=== PATIENT | female | born 1955 | race Caucasian/White ===

== ENCOUNTER 2016-06-01 11:03 | Emergency (ER) | payer MEDICAID | END 2016-06-01 12:38 | disposition left against medical advice (07) | LOC: UCEAST 11:03 | DX: T14.8 Other injury of unspecified body region (principal); W57.XXXA Bitten or stung by nonvenomous insect and other nonvenomous arthropods, initial encounter; Y93.9 Activity, unspecified; Y92.9 Unspecified place or not applicable; Z53.21 Procedure and treatment not carried out due to patient leaving prior to being seen by health care provider ==

== ENCOUNTER 2016-06-01 14:32 | Emergency (ER) | payer MEDICAID, OTHER ==
[2016-06-01 16:47] VITALS: BP 106/65
--- NOTE | 2016-06-01 17:07 | UC ---
Skin Complaint HPI - HPI Summary HPI Summary: PT NOTICED A TICK ATTACHED TO RIGHT LOWER ABDOMEN THIS MORNING. REMOVED IT BUT DID NOT GET THE WHOLE THING. SHE IS FAIRLY CERTAIN THE TICK ATTACHED YESTERDAY AFTERNOON WHILE SHE WAS OUT GARDENING. - History of Current Complaint Chief Complaint: UCSkin Time Seen by Provider: 06/01/16 16:51 Stated Complaint: TICK BITE Hx Obtained From: Patient Onset/Duration: Sudden Onset Skin Exposure Onset/Duration: Hours Ago Timing: Constant Onset Severity: Mild Current Severity: Mild Pain Intensity: 0 Pain Scale Used: 0-10 Numeric Location: Other - RIGHT LOWER ABDOMEN Character: Pain, Redness Aggravating: Touch Alleviating: Nothing Associated Signs & Symptoms: Positive: Tenderness. Negative: Nausea, Weakness, Fever, Chills, Throat Tightening, Rash, Abdominal Pain, Lightheadedness, Syncope , Drainage, Bruising, Red Streaks Related History: Insect Bite/Sting - Allergy/Home Medications Allergies/Adverse Reactions: Allergies Allergy/AdvReac Type Severity Reaction Status Date / Time NSAIDs Allergy Severe Swelling Verified 06/01/16 16:39 Of Face,Lips,& Throat Review of Systems Constitutional: Negative Skin: Other - TICK BITE Respiratory: Negative Cardiovascular: Negative Gastrointestinal: Negative All Other Systems Reviewed And Are Negative: Yes PMH/Surg Hx/FS Hx/Imm Hx Endocrine History Of: Reports: Thyroid Disease - hypo Respiratory History Of: Reports: Asthma - Surgical History Surgical History: Yes Surgery Procedure, Year, and Place: tonsilectomy. thyroidectomy. hysterectomy. bladder lift with mesh. nasal reconstruction. left breast mastectomy - Family History Known Family History: Positive: Hypertension, Diabetes - Social History Alcohol Use: Rare Substance Use Type: None Smoking Status (MU): Never Smoked Tobacco Have You Smoked in the Last Year: No - Immunization History Most Recent Influenza Vaccination: none Physical Exam Triage Information Reviewed: Yes Appearance: Well-Appearing, No Pain Distress, Well-Nourished Vital Signs: Initial Vital Signs Temp 97.8 F 06/01/16 16:44 Pulse 64 06/01/16 16:44 Resp 16 06/01/16 16:44 BP 106/65 06/01/16 16:44 Pulse Ox 100 06/01/16 16:44 Vital Signs Reviewed: Yes Eyes: Positive: Conjunctiva Clear ENT: Positive: Hearing grossly normal Neck: Positive: Supple Respiratory: Positive: No respiratory distress, No accessory muscle use Cardiovascular: Positive: Pulses Normal Abdomen Description: Positive: Soft Musculoskeletal: Positive: No Edema Neurological: Positive: Alert Psychological: Positive: Age Appropriate Behavior Skin: Positive: Other - TICK BITE SITE RIGHT LOWER ABDOMEN. MILDLY TENDER. <1CM AREA OF SURROUNDING ERYTHEMA. PINPOINT SIZED TICK PART RETAINED. Course/Dx - Course Course Of Treatment: RETAINED TICK PART REMOVED USING 18 GAUGE NEEDLE. COUNSELED PT ON CRITERIA FOR LYME PROPHYLAXIS. PT DOES NOT MEET CRITERIA BASED ON LENGTH OF TIME OF TICK ATTACHMENT. SHE WILL BE VIGILANT OF HER SYMPTOMS AND SEEK FOLLOW-UP IF NEEDED. - Diagnoses Provider Diagnoses: TICK BITE Discharge - Discharge Plan Condition: Stable Disposition: HOME Patient Education Materials: Tick Bite (ED) Referrals: Sobia PECK,Destin Lainez [Primary Care Provider] - If Needed Additional Instructions: The Infectious Disease Society of [place] (IDSA) does not generally recommend antimicrobial prophylaxis for prevention of Lyme disease after a recognized tick bite. However, in areas that are highly endemic for Lyme disease, a single dose of doxycycline may be offered to adult patients (200 mg) who are not and to children older than 8 years of age (4 mg/kg up to a maximum dose of 200 mg) when all of the following circumstances exist: CRITERIA FOR RECEIVING PROPHYLACTIC TREATMENT FOR LYME DISEASE 1) TICK ATTACHED FOR AT LEAST 36 HRS 2) TICK IS AN ADULT OR [place] DEER TICK 3) YOU LIVE IN AN AREA WHERE LYME DISEASE IS PREVALENT (i.e., [place], [place], [place], [place], [place] , [place], [place], [place], [place], [place], [place], [place], [place], [place]) 4) YOU HAVE NO CONTRAINDICATION TO THE MEDICATION (DOXYCYCLINE) 5) PROPHYLAXIS IS BEGUN WITHIN 72 HRS OF TICK REMOVAL SINCE YOU DO NOT MEET ALL THESE CRITERIA THERE IS NO NEED TO GIVE YOU PROPHYLACTIC ANTIBIOTICS. YOUR CHANCES OF DEVELOPING LYME DISEASE ARE EXTREMELY SMALL. BE VIGILANT OF YOUR SYMPTOMS AND DON'T HESITATE TO GET SEEN AGAIN IF YOU DEVELOP UNEXPLAINED FEVER, HEADACHE, JOINT PAIN, BODY ACHES, RASH OR ANY OTHER CONCERNING SYMPTOMS. Antibiotic treatment following a tick bite is not recommended as a means to prevent anaplasmosis, babesiosis, ehrlichiosis, or [place] spotted fever. There is no evidence this practice is effective, and it may simply delay onset of disease. Instead, persons who experience a tick bite should be alert for symptoms suggestive of tickborne illness and consult a physician if fever, rash, or other symptoms of concern develop.
== END 2016-06-01 17:25 | disposition home or self-care (01) ==
LOC: UCEAST 14:32
DX: S30.861A Insect bite (nonvenomous) of abdominal wall, initial encounter (principal); W57.XXXA Bitten or stung by nonvenomous insect and other nonvenomous arthropods, initial encounter; Y92.9 Unspecified place or not applicable; E03.9 Hypothyroidism, unspecified; J45.909 Unspecified asthma, uncomplicated
CPT/HCPCS: 99211; G0463

== ENCOUNTER 2016-06-09 09:22 | Emergency (ER) | payer MEDICAID ==
[2016-06-09 09:43] VITALS: BP 110/55
--- NOTE | 2016-06-09 10:54 | UC ---
Page Saab Auryana, scribed for Kenan Ferrer MD on 06/09/16 at 1042 . Headache HPI - HPI Summary HPI Summary: 60 year old female presents with left sided neck pain starting a few days ago becoming progressively worse. She also reports frontal headache, right knee arthralgia, and fatigue. She states that she has had increasingly worse asthma with associated productive cough but she denies fever and chills. She states the neck pain is radiating into the neck. Patient reports that she was bit by a tick 8 days ago, removed the body and but went to physician the following day to have rest removed. She reports that she a few days ago she removed the rest of the head. No medications were prescribed at time of physician visit. - History Of Current Complaint Chief Complaint: UCHeadache Stated Complaint: HEADACHES, NECK PAIN Time Seen by Provider: 06/09/16 10:20 Hx Obtained From: Patient Hx Last Menstrual Period: N/A ?: No Onset/Duration: Gradual Onset, Still Present Onset Of Symptoms: Gradual, Still Present Initially Headache Was: Moderate Currently Pain Is: Moderate Timing: Constant Location of Headache: Frontal Associated Signs And Symptoms: Positive: Neck Pain, Other (Noted In Comments) - fatigue, productive cough, right knee arthralgia Related History: Similar Episode/DX As: - see HPI - Allergies/Home Medications Allergies/Adverse Reactions: Allergies Allergy/AdvReac Type Severity Reaction Status Date / Time NSAIDs Allergy Severe Swelling Verified 06/01/16 16:39 Of Face,Lips,& Throat PMH/Surg Hx/FS Hx/Imm Hx Endocrine History Of: Reports: Thyroid Disease - hypo Respiratory History Of: Reports: Asthma - Surgical History Surgical History: Yes Surgery Procedure, Year, and Place: tonsilectomy. thyroidectomy. hysterectomy. bladder lift with mesh. nasal reconstruction. left breast mastectomy - Family History Known Family History: Positive: None, Hypertension, Diabetes - Social History Occupation: Employed Part-time Lives: Alone Alcohol Use: Rare Substance Use Type: None Smoking Status (MU): Never Smoked Tobacco Have You Smoked in the Last Year: No - Immunization History Most Recent Influenza Vaccination: none Review of Systems Constitutional: Fatigue Skin: Negative Eyes: Negative ENT: Negative Respiratory: Cough - productive Cardiovascular: Negative Gastrointestinal: Negative Genitourinary: Negative Motor: Negative Neurovascular: Negative Musculoskeletal: Arthralgia - right knee, Other: - neck pain Neurological: Headache - frontal Psychological: Negative All Other Systems Reviewed And Are Negative: Yes Physical Exam Triage Information Reviewed: Yes Appearance: Well-Nourished, Pain Distress - mild Vital Signs: Initial Vital Signs Temp 97.9 F 06/09/16 09:36 Pulse 60 06/09/16 09:36 Resp 16 06/09/16 09:36 BP 110/55 06/09/16 09:36 Pulse Ox 100 06/09/16 09:36 Vital Signs Reviewed: Yes Eyes: Positive: Conjunctiva Clear ENT: Positive: Normal ENT inspection Neck: Positive: Supple, Tenderness @ - left posterior neck - lateral muscles - down to the trapezius Respiratory: Positive: Lungs clear Cardiovascular: Positive: RRR Bowel Sounds: Positive: Present Musculoskeletal: Positive: ROM Intact Neurological: Positive: Alert Psychological: Positive: Age Appropriate Behavior Skin: Positive: Other - RLQ 1cm area of erythema s/p tickbite Headache Course/Dx - Course Course Of Treatment: DICUSSED WITH PATIENT; DDX OF MYALGIAS, ARTHRALGIA, LYME. WILL TREAT FOR LYME AND RX NORCO FOR PAIN. CLINICALLY, THIS IS NOT MENINGITIS AT THIS TIME; LEFT NECK PAIN, FRONTAL LANDA, NO FEVER. DISCUSSED PMD F/U AND TO GO TO EMERGENCY DEPARTMENT IF WORSEN. - Differential Dx/Diagnosis Provider Diagnoses: LEFT SIDED NECK PAIN, FRONTAL HEADACHE, RT KNEE PAIN IN THE CONTEXT OF A RECENT TICK BITE. Discharge - Discharge Plan Condition: Stable Disposition: HOME Patient Education Materials: Tick Bite (ED), Acute Neck Pain (ED), General Headache (ED) Referrals: Sobia PECK,Destin Lainez [Primary Care Provider] - 2 Days Additional Instructions: FOLLOW UP WITH YOUR DOCTOR FOR YOUR NECK PAIN, HEADACHE, KNEE PAIN AND TICK BITE. YOU HAVE BLOOD WORK, TO INCLUDE A LYME TITER, PENDING. GO THE EMERGENCY DEPARTMENT WITH ANY WORSENING OF YOUR CONDITION OR QUESTIONS OR CONCERNS. The documentation as recorded by the Page hennessy Auryana accurately reflects the service I personally performed and the decisions made by me, Kenan Ferrer MD.
[2016-06-09 16:16] LABS: ALT 16 U/L (7-52); AST 16 U/L (13-39); Albumin 4.4 g/dL (3.2-5.2); Alkaline Phosphatase 70 U/L (34-104); Anion Gap 5 mmol/L (2-11); BUN/Creatinine Ratio 28.9 (8-20); Blood Urea Nitrogen 26 mg/dL (6-24); C Reactive Protein < 1.00 mg/L (< 5.00); CO2 Carbon Dioxide 29 mmol/L (22-32); Calcium 9.1 mg/dL (8.6-10.3); Chloride 104 mmol/L (101-111); EGFR African American 81.6 (>60); EGFR Non-African American 63.4 (>60); Globulin 1.8 g/dL (2-4); Glucose 94 mg/dL (70-100); Potassium 4.7 mmol/L (3.5-5.0); Sodium 138 mmol/L (133-145); Total Protein 6.2 g/dL (6.4-8.9)
[2016-06-09 16:20] LABS: Hematocrit 40 % (35-47); Hemoglobin 12.8 g/dl (12.0-16.0); Mean Corpuscular HGB Conc 32 g/dl (31-36); Mean Corpuscular Hemoglobin 29 pg (27-31); Mean Corpuscular Volume 88 fL (80-97); Mean Platelet Volume 10 um3 (7.4-10.4); Red Blood Count 4.49 10^6/ul (4.0-5.4); Red Cell Distribution Width 15 % (10.5-15); White Blood Count 19.7 10^3/ul (3.5-10.8)
[2016-06-09 16:22] LABS: Add Diff/Slide Review? Slide Review Added; Comments Flag Yes
[2016-06-09 17:05] LABS: Add Path Review? YES; Neutrophil % 19 % (38-83); RBC Morphology Normal (Normal); Reactive Lymph % 33 % (0-6)
[2016-06-09 17:17] LABS: Manual Entry Verification MD; Mono Internal Control QC Line Present
== END 2016-06-09 11:07 | disposition home or self-care (01) ==
LOC: UCEAST 09:22
DX: M54.2 Cervicalgia (principal); R51 Headache; M25.561 Pain in right knee; E03.9 Hypothyroidism, unspecified; J45.909 Unspecified asthma, uncomplicated; Z90.710 Acquired absence of both cervix and uterus; Z88.6 Allergy status to analgesic agent
CPT/HCPCS: 36415; 80053; 85025; 85060; 86140; 86308; 86618; 99212; G0463

== ENCOUNTER 2016-06-10 16:10 | Emergency (ER) | payer MEDICAID ==
[2016-06-10] MEDS ORDERED: NS 0.9% 1000 ML* 1,000 ML IV ONE (17:49)
[2016-06-10 18:43] LABS: Hematocrit 35 % (35-47); Hemoglobin 11.5 g/dl (12.0-16.0); Mean Corpuscular HGB Conc 33 g/dl (31-36); Mean Corpuscular Hemoglobin 29 pg (27-31); Mean Corpuscular Volume 88 fL (80-97); Mean Platelet Volume 9 um3 (7.4-10.4); Red Blood Count 4.01 10^6/ul (4.0-5.4); Red Cell Distribution Width 15 % (10.5-15)
--- NOTE | 2016-06-10 18:43 | RAD ---
HISTORY: Headache COMPARISONS: May 05, 2004 TECHNIQUE: Multiple contiguous axial CT scans were obtained of the head without intravenous contrast. FINDINGS: HEMORRHAGE/INFARCT: There is no hemorrhage or acute infarct. MASSES/SHIFT: There is no mass or shift. EXTRA-AXIAL SPACES: There are no extra-axial fluid collections. SULCI AND VENTRICLES: The sulci and ventricles are normal in size and position for the patient's stated age. CEREBRUM: There are no focal parenchymal abnormalities. BRAINSTEM: There are no focal parenchymal abnormalities. CEREBELLUM: There are no focal parenchymal abnormalities. VESSELS: The vessels are grossly normal. PARANASAL SINUSES: The paranasal sinuses are clear. ORBITS: The orbits are unremarkable. BONES AND SOFT TISSUE: No bone or soft tissue abnormalities are noted. OTHER: None IMPRESSION: NO ACUTE INTRACRANIAL PATHOLOGY.
[2016-06-10 18:44] LABS: Add Diff/Slide Review? Slide Review Added; Comments Flag Yes
[2016-06-10 19:18] LABS: Neutrophil % 18 % (38-83); RBC Morphology Normal (Normal); Reactive Lymph % 19 % (0-6)
[2016-06-10 20:00] LABS: ALT 16 U/L (7-52); AST 19 U/L (13-39); Albumin 3.7 g/dL (3.2-5.2); Alkaline Phosphatase 63 U/L (34-104); Anion Gap 6 mmol/L (2-11); BUN/Creatinine Ratio 28.9 (8-20); Blood Urea Nitrogen 26 mg/dL (6-24); C Reactive Protein < 1.00 mg/L (< 5.00); CO2 Carbon Dioxide 28 mmol/L (22-32); Calcium 8.7 mg/dL (8.6-10.3); Chloride 105 mmol/L (101-111); EGFR African American 81.6 (>60); EGFR Non-African American 63.4 (>60); Glucose 109 mg/dL (70-100); Lipase 45 U/L (11.0-82.0); Sodium 139 mmol/L (133-145); Total Protein 5.7 g/dL (6.4-8.9)
[2016-06-10] MEDS ORDERED: NS 0.9% 1000 ML* 1,000 ML IV SCH (21:30)
[2016-06-10 22:06] LABS: Body Fluid Appearance Clear
[2016-06-10 22:16] LABS: BF RBC Count #1 0; BF RBC Count #2 0; BF WBC Count #1 0; BF WBC Count #2 0; Body Fluid WBC 0 /mcL; CSF Glucose 58 mg/dL (40-70); RBC counts within 6%? Yes; WBC counts within 15%? Yes
[2016-06-10 22:32] LABS: Body Fluid Total Cells Counted 1
--- NOTE | 2016-06-10 22:55 | ED ---
Hitesh Saab Anna, scribed for Kenan Ferrer MD on 06/10/16 at 1729 . Headache - HPI Summary HPI Summary: Patient is a 60 y/o female coming to [facility] presenting with a worsening LANDA that began five days ago. She describes the severity of the pain as 6/10. Patient was seen yesterday at [facility] [place]. She had a tick nine days ago, which was removed by her doctor, but then she later found the tick head in her skin. She then developed head and neck pain begining seven days ago. She additionally reports fatigue. She denies fever. She started taking Doxycycline was prescribed yesterday, but she has not gotten it yet. Her history is significant for CLL. She reports the WBC from yesterdays labs is lower than her most recent visit to oncology. Her lyme screen yesterday was negative. Patient medications have been reviewed this visit. - History Of Current Complaint Chief Complaint: EDNeckComplaint Stated Complaint: TICK BITE-SENT FROM [facility] Time Seen by Provider: 06/10/16 17:27 Hx Obtained From: Patient Hx Last Menstrual Period: N/A Onset/Duration: Sudden Onset, Started days ago, Still Present Currently Pain Is: Current Pain Scale(0-10)= - 6/10 Location of Headache: Frontal Associated Signs And Symptoms: Neck Pain - Allergies/Home Medications Allergies/Adverse Reactions: Allergies Allergy/AdvReac Type Severity Reaction Status Date / Time NSAIDs Allergy Severe Swelling Verified 06/01/16 16:39 Of Face,Lips,& Throat PMH/Surg Hx/FS Hx/Imm Hx Endocrine/Hematology History: Reports: Hx Thyroid Disease - hypo Respiratory History: Reports: Hx Asthma - Cancer History Cancer Type, Location and Year: clll, breast ca - Surgical History Surgery Procedure, Year, and Place: tonsilectomy. thyroidectomy. hysterectomy. bladder lift with mesh. nasal reconstruction. left breast mastectomy Infectious Disease History: Reports: Hx Shingles Denies: Hx Hepatitis, Hx of Known/Suspected MRSA, History Other Infectious Disease, Traveled Outside the [place] in Last 30 Days - Family History Known Family History: Positive: Hypertension, Diabetes - Social History Alcohol Use: Rare Substance Use Type: Reports: None Smoking Status (MU): Never Smoked Tobacco Have You Smoked in the Last Year: No Review of Systems Negative: Fever Positive: Arthralgia Positive: Headache All Other Systems Reviewed And Are Negative: Yes Physical Exam Triage Information Reviewed: Yes Vital Signs On Initial Exam: Initial Vitals Temp Pulse Resp BP Pulse Ox 98.1 F 70 18 118/53 100 06/10/16 16:12 06/10/16 16:12 06/10/16 16:12 06/10/16 16:12 06/10/16 16:12 Vital Signs Reviewed: Yes Appearance: Positive: Well-Appearing, No Pain Distress Skin: Positive: Warm, Skin Color Reflects Adequate Perfusion, Dry Head/Face: Positive: Normal Head/Face Inspection Eyes: Positive: EOMI, SHAMIKA ENT: Positive: Normal ENT inspection Neck: Positive: Supple, Other: - Full range of motion. Some pain with ROM of neck. Respiratory/Lung Sounds: Positive: Clear to Auscultation, Breath Sounds Present Cardiovascular: Positive: RRR Abdomen Description: Positive: Nontender, Soft Bowel Sounds: Positive: Present Musculoskeletal: Positive: Normal, Strength/ROM Intact Neurological: Positive: Normal, Sensory/Motor Intact, Alert, Oriented to Person Place, Time Psychiatric: Positive: Affect/Mood Appropriate Procedures - Lumbar Puncture Position: Sitting Aseptic Technique: Local Anesthesia, Lidocaine Anesthesia Used: 1.0% Lido Spinal Needle Used: 22 Gauge Lumbar Puncture Note: TOLERATED THE PROCEDURE WELL Diagnostics - Vital Signs Vital Signs Temp Pulse Resp BP Pulse Ox 06/10/16 16:59 98.1 F 70 18 118/53 100 06/10/16 16:12 98.1 F 70 18 118/53 100 - Laboratory Lab Results: Lab Results 06/10/16 06/10/16 06/10/16 Range/Units 18:20 18:20 18:20 WBC 17.0 H (3.5-10.8) 10^3/ul RBC 4.01 (4.0-5.4) 10^6/ul Hgb 11.5 L (12.0-16.0) g/dl Hct 35 (35-47) % MCV 88 (80-97) fL MCH 29 (27-31) pg MCHC 33 (31-36) g/dl RDW 15 (10.5-15) % Plt Count 132 L (150-450) 10^3/ul MPV 9 (7.4-10.4) um3 Neut % (Auto) 15.8 L (38-83) % Lymph % (Auto) 81.3 H (25-47) % [place] % (Auto) 2.5 (1-9) % Eos % (Auto) 0 (0-6) % Baso % (Auto) 0.4 (0-2) % Absolute Neuts (auto) 2.7 (1.5-7.7) 10^3/ul Absolute Lymphs (auto) 13.8 H (1.0-4.8) 10^3/ul Absolute Monos (auto) 0.4 (0-0.8) 10^3/ul Absolute Eos (auto) 0 (0-0.6) 10^3/ul Absolute Basos (auto) 0.1 (0-0.2) 10^3/ul Absolute Nucleated RBC 0.05 10^3/ul Neutrophils % 18 L (38-83) % Lymphocytes % 59 H (25-47) % Reactive Lymphs % 19 H D (0-6) % Monocytes % 4 (0-13) % Nucleated RBC % 0.3 Normal RBC Morphology Normal (Normal) INR (Anticoag Therapy) 0.90 (0.89-1.11) APTT 33.6 (26.0-36.3) seconds Sodium 139 (133-145) mmol/L Potassium 4.0 (3.5-5.0) mmol/L Chloride 105 (101-111) mmol/L Carbon Dioxide 28 (22-32) mmol/L Anion Gap 6 (2-11) mmol/L BUN 26 H (6-24) mg/dL Creatinine 0.90 (0.51-0.95) mg/dL Est GFR ( Amer) 81.6 (>60) Est GFR (Non-Af Amer) 63.4 (>60) BUN/Creatinine Ratio 28.9 H (8-20) Glucose 109 H (70-100) mg/dL Lactic Acid (0.5-2.0) mmol/L Calcium 8.7 (8.6-10.3) mg/dL Total Bilirubin 0.30 (0.2-1.0) mg/dL AST 19 (13-39) U/L ALT 16 (7-52) U/L Alkaline Phosphatase 63 (34-104) U/L C-Reactive Protein < 1.00 (< 5.00) mg/L Total Protein 5.7 L (6.4-8.9) g/dL Albumin 3.7 (3.2-5.2) g/dL Globulin 2.0 (2-4) g/dL Albumin/Globulin Ratio 1.9 (1-3) Lipase 45 (11.0-82.0) U/L CSF Glucose (40-70) mg/dL CSF Total Protein (15-45) mg/dL Monoscreen Cancelled 06/10/16 06/10/16 Range/Units 18:20 21:45 WBC (3.5-10.8) 10^3/ul RBC (4.0-5.4) 10^6/ul Hgb (12.0-16.0) g/dl Hct (35-47) % MCV (80-97) fL MCH (27-31) pg MCHC (31-36) g/dl RDW (10.5-15) % Plt Count (150-450) 10^3/ul MPV (7.4-10.4) um3 Neut % (Auto) (38-83) % Lymph % (Auto) (25-47) % [place] % (Auto) (1-9) % Eos % (Auto) (0-6) % Baso % (Auto) (0-2) % Absolute Neuts (auto) (1.5-7.7) 10^3/ul Absolute Lymphs (auto) (1.0-4.8) 10^3/ul Absolute Monos (auto) (0-0.8) 10^3/ul Absolute Eos (auto) (0-0.6) 10^3/ul Absolute Basos (auto) (0-0.2) 10^3/ul Absolute Nucleated RBC 10^3/ul Neutrophils % (38-83) % Lymphocytes % (25-47) % Reactive Lymphs % (0-6) % Monocytes % (0-13) % Nucleated RBC % Normal RBC Morphology (Normal) INR (Anticoag Therapy) (0.89-1.11) APTT (26.0-36.3) seconds Sodium (133-145) mmol/L Potassium (3.5-5.0) mmol/L Chloride (101-111) mmol/L Carbon Dioxide (22-32) mmol/L Anion Gap (2-11) mmol/L BUN (6-24) mg/dL Creatinine (0.51-0.95) mg/dL Est GFR ( Amer) (>60) Est GFR (Non-Af Amer) (>60) BUN/Creatinine Ratio (8-20) Glucose (70-100) mg/dL Lactic Acid 0.6 (0.5-2.0) mmol/L Calcium (8.6-10.3) mg/dL Total Bilirubin (0.2-1.0) mg/dL AST (13-39) U/L ALT (7-52) U/L Alkaline Phosphatase (34-104) U/L C-Reactive Protein (< 5.00) mg/L Total Protein (6.4-8.9) g/dL Albumin (3.2-5.2) g/dL Globulin (2-4) g/dL Albumin/Globulin Ratio (1-3) Lipase (11.0-82.0) U/L CSF Glucose 58 (40-70) mg/dL CSF Total Protein 38 (15-45) mg/dL Monoscreen Result Diagrams: 06/10/16 18:20 06/10/16 18:20 Lab Statement: Any lab studies that have been ordered have been reviewed, and results considered in the medical decision making process. - CT Brain CT CT Interpretation: No Acute Changes CT Interpretation Completed By: Radiologist - IMPRESSION: NO ACUTE INTRACRANIAL PATHOLOGY. - Additional Comments Diagnostic Additional Comments: LP preliminary results: No Polys Observed. No Organisms Seen. Preparation by Cytospin Smear Re-Evaluation - Re-Evaluation First Eval Re-Evaluation Time: 18:56 Comment: Discussed results and plan of care with patient. Patient is agreeable with plan. Second Eval Re-Evaluation Time: 20:57 Comment: Patient expressed that she was still in pain, of severity 7/10. Headache Course/Dx - Course Course Of Treatment: CRITICAL CARE TIME LESS THAN 30 MINUTES Assessment/Plan: DISCUSSED RESULTS WITH PATIENT. NO SIGN OF MENINGITIS ON SPINAL FLUID. DISCHARGE HOME STABLE. - Diagnoses Provider Diagnoses: Headache, Neck pain, CLL (chronic lymphocytic leukemia), Tick bite Discharge - Discharge Plan Condition: Stable Disposition: HOME Patient Education Materials: General Headache (ED), Lumbar Puncture (ED), Neck Pain (ED), Tick Bite (ED) Referrals: Sobia PECK,Destin Lainez [Primary Care Provider] - Additional Instructions: FOLLOW UP WITH YOUR DOCTOR. RETURN TO THE EMERGENCY DEPARTMENT FOR ANY WORSENING OF YOUR CONDITION; PAIN, FEVER, YOU FEEL ILL, WEAKNESS, NUMBNESS OR QUESTIONS OR CONCERNS. The documentation as recorded by the Hitesh hennessy Anna accurately reflects the service I personally performed and the decisions made by me, Kenan Ferrer MD.
[2016-06-10 23:38] VITALS: BP 130/78
== END 2016-06-10 23:36 | disposition home or self-care (01) ==
LOC: ED 16:10
DX: T14.8 Other injury of unspecified body region (principal); C91.10 Chronic lymphocytic leukemia of B-cell type not having achieved remission; R51 Headache; M54.2 Cervicalgia; W57.XXXA Bitten or stung by nonvenomous insect and other nonvenomous arthropods, initial encounter; Y93.9 Activity, unspecified; Y92.9 Unspecified place or not applicable; R53.83 Other fatigue
CPT/HCPCS: 36415; 62270; 70450; 80053; 82945; 83605; 83690; 84157; 85025; 85610; 85730; 86140; 86617; 86618; 87040; 87070; 87205; 89051; 96360; 99282; J0696

== ENCOUNTER 2016-11-10 12:30 | Emergency (ER) | payer SELFPAY ==
[2016-11-10 12:41] VITALS: BP 110/61
--- NOTE | 2016-11-10 13:22 | RAD ---
INDICATION: Left foot injury COMPARISON: None TECHNIQUE: AP, lateral, and oblique views were obtained. FINDINGS: There is no acute fracture or dislocation. There is mild soft tissue swelling about the fifth toe. IMPRESSION: NO ACUTE FRACTURE.
--- NOTE | 2016-11-10 13:45 | UC ---
Lower Extremity/Ankle HPI - HPI Summary HPI Summary: 61F presents with left foot pain today. 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 She denies any numbness or tingling. she still is able to move her toes. She denies any previous injury to the area. She is able to ambulate. - History of Current Complaint Chief Complaint: UCLowerExtremity Stated Complaint: TOE INJURY Time Seen by Provider: 11/10/16 12:56 Hx Last Menstrual Period: N/A - Allergies/Home Medications Allergies/Adverse Reactions: Allergies Allergy/AdvReac Type Severity Reaction Status Date / Time NSAIDs Allergy Severe Swelling Verified 06/01/16 16:39 Of Face,Lips,& Throat Home Medications: Home Medications EPINEPHrine AMP 1 MG/ML* 0.3 mg SUBCUT ONCE 11/10/16 [History Confirmed 11/10/16 ] Zolmitriptan [Zomig] 2.5 mg PO 11/10/16 [History] PMH/Surg Hx/FS Hx/Imm Hx Endocrine History: Hypothyroidism GI/ History: Gastroesophageal Reflux - Surgical History Surgical History: Yes Surgery Procedure, Year, and Place: tonsilectomy. thyroidectomy. hysterectomy. bladder lift with mesh. nasal reconstruction. mastectomy. left breast mastectomy - Family History Known Family History: Positive: None, Hypertension, Diabetes - Social History Alcohol Use: Rare Substance Use Type: None Smoking Status (MU): Never Smoked Tobacco Have You Smoked in the Last Year: No - Immunization History Most Recent Influenza Vaccination: none Review of Systems Constitutional: Negative Musculoskeletal: Other: - left foot pain All Other Systems Reviewed And Are Negative: Yes Physical Exam Triage Information Reviewed: Yes Appearance: Well-Appearing Vital Signs: Initial Vital Signs Temp 98.3 F 11/10/16 12:37 Pulse 82 11/10/16 12:37 Resp 16 11/10/16 12:37 BP 110/61 11/10/16 12:37 Pulse Ox 99 11/10/16 12:37 Vital Signs Reviewed: Yes Eyes: Positive: Conjunctiva Clear Respiratory: Positive: Lungs clear, Normal breath sounds Cardiovascular: Positive: RRR Musculoskeletal: Positive: Edema @ - left pinky toe phlanx, Other: - tenderness on distal phalnax 5th left toe, good pulses, has ROM, capillary refill<2 secs Neurological Exam: Normal Psychological Exam: Normal Skin Exam: Normal Diagnostics - Radiology foot Xray Interpretation: No Acute Changes Lower Extremity Course/Dx - Course Course Of Treatment: 61F presents with left foot pain today. 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 She denies any numbness or tingling. she still is able to move her toes. She denies any previous injury to the area. She is able to ambulate. on exam swelling to left big toe. neurovascular intact. xray normal. elsa taped. will treat with RICE. patient understands and agrees with plan. - Differential Dx/Diagnosis Differential Diagnosis/HQI/PQRI: Fracture (Closed), Sprain, Strain Provider Diagnoses: left foot contusion Discharge - Discharge Plan Condition: Good Disposition: HOME Patient Education Materials: Foot Contusion (ED) Referrals: Sobia PECK,Destin Lainez [Primary Care Provider] - Additional Instructions: Take Tylenol every 6 hours as needed for pain Apply ice, rest, elevate Follow up with primary care physician within 7 days Return to ED if develop any new or worsening symptoms
== END 2016-11-10 13:53 | disposition home or self-care (01) ==
LOC: UCEAST 12:30
DX: S90.32XA Contusion of left foot, initial encounter (principal); W20.8XXA Other cause of strike by thrown, projected or falling object, initial encounter; Y93.9 Activity, unspecified; Y92.9 Unspecified place or not applicable; Y99.9 Unspecified external cause status; E03.9 Hypothyroidism, unspecified; K21.9 Gastro-esophageal reflux disease without esophagitis; Z88.6 Allergy status to analgesic agent
CPT/HCPCS: 99211; G0463

== ENCOUNTER 2017-04-25 12:54 | Emergency (ER) | payer SELFPAY ==
[2017-04-25 13:55] VITALS: BP 111/46
--- NOTE | 2017-04-25 15:46 | UC ---
Respiratory Complaint HPI - HPI Summary HPI Summary: 61 yo WF p/w worsening B/L sinus pains and cough with green yellow sputum x few days but started with a URI that began about 10 days ago, now worsening. Juan f /c - History of Current Complaint Chief Complaint: UCRespiratory Stated Complaint: SINUS COMPLAINT Time Seen by Provider: 04/25/17 15:23 Hx Obtained From: Patient Hx Last Menstrual Period: N/A Onset/Duration: Lasting Days, Still Present Timing: Constant Severity Initially: Moderate Severity Currently: Moderate Pain Intensity: 5 Character: Cough: Productive - Allergies/Home Medications Allergies/Adverse Reactions: Allergies Allergy/AdvReac Type Severity Reaction Status Date / Time NSAIDS (Non-Steroidal Allergy Swelling Verified 04/25/17 13:55 Anti-Inflamma Of Face,Lips,& Throat PMH/Surg Hx/FS Hx/Imm Hx Previously Healthy: Yes GI/ History: Gastroesophageal Reflux - Surgical History Surgical History: Yes Surgery Procedure, Year, and Place: tonsilectomy. thyroidectomy. hysterectomy. bladder lift with mesh. nasal reconstruction. mastectomy. left breast mastectomy - Family History Known Family History: Positive: None, Hypertension, Diabetes - Social History Alcohol Use: Rare Substance Use Type: None Smoking Status (MU): Never Smoked Tobacco Have You Smoked in the Last Year: No - Immunization History Most Recent Influenza Vaccination: none Review of Systems Constitutional: Negative Skin: Negative Eyes: Negative ENT: Nasal Discharge, Sinus Congestion, Sinus Pain/Tenderness Respiratory: Cough Cardiovascular: Negative Gastrointestinal: Negative Genitourinary: Negative Motor: Negative Neurovascular: Negative Musculoskeletal: Negative Neurological: Negative Psychological: Negative All Other Systems Reviewed And Are Negative: Yes Physical Exam Triage Information Reviewed: Yes Appearance: Ill-Appearing Vital Signs: Initial Vital Signs Temp 36.8 C 04/25/17 13:50 Pulse 69 04/25/17 13:50 Resp 14 04/25/17 13:50 BP 111/46 04/25/17 13:50 Pulse Ox 99 04/25/17 13:50 Eye Exam: Normal ENT Exam: Normal ENT: Positive: Nasal drainage, Sinus tenderness - B/L maxillary Dental Exam: Normal Neck: Positive: Tenderness @ - B/L post.auricular tenderness Respiratory: Positive: Rhonchi Cardiovascular Exam: Normal Abdominal Exam: Normal Musculoskeletal Exam: Normal Neurological Exam: Normal Psychological Exam: Normal Skin Exam: Normal UC Diagnostic Evaluation - Laboratory O2 Sat by Pulse Oximetry: 99 Respiratory Course/Dx - Differential Dx/Diagnosis Provider Diagnoses: B/L sinusitis. Acute bronchitis. Brochopneumonia Discharge - Discharge Plan Condition: Stable Disposition: HOME Prescriptions: Guaifenesin/Dextromethorphan [Mucinex Dm ER 600-30 mg Tablet] 1 each PO BID 10 Days #20 tab.er.12h Levofloxacin TAB* [Levaquin TAB*] 500 mg PO DAILY 7 Days #7 tab Patient Education Materials: Sinusitis (ED), Acute Bronchitis (ED) Referrals: Sobia PECK,Destin Lainez [Primary Care Provider] - Additional Instructions: take medications as directed, follow up with PCP within one week
== END 2017-04-25 15:40 | disposition home or self-care (01) ==
LOC: UCEAST 12:54
DX: J32.9 Chronic sinusitis, unspecified (principal); J20.9 Acute bronchitis, unspecified; J18.0 Bronchopneumonia, unspecified organism; K21.9 Gastro-esophageal reflux disease without esophagitis; Z88.6 Allergy status to analgesic agent
CPT/HCPCS: 99212; G0463

== ENCOUNTER 2017-10-09 10:21 | Emergency (ER) | payer SELFPAY ==
[2017-10-09 10:46] VITALS: BP 120/60
--- NOTE | 2017-10-09 11:04 | UC ---
Respiratory Complaint HPI - HPI Summary HPI Summary: This patient is a 65 year old [place] [facility] [place] chief complaint of URI symptoms since 4 days ago. Patient states that she has a sore lymph node on her left neck, cough, nasal congestion, green/yellow nasal discharge, and left sided earache. Patient was seen at the ED a few weeks ago for a TIA, but she states that these new symptoms are likely due to people (grandkids) around getting sick with the same thing. The pain is rated 2/10 in severity. Symptoms aggravated by nothing. Symptoms alleviated by nothing. Patient states that her sx are not improving and may even be worsening. Patient denies chest pain, Shortness of breath , abd pain, nausea, vomiting. She does have associated headache - History of Current Complaint Chief Complaint: UCRespiratory Stated Complaint: URI Time Seen by Provider: 10/09/17 10:51 Hx Obtained From: Patient Hx Last Menstrual Period: N/A Onset/Duration: Gradual Onset, Lasting Days, Still Present Timing: Constant Severity Currently: Mild Pain Intensity: 2 Pain Scale Used: 0-10 Numeric Character: Cough: Productive, Sputum Description: - greenish yellow Aggravating Factors: Nothing Alleviating Factors: Nothing Associated Signs And Symptoms: Positive: Negative - chest pain, abd pain, nausea , vomiting, Nasal Congestion, Sinus Discomfort - Allergies/Home Medications Allergies/Adverse Reactions: Allergies Allergy/AdvReac Type Severity Reaction Status Date / Time NSAIDS (Non-Steroidal Allergy Swelling Verified 10/09/17 10:46 Anti-Inflamma Of Face,Lips,& Throat Home Medications: Home Medications Acyclovir* [Zovirax 200 MG CAP*] 200 mg PO DAILY 10/09/17 [History Confirmed 03/27] Calcium/Vitamin D TAB 250/125* [Oscal D TAB 250/125*] 500 mg PO DAILY 10/09/17 [ History Confirmed 10/09/17] FLUoxetine CAP* [PROzac CAP*] 60 mg PO DAILY 10/09/17 [History Confirmed ] Levothyroxine TAB* [Synthroid TAB*] 150 mcg PO DAILY 10/09/17 [History Confirmed 10/09/17] Levothyroxine TAB* [Synthroid TAB*] 175 mcg PO DAILY 10/09/17 [History Confirmed 10/09/17] PMH/Surg Hx/FS Hx/Imm Hx Previously Healthy: Yes Endocrine History: Hypothyroidism Other Endocrine History: negative Other Cardiovascular History: negative Respiratory History: Asthma Other Respiratory History: negative Other GI/ History: negative Other Neurological History: negative Other Psychological History: negative Other Cancer History: negative Other History Of: Negative For: Hepatitis B, Hepatitis C - Surgical History Surgical History: Yes Surgery Procedure, Year, and Place: tonsilectomy. thyroidectomy. hysterectomy. bladder lift with mesh. nasal reconstruction. mastectomy. left breast mastectomy - Family History Known Family History: Positive: Hypertension, Diabetes - Social History Alcohol Use: Rare Substance Use Type: None Smoking Status (MU): Never Smoked Tobacco Have You Smoked in the Last Year: No - Immunization History Most Recent Influenza Vaccination: none Review of Systems Constitutional: Negative - Fever Skin: Negative Eyes: Negative ENT: Sore Throat, Ear Ache, Nasal Discharge, Sinus Congestion, Sinus Pain/ Tenderness Respiratory: Cough Cardiovascular: Negative - chest pain Gastrointestinal: Negative - abd pain, vomiting, nausea Genitourinary: Negative Motor: Negative Neurovascular: Negative Musculoskeletal: Negative Neurological: Headache Psychological: Negative Is Patient Immunocompromised?: No All Other Systems Reviewed And Are Negative: Yes Physical Exam - Summary Physical Exam Summary: Appearance: Well-Appearing, No Pain Distress, Well-Nourished Eyes: conjunctiva clear, no discharge ENT: Mild pharyngeal erythema, Tenderness of the frontal and maxillary sinuses bilaterally. TM appear normal bilaterally. Neck: Tender left anterior cervical lymphadenopathy Respiratory/Lung Sounds: Lungs clear, Normal breath sounds, No respiratory distress, No accessory muscle use Cardiovascular: RRR, No murmur Abdomen: Nontender, Soft, no guarding, not distended Bowel Sounds: Present Musculoskeletal: Normal Neurological: Alert, muscle tone normal Psychiatric:Normal, age appropriate behavior Skin: Normal, Warm, Dry, Normal color Triage Information Reviewed: Yes Vital Signs: Initial Vital Signs Temp 98 F 10/09/17 10:42 Pulse 81 10/09/17 10:42 Resp 17 10/09/17 10:42 BP 120/60 10/09/17 10:42 Pulse Ox 99 10/09/17 10:42 UC Diagnostic Evaluation - Laboratory O2 Sat by Pulse Oximetry: 99 Respiratory Course/Dx - Course Course Of Treatment: Patient will be diagnosed with sinusitis. Patient will be discharged with prescription for augmentin and follow up with PCP. The patient is agreeable with this plan. - Differential Dx/Diagnosis Provider Diagnoses: Frontal and maxillary sinusitis Discharge - Sign-Out/Discharge Documenting (check all that apply): Patient Departure All imaging exams completed and their final reports reviewed: Yes - Discharge Plan Condition: Stable Disposition: HOME Prescriptions: Amoxicillin/Clavulanate TAB* [Augmentin TAB 875*] 875 mg PO BID 14 Days #28 tab Patient Education Materials: Sinusitis (ED) Referrals: Sobia PECK,Destin Lainez [Primary Care Provider] - 1 Week Additional Instructions: Please start taking the medication as prescribed to the pharmacy . Follow up with your primary care doctor in 1 week Patients blood pressure slightly high in Urgent care today , plan follow up with PCP for better control Return to Urgent care / ER if symptoms get worse. - Billing Disposition and Condition Condition: STABLE Disposition: Home - Attestation Statements Document Initiated by Fransico: Yes Documenting Scribe: Debi Albert Provider For Whom Fransico is Documenting (Include Credential): Marisa Tay MD Scribe Attestation: Debi Saab scribed for Marisa Tay MD on 10/09/17 at 1440. Scribe Documentation Reviewed: Yes Provider Attestation: The documentation as recorded by the Debi hennessy accurately reflects the service I personally performed and the decisions made by , Marisa Tay MD
== END 2017-10-09 11:20 | disposition home or self-care (01) ==
LOC: UCEAST 10:21
DX: J32.1 Chronic frontal sinusitis (principal); J32.0 Chronic maxillary sinusitis; E03.9 Hypothyroidism, unspecified; Z88.6 Allergy status to analgesic agent
CPT/HCPCS: 99212; G0463

== ENCOUNTER 2017-11-27 12:31 | Emergency (ER) | payer BC ==
[2017-11-27 12:53] VITALS: BP 113/48
--- NOTE | 2017-11-27 14:16 | UC ---
Respiratory Complaint HPI - HPI Summary HPI Summary: Started getting sick 9 or 10 days ago with stuffy nose, congestion, ST, cough. Had made appt with PCP for 4 days ago, but was feeling so well prior to this she cancelled it. Since then got much worse with facial pain, drainage from nose and eyes, harsh cough, long coughing fits. Hx of poor recovery from respiratory illness. Not currently being treated for CA or any immunosuppression. - History of Current Complaint Chief Complaint: UCRespiratory Stated Complaint: SINUS COMPLAINT Time Seen by Provider: 11/27/17 13:54 Hx Obtained From: Patient Hx Last Menstrual Period: N/A ?: No Onset/Duration: Gradual Onset, Lasting Days Timing: Constant Severity Initially: Mild Severity Currently: Severe Pain Intensity: 0 Character: Cough: Productive Aggravating Factors: Exertion, Deep Breaths, Recumbent Position Alleviating Factors: Bronchodilator Associated Signs And Symptoms: Positive: Chills, Wheezing, URI, Nasal Congestion - Allergies/Home Medications Allergies/Adverse Reactions: Allergies Allergy/AdvReac Type Severity Reaction Status Date / Time NSAIDS (Non-Steroidal Allergy Swelling Verified 11/27/17 12:53 Anti-Inflamma Of Face,Lips,& Throat PMH/Surg Hx/FS Hx/Imm Hx Endocrine History: Hypothyroidism Respiratory History: Asthma Cancer History: Breast Cancer Other Cancer History: CLL Other History Of: Negative For: Hepatitis B, Hepatitis C - Surgical History Surgical History: Yes Surgery Procedure, Year, and Place: tonsilectomy. thyroidectomy. hysterectomy. bladder lift with mesh. nasal reconstruction. mastectomy. left breast mastectomy - Family History Known Family History: Positive: Hypertension, Diabetes - Social History Alcohol Use: Rare Substance Use Type: None Smoking Status (MU): Never Smoked Tobacco Have You Smoked in the Last Year: No - Immunization History Most Recent Influenza Vaccination: none Review of Systems Constitutional: Chills, Fatigue Skin: Negative Eyes: Negative ENT: Sore Throat, Nasal Discharge, Sinus Congestion Respiratory: Shortness Of Breath, Cough Cardiovascular: Negative Gastrointestinal: Negative Genitourinary: Negative Motor: Negative Neurovascular: Negative Musculoskeletal: Negative Neurological: Negative Psychological: Negative Is Patient Immunocompromised?: No All Other Systems Reviewed And Are Negative: Yes Physical Exam Triage Information Reviewed: Yes Appearance: Well-Nourished, Ill-Appearing Vital Signs: Initial Vital Signs Temp 97.9 F 11/27/17 12:49 Pulse 72 11/27/17 12:49 Resp 18 11/27/17 12:49 BP 113/48 11/27/17 12:49 Pulse Ox 98 11/27/17 12:49 Vital Signs Reviewed: Yes Eye Exam: Normal Eyes: Positive: Conjunctiva Clear ENT: Positive: Hearing grossly normal, Pharynx normal, Nasal congestion, Nasal drainage, TMs normal Dental Exam: Normal Neck exam: Normal Neck: Positive: Supple Respiratory: Positive: Respiratory distress - frequent coughing with hard-to- control fits, Rhonchi, Wheezing Cardiovascular Exam: Normal Cardiovascular: Positive: RRR, No Murmur Musculoskeletal Exam: Normal Musculoskeletal: Positive: Strength Intact, ROM Intact, No Edema Neurological Exam: Normal Neurological: Positive: Alert Psychological Exam: Normal Skin Exam: Normal UC Diagnostic Evaluation - Laboratory O2 Sat by Pulse Oximetry: 98 Respiratory Course/Dx - Differential Dx/Diagnosis Differential Diagnosis/HQI/PQRI: Bronchitis, CHF, Exacerbation Of COPD, Lower Resp Infection, Sinusitis Provider Diagnoses: Acute bronchitis. acute bacterial rhinosinusitis Discharge - Sign-Out/Discharge Documenting (check all that apply): Patient Departure All imaging exams completed and their final reports reviewed: No Studies - Discharge Plan Condition: Stable Disposition: HOME Prescriptions: Amoxicillin/Clavulanate TAB* [Augmentin TAB 875*] 875 mg PO BID #14 tab Fluticasone-Salmeterol 250-50* [Advair Diskus 250-50*] 1 puff INH BID #1 diskus Patient Education Materials: Acute Bronchitis (ED), Sinusitis (ED) Referrals: Sobia PECK,Destin Lainez [Primary Care Provider] - 4 Days Additional Instructions: Please call or return if you develop difficulty breathing, fever over 100F, sudden worsening, or failure to improve at all for 4 or more days. - Billing Disposition and Condition Condition: STABLE Disposition: Home
== END 2017-11-27 14:15 | disposition home or self-care (01) ==
LOC: UCEAST 12:31
DX: J20.9 Acute bronchitis, unspecified (principal); J01.90 Acute sinusitis, unspecified; Z88.6 Allergy status to analgesic agent
CPT/HCPCS: 99212; G0463

== ENCOUNTER 2019-04-08 18:58 | Emergency (ER) | payer BC ==
--- OUTSIDE RECORDS SUMMARY | 2019-04-08 19:05 | XMS REPORT | Continuity of Care Document ---
:1955 Author Organization 0001 - S [facility] Address [address] [place] [address] Phone Care Team Providers Name Role Phone ROB HUFFMAN MD Unavailable Unavailable Allergies, Adverse Reactions, Alerts Substance Reaction Status chlorpheniramine Active ibuprofen Active PSEUDOEPHEDRINE HCL Active NAPROXEN SODIUM Active meloxicam Active aspirin Unknown Active WARNIN allergy(ies) could not be collected because the type is not supported. [facility] for further details. Medications Medication Instructions Dosage Effective Dates Status Comments (start - stop) Plavix 75 mg tablet take 1 tablet by 75 MG - Active ORAL route every day valacyclovir 1 gram take 1 caplet by 1000 MG - Active tablet ORAL route every 8 hours for 10 days Synthroid 150 mcg TAKE 1 TABLET BY - Active tablet MOUTH DAILY ALTERNATING WITH 2 DAYS OF 175MCG Advair Diskus 250 inhale 1 by Oral 1 - Active mcg-50 mcg/dose route 2 times powder for every day inhalation gabapentin 600 mg take 1 tablet by 600 MG - Active tablet ORAL route 3 times every day acyclovir 200 mg take 1 capsule by 200 MG - Active capsule oral route every 24 hours 5 times per day pantoprazole 40 mg take 1 tablet by 40 MG - Active tablet,delayed ORAL route every release day atorvastatin 40 mg take 1 tablet by 40 MG - Active tablet oral route every day fluoxetine 20 mg take 3 capsule by 60 MG - Active capsule ORAL route every day in the morning Flonase Allergy spray 1 - 2 spray 50-100 MCG - Active Relief 50 by intranasal mcg/actuation nasal route every day spray,suspension in each nostril as needed Ventolin HFA 90 inhale 2 puff by 2 puff - Active mcg/actuation Inhalation route aerosol inhaler every 4 - 6 hours as needed EpiPen 0.3 mg/0.3 Take as directed - Active mL injection, auto-injector Synthroid 175 mcg take 1 tablet - Active tablet (175MCG) by oral route, two days alternating with one day of 150mcg. ProAir HFA 90 inhale 2 puff by 2 puff - Active mcg/actuation Inhalation route aerosol inhaler every 4 - 6 hours as needed fluticasone 50 inhale 2 spray by 2 spray - Active mcg/actuation nasal Intranasal route spray,suspension every day in each nostril Centrum Silver Tab Take one tablet by - Active mouth daily Synthroid 175 mcg take 1 tablet - No Longer tablet (175MCG) by oral Active route, two days alternating with one day of 150mcg. Augmentin XR 1,000 take 2 tablet by 2.00 tablet - No Longer mg-62.5 mg oral route every Active tablet,extended 12 hours at the release start of a meal valacyclovir 1 gram take 1 caplet by 1000 MG - No Longer tablet ORAL route every Active 8 hours for 10 days Plavix 75 mg tablet take 1 tablet by 75 MG - No Longer ORAL route every Active day Synthroid 175 mcg take 1 tablet - No Longer tablet (175MCG) by oral Active route, two days alternating with one day of 150mcg. Tylenol 325 mg Tab prn - No Longer Active Problems Condition Effective Dates (start - stop) Clinical Status Essential (primary) hypertension Mixed hyperlipidemia TIA (transient ischemic attack) Cigarette nicotine dependence without complication History of loop recorder Type 2 diabetes mellitus without Fe-24-2020 - complications Prsnl hx of TIA (TIA), and cereb infrc - w/o resid deficits Acute non-recurrent maxillary sinusitis Elevated liver enzymes Acquired hypothyroidism Mixed dyslipidemia Screening for viral disease Acute maxillary sinusitis, recurrence not specified Abscess Elevated liver enzymes Lyme disease Dark urine Right upper quadrant pain Erythema migrans (Lyme disease) [place] infected Acute pharyngitis, unspecified Toe infection Acute conjunctivitis of both eyes, unspecified acute conjunctivitis type Sinus congestion Moderate persistent asthmatic bronchitis with acute exacerbation Cat bite of left hand, initial encounter ^ Bitten by cat, initial encounter Acute bronchitis, unspecified organism TIA (transient ischemic attack) Lymphadenitis Mixed hyperlipidemia Palpitations Prsnl hx of TIA (TIA), and cereb infrc - w/o resid deficits Lymph nodes enlarged TIA (transient ischemic attack) Palpitations Chronic lymphocytic leukemia of B-cell type in remission Encounter for screening mammogram for breast cancer Vascular bruit Mixed hyperlipidemia Postprocedural hypothyroidism Unspecified sensorineural hearing loss Chronic lymphocytic leukemia of B-cell type in remission Bruit Mixed hyperlipidemia Hypothyroidism, unspecified Tick bite, subsequent encounter Aching headache Neck pain Acute left-sided low back pain without sciatica Acute conjunctivitis of right eye, unspecified acute conjunctivitis type Encounter for screening mammogram for high-risk patient Hives Encounter for screening mammogram for high-risk patient Postprocedural hypothyroidism Chronic lymphocytic leukemia of B-cell type in remission Acute bronchitis, unspecified Sciatica associated with disorder of lumbosacral spine, left Sciatica associated with disorder of lumbar spine, left Sciatica associated with disorder of lumbar spine, left Acute maxillary sinusitis, recurrence not specified Acute maxillary sinusitis, recurrence not specified Neop, bng, large intestine - Family History, Other Digestive - Disorders Bronchitis Hypothyroidism - Mixed Hyperlipidemia Depression Hypothyroidism, postsurgical Mixed Hyperlipidemia Therapeutic Drug Monitoring Zoster ocular disease Zoster ocular disease Asthma, intrinsic w/o status asthmaticus Foot pain Acute upper respiratory infection Bronchitis Hearing loss Upper Respiratory Infection, Acute Mixed Hyperlipidemia Vitamin D deficiency Follow-up examination, after surgery NOS Sensorineural Hearing Loss, NOS Neop, bng, scalp/skin, neck Sprain/strain, hip/thigh NEC Neop, UB, skin Muscle strain of gluteal region Mixed Hyperlipidemia Hypothyroidism, postsurgical Mixed Hyperlipidemia - Hypothyroidism, postsurgical - Mixed Hyperlipidemia Hypothyroidism, postsurgical - Mixed Hyperlipidemia - Upper Respiratory Infection, Acute Mixed Hyperlipidemia Hypothyroidism, postsurgical Upper Respiratory Infection, Acute - Mixed Hyperlipidemia - Hypothyroidism, postsurgical - Therapeutic Drug Monitoring Bronchitis, Acute Sinusitis, Acute Depression Leukemia, chronic lymphoid, in remission Hypothyroidism, postsurgical - Hyperlipidemia, mixed - Asthma, intrinsic w/o status - asthmaticus Migraine, classical w/o intractable - migraine Sinusitis, acute NOS - Acute Sinusitis, acute NOS - Acute Upper Respiratory Infection, Acute Acute Conjunctivitis NOS Acute Sinusitis, Acute Acute Disturbance, visual NEC Acute Disturbance, visual NEC Acute Sinusitis, acute maxillary Acute Leukemia, chronic lymphoid, in Acute remission Reflux, esophageal Acute Panic disorder w/o agroaphobia Acute 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, 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, 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, Asymptomatic acute NOS Therapeutic Drug Monitoring Chronic Leukemia, chronic lymphoid, in Chronic remission Failure, postablative ovarian Chronic Incontinence, mixed, urge/stress Chronic Asthma, intrinsic w/o status Chronic asthmaticus Incontinence, mixed, urge/stress Chronic Bronchitis, acute Chronic Leukemia, chronic lymphoid, in Chronic remission Disorder, depressive NEC Fair control Asthma, intrinsic w/o status Good control asthmaticus Disorder, depressive NEC Good control Hypothyroidism, postsurgical Good control Bronchitis, Acute Improved Bronchitis, Acute Resolved Sinusitis, acute NOS - Subacute Sciatica Subacute Chest pain, unspecified type Symptomatic Chest pain, unspecified type Symptomatic Procedures Procedure Date Procedure Unknown Results Test Name Date and Time Measure Units Reference Range Abnormal Flag Status Comments Unknown Encounters Encounter Practice Location Reason(s) Diagnoses Date Provider Providers Description For Visit Copied on Encounter 4416 - S Primary b- [facility] [employer], [facility] [address], [place], [address], [facility], tel: [phone] tel: [phone] - [facility] WS Essential (primary) b- [employer], [facility]. [address] hyperlipidemiaTIA 0 30 Hernán (transient ischemic [address], attack)Cigarette [facility] nicotine dependence Suite [place], [place], without 250, [address], [place] complicationHistory Arthur tel: of [place], [place], [id number] recorderType 2 [address]. diabetes mellitus tel: without [phone] complicationsPrsnl hx of TIA (TIA), and cereb infrc w/o resid deficits 0001 - S Primary Feb- [facility], [facility] ROB. [address] [place] 0 [facility] Hernán [address] [place] [address], [place], [address], [place], tel: [phone] tel: [phone] 0001 - S [facility] ROB. [address] [place] 0 [facility] PC Hernán [address] [place] [address], [place], [address], [place], tel: [phone] tel: [phone] 0001 - S [facility] Feb- [facility], [facility] ROB. [address] [place] 0 [facility] PC Hernán [address] [place] [address], [place], [address], [place], tel: [phone] tel: [phone] 0001 - [facility] Primary Acute non-recurrent Jan- [facility], [facility] maxillary ROB. [address] [place] sinusitisElevated 9 [facility] PC Hernán liver [address] [place] [address], enzymesAcquired [facility] hypothyroidismMixed [place], [place], dyslipidemiaScreeni [place], [address], [place] ng for viral [place], tel: disease [phone]. [phone] tel: [phone] 0001 - S Primary Dec-0 [facility], [facility] ROB. [address] [place] 9 [facility] PC Hernán [address] [place] [address], [place], [place], [address], [place], tel: [phone] tel: [phone] 0001 - [facility] Primary Nov-2 [facility], [facility] 0 ROB. [address] [place] [address], [place], [address], [place], tel:+ [phone] tel: [phone] 0001 - [facility] Primary Nov-1 [facility], [facility] ROB. [address] [place] [address], [place], [address], [place], tel: [phone] tel: [phone] 0001 - [facility] Primary Nov-0 [facility], [facility] ROB. [address] [place] [address], [place], [address], [place], tel: [phone] tel: [phone] 0001 - [facility] Primary Acute maxillary Oct-2 [facility], [facility] sinusitis, ROB. [address] [place] recurrence not [address], [place], [address], [place], tel:+ [phone] tel: [phone] 0001 - [facility] Primary Oct-2 [facility], [facility] ROB. [address] [place] [address], [place], [address], [place], tel:+ [phone] tel: [phone] 0001 - [facility] Primary Oct-0 SKIFF [facility], [facility] ROB. [address] [place] [address], [place], [address], [place], tel:+ [phone] tel:+ [phone] 0001 - [facility] Walk-In Abscess Aug-2 CALLE [facility], Center RUPERTO. [address] [place] 9 [address] [facility], [place], [address]. [address], [place] tel: tel: [phone] 0001 - S Primary Elevated liver Sep- SK[facility], [facility] [place] enzymesLyme disease ROB. [address] [place] 9 [facility] PC [address], [place], [address], [place], tel: [phone] tel: [phone] 0001 - S Walk-In Dark urineRight CARVER [facility], Center upper quadrant 2 BEATA. 57 [place] painErythema 9 [address] [place] migrans (Lyme [facility], disease) [place], [place], [place], [address], [place], tel: [phone] tel: [phone] 0001 - S Primary [place] infected [facility], [facility] ROB. 57 [place] [address], [place], [address], [place], tel: [phone] tel: [phone] 0001 - S Walk-In Acute pharyngitis, CARVER [facility], Center unspecifiedToe [place]. [address] [place] infection 9 [address] [place], [place], [place], [address], [place], tel: [phone] tel: [phone] 0001 - S Walk-In Acute STEF HO. [facility], Center conjunctivitis of [id number] [place] both eyes, Sameer Hernán unspecified acute [facility] conjunctivitis [facility] typeSinus [place], [place], [place], [place], [address], [place] [address]. tel: tel: [phone] 0001 - S Primary Feb-1 [facility], [facility] [place] ROB. [place] 9 [facility] PC Hernán [address] [place] [address], [place], [place], [address], [place], tel: [phone] tel: [phone] 0001 - [facility] Primary Bryan-3 [facility], [facility] [place] ROB. [place] 9 [facility] PC Hernán [address] [place] [address], [place], [place], [address], [place], tel: [phone] tel: [phone] 0001 - [facility] Primary Moderate persistent Feb- [facility], [facility] [place] asthmatic ROB. [place] bronchitis with 9 [facility] PC Hernán [address], [facility] bite of left hand, [place], [place], initial encounter [place], [address], [place] ^Bitten by cat, [place], tel: initial encounter [phone]. [phone] tel: [phone] 0001 - [facility] Primary Bryan-0 SKIFF [facility], [facility] [place] ROB. [place] 9 [facility] PC Hernán [address] [place] [address], [place], [address], [place], tel: [phone] tel: [phone] 0001 - [facility] Primary Acute bronchitis, Nov- SKIFF [facility], [facility] [place] unspecified ROB. [place] organism 8 [facility] PC Hernán [address] [place] [address], [place], [place], [address], [place], tel: [phone] tel: [phone] 0001 - [facility] Neuro TIA (transient Sep- MUSTAFA [facility], Inter Surg ischemic attack) CARMEN. 30 8 [facility], [place], [address], [place] [address], [place], [place], tel: [phone] tel: [phone] 0001 - [facility] Primary Lymphadenitis Sep- [facility] Inc, [facility] ROB. [place] 8 S PC Hernán [address] [place], [place], [place], [address], [place], tel: [phone]. [phone] tel: [phone] 0001 - [facility] WS Chest pain, Sep- AHMED S Inc, Cardiology unspecified BOUCHRA. typeMixed 8 S 30 Hernán hyperlipidemiaPalpi [facility], tationsPrsnl hx of [facility] TIA (TIA), and [place], [place], cereb infrc w/o 250, [address], [place] [facility] tel: [place], [place], [phone]. tel: [phone] 0001 - [facility] Primary Lymph nodes Sep- [facility] Inc, [facility] enlargedTIA ROB. [place] (transient ischemic 8 [facility] attack)Palpitations 119 [facility], Chronic lymphocytic [facility] leukemia of B-cell [place], [place], type in [place], [address], [place] remissionEnclos [facility] [place], tel: for screening [phone]. [phone] mammogram for tel: breast cancer [phone] 0001 - S Primary Sep- [employer] Inc, [facility] CARE. . [place] 8 [place], [address], [place] tel: [phone] 0001 - [facility] Primary Chest pain, Aug- RISING S Inc, Care [place] unspecified type SYLVAIN. 8 [address] [facility], [place], [place], [address]. [address], [place] tel: tel: [phone] 0001 - S Primary Vascular bruit Dec- [facility] Inc, [facility] ROB. [place] 7 S PC Hernán [address] [place], [place], [place], [address], [place], tel: [phone] tel: [phone] 0001 - S Primary Mixed Dec-2 [facility] Inc, [facility] hyperlipidemiaPostp 1- ROB. [address] [place] rocedural 7 S PC Hernán hypothyroidismUnspe 119 [facility], cified [facility] sensorineural [place], [place], hearing lossChronic [place], [address], [place] lymphocytic [place], tel: leukemia of B-cell [phone]. [phone] type in tel: remissionBruit [phone] 0001 - S Primary Mixed June-3 [facility], [facility] hyperlipidemiaHypot 0- ROB. [address] [place] hyroidism, 7 [facility] PC Hernán unspecified 119 [facility], [place], [place], [place], [address], [place], tel: [phone]. [phone] tel: [phone] 0001 - [facility] Primary Tick bite, June- [facility], [facility] [place] subsequent ROB. 33 [place] encounterAching 7 S PC Hernán headacheNeck [address] [place] [address], painAcute [facility] left-sided low back [place], [place], pain without [place], [address], [place] sciatica [place], tel: [phone] tel: [phone] 0001 - [facility] Primary Acute Aug- [facility] conjunctivitis of [facility]. 33 [place] right eye, 6 [facility] PC Hernán unspecified acute 119 [facility], conjunctivitis type [place], [place], [place], [address], [place], tel: [phone]. [phone] tel: [phone] 0001 - Encounter for S [email or web address], screening mammogram 0 for high-risk 6 Hernán patient [place], [place], [address], [place] tel: [phone] 0001 - [facility] Primary HivesEncounter for [facility], [facility] screening mammogram ROB. 33 [place] for high-risk 6 [facility] PC Hernán patientPostprocedur 119 [facility], al [facility] hypothyroidismChron [place], [place], ic lymphocytic [place], [address], [place] leukemia of B-cell [place], tel: type in remission [phone]. [phone] tel: [phone] 0001 - S Primary Acute bronchitis, Feb-0 [facility], [facility] unspecified 4-201 ROB. [address] [place] 6 [facility] DANE Erickson [address] [place] [address], [place], [address], [place], tel: [phone]. [phone] tel: [phone] 0001 - [facility] Primary Sciatica associated Bryan-2 [facility]IFF [facility], [facility] with disorder of 2-201 ROB. [address] [place] lumbosacral spine, 6 [facility] Hernán left [address] [place] [address], [place], [address], [place], tel: [phone]. [phone] tel: [phone] 0001 - [facility] Primary Sciatica associated Bryan-0 SKIFF [facility], [facility] with disorder of 8-201 ROB. [address] [place] lumbar spine, left 6 [facility] PC Hernán [address] [place] [address], [place], [address], [place], tel: [phone]. [phone] tel: [phone] 0001 - [facility] Primary Sciatica associated Bryan-0 SKIFF [facility], [facility] with disorder of 4-201 ROB. [address] [place] lumbar spine, left 6 [facility] DANE Erickson [address] [place] [address], [place], [address], [place], tel: [phone]. [phone] tel: [phone] 0001 - [facility] Primary Acute maxillary Dec-2 [facility]IFF [facility], [facility] sinusitis, 3-201 ROB. [address] [place] recurrence not 5 [facility] Hernán specified [address] [place] [address], [place], [address], [place], tel: [phone]. [phone] tel: [phone] 0001 - [facility] Primary Acute maxillary Oct-0 EZRA [facility], [facility] [place] sinusitis, 1-201 LAURA. [address]57 recurrence not 5 [address] [place], [place], [place], [address], [place], tel: [phone] tel: [phone] 0001 - [facility] GI Neop, bng, large Sep- MOUNA S Inc, intestineFamily MEGAN. 40 [address]57 History, Other [address] [facility] [address], [place], Floor [address], [place], [place], [place], [address], [place] [address]. tel: tel: [phone] 0001 - S Primary Bronchitis Carloz-0 [facility], [facility] [place] ROB. [place] [address], [place], [address], [facility], tel: [phone]. [phone] tel: [phone] 0001 - S Primary HypothyroidismMixed [facility] Inc, [facility] [place] HyperlipidemiaDepre ROB. [place] ssion [address], [place], [address], [facility], tel: [phone]. [phone] tel: [phone] 0001 - S Primary Hypothyroidism, Feb- [facility], [facility] [place] postsurgicalMixed ROB. [address] HyperlipidemiaThera 5 [facility] peutic Drug [address] [place] [address], [place], [address], [place], tel: [phone]. [phone] tel: [phone] 0001 - S Primary Zoster ocular Sep-1 [facility], [facility] [place] disease 2- ROB. [address] [place] [address], [place], [address], [facility], tel: [phone] tel: [phone] 0001 - S Primary Zoster ocular Sep-0 [facility], [facility] [place] disease 3- ROB. [place] [address] [place] [address], [address], [place], [place], [place], [address], [place], tel: [phone]. [phone] tel: [phone] 0001 - [facility] Primary Aug-2 SKIFF S Inc, [place] 5 ROB. [place] 4 S PC Hernán [address] [place], [place], [place], [address], [place], tel: [phone]. [phone] tel: [phone] 0001 - [facility] Primary Asthma, intrinsic Carloz-0 SKIFF S Inc, [facility] [place] w/o status 2- ROB. [place] asthmaticusFoot 4 [facility] Hernán pain [address] [place] [address], [place], [place], [place], [address], [facility], tel: [phone]. [phone] tel: [phone] 0001 - [facility] Primary Acute upper Mar-2 SKIFF Referring S [facility], [facility] respiratory ROB. Provider: [place] infectionBronchitis 4 [facility] ROB Erickson Hearing loss [address] [place] [address], [address] [place], [place], [facility] [address], [facility], [place], tel: [phone]. [place], [phone]. [phone] tel: tel: [phone] 0001 - [facility] Primary Upper Respiratory Nov-2 SCHECTER Referring S [facility], [facility] [place] Infection, Acute ISAAK. Provider: 3 4417 ISAAKMELISSA Erickson [facility], [place] , [address] [place], [place], [facility], [address], [facility], tel: [address]. [place], [phone]. [phone] tel: tel: [phone] 0001 - [facility] Primary Mixed Sep-0 SKIFF S Inc, [facility] HyperlipidemiaThera 3- ROB. [place] peutic Drug 3 [facility] Hernán MonitoringVitamin D [address] [place] [address], [place], [address], [place], tel: [phone]. [phone] tel: [phone] 0001 - S Follow-up LYNN [facility], ENT/Facial examination, after 0 RANDALL. 30 Plastic surgery 3 [facility], [address], Hearing Loss, NOS 355, [place], [place], [place], [address], [place] [address]. tel: tel: [phone] 0001 - S Neop, bng, LYNN Referring S Inc, ENT/Facial scalp/skin, neck RANDALL. 30 Provider: -[address] [place] [address], [facility], [address], [address], [place], [place], [place], [place], [facility], [address], [place] [address]. [place] tel: tel: [place], [place], [phone] [address]. tel:[phone] 0001 - S Primary Sprain/strain, SKIFF S Inc, [facility] hip/thigh NECNeop, ROB. [place] UB, skin 3 [address], [place], [address], [place], tel: [phone]. [phone] tel: [phone] 0001 - S Primary Muscle strain of [facility] Referring S Inc, [facility] gluteal region ROB. Provider: [place] 3 S PC ROB [address], [facility], [address], [place], [place], [facility] [address], [place], [place], tel: [phone]. [place], [phone]. [phone] tel: tel: [phone] 0001 - S Primary Mixed Sep- SKIFF S Inc, [facility] HyperlipidemiaHypot ROB. 33[address]57 [place] hyroidism, 2 [facility] PC Hernán postsurgicalMixed [address] [place] [address], HyperlipidemiaHypot [facility] [place], postsurgical [place], [address], [place], tel: [phone]. [phone] tel: [phone] 0001 - [facility] Primary Mixed Apr-2 SKIFF [facility], [facility] HyperlipidemiaHypot 5- ROB. 33[address]57 [place] hyroidism, 2 [facility] PC Hernán postsurgicalMixed [address] [place] [address], Hyperlipidemia [place], [place], [address], [place], tel: [phone] tel: [phone] 0001 - [facility] Primary Upper Respiratory Feb-2 [facility], [facility] Infection, ROB. [address] [place] AcuteMixed 2 [facility] PC Hernán HyperlipidemiaHypot [address] [place] [address], hyroidsharp [facility], [facility] postsurgicalUpper [place], [place], [place], [address], [place], [place], tel: AcuteMixed [phone] HyperlipidemiaHypot tel: hyroidism, [phone] postsurgical 0001 - S Primary Therapeutic Drug Mar-3 [facility], [facility] MonitoringBronchiti ROB. 33-57 [place] s, Acute 1 [facility] Hernán [address] [place] [address], [place], [place], [address], [place], tel: [phone] tel: [phone] 0001 - S Primary Bronchitis, Acute Mar-1 [facility], [facility] ROB. 33-57 [place] 1 [facility] Hernán [address] [place] [address], [place], [place], [address], [place], tel: [phone] tel: [phone] 0001 - [facility] Primary Bronchitis, Acute Oct-2 [facility], [facility] ROB. 33-57 [place] 0 [facility] Hernán [address] [place] [address], , [place], [place], [address], [place], tel:[phone] tel: [phone] 0001 - [facility] Primary Upper Respiratory Oct- [facility], [facility] [place] Infection, Acute ROB. Provider: 33-57 [place] 0 [facility] ROB Erickson [address] [place] [address], [facility], [address], [place], [place], [facility] [address], [facility], [place], tel: [phone]. [place], [phone]. [id number] tel: tel: [phone] 0001 - [facility] Primary Conjunctivitis Apr- [facility]I Referring S Inc, [facility] [place] NOSSinusitis, Acute ROB. Provider: 33-57 [place] 0 [facility] ROB Erickson [address] [place] [address], [facility], , [address], [place], [place] [address], [facility], [place], tel: [phone]. [place], [phone]. [id number] tel: tel: [phone] 0001 - [facility] Primary Sinusitis, Feb- [facility] Inc, [facility] [place] AcuteDepression ROB. 3357 [place] 0 [facility] Hernán [address] [place] [address], [place], [facility], [facility], tel: [phone] tel: [phone] 0001 - [facility] Primary Disturbance, visual Bryan-0 [facility] Inc, [facility] NECDisturbance, ROB. 3357 [place] visual NECDisorder, 0 S Hernán [address], NECLeukemia, [facility] chronic lymphoid, [place], in [place], [address], [place], tel: postablative [phone]. [phone] ovarian tel: [phone] 0001 - [facility] Primary Incontinence, Nov- [facility] Inc, [facility] [place] mixed, ROB. 3357 urge/stressAsthma, 8 [facility] Hernán intrinsic w/o [address] [place] [address], [facility] asthmaticusAsthma, [place], intrinsic w/o [place], [address], [place] status [place], tel: asthmaticusDisorder [phone]. [phone] , depressive tel: NECHypothyroidism, [phone] postsurgical 0001 - S Primary Incontinence, Nov-0 SKIFF S Inc, [facility] [place] mixed, urge/stress 4-200 ROB. [address], [facility] [address], [facility], tel: [phone] tel: [phone] 0001 - S Primary Sinusitis, acute Nov- TERESA Referring S Inc, [facility] [place] maxillary 4-200 ELIZABET. Provider: 8 54 [facility], [facility], [place], [address] [place] [address], [address]. [facility] [address], tel: [place], [address]. tel: [phone] tel: [phone] 0001 - [facility] Primary Sinusitis, acute June-3 SKIFF Referring S Inc, [facility] [place] NOS 0-200 ROB. Provider: 57 [place] 8 [facility] ROB Erickson [address] [place] [address], [address], [facility] [address], [facility], tel: [phone]. [place], [phone]. 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 Provider: 57 sites, acute NOS 8 [facility] ROB [place], [address], [facility] [address], [facility], [employer], tel: [phone]. [place], [phone]. [phone] tel: tel: [phone] 0001 - [facility] Primary Sciatica Bryan-2 SK[facility] S Inc, [facility] [place] 2-200 ROB. 3357 8 [facility] Hernán [address] [place] [address], [place], [place], [address], [place], tel: [phone] tel: [phone] 0001 - [facility] Primary Sinusitis, acute Apr-2 SKIFF Referring S Inc, [facility] [place] NOS 3-200 ROB. Provider: 3357 7 [facility] ROB Erickson [address] [place] [address], [address], [place], [place], [place] [address], [place], [place], tel: [phone]. [place], [phone]. [phone] tel: tel: [phone] 0001 - [facility] Primary Bronchitis, Mar-0 SK[facility] S Inc, [facility] [place] acuteLeukemia, 6-200 ROB. 3357 chronic lymphoid, 7 [facility] Hernán in [address] [place] [address], remissionLeukemia, [facility] chronic lymphoid, [place], [place], in remission [place], [address], [place], tel: [phone] tel: [phone] 0001 - [facility] Primary Dec-2 TERESA Referring S Inc, [facility] [place] 6-200 ELIZABET. Provider: 3357 6 54 [facility], [facility], [place], [address] [place], [address]. [place], [address], [place], [address]. tel: [phone] tel: [phone] 0001 - S Primary Nov-0 SKIFF Referring S Inc, [facility] [place] 9-200 ROB. Provider: 3357 6 [facility] ROB Erickson [address] [place] [address], [facility], , [address], [place], [place], [facility] [address], [place], [place], tel: [phone]. [place], [phone]. [phone] tel: tel: [phone] 0001 - [facility] Primary Reflux, esophageal Oct-2 [facility], [facility] [place] 4-200 ROB. 33-57 6 [facility] Hernán [address] [place] [address], [place], [address], [facility], tel: [phone] tel: [phone] - [facility] Primary Leukemia, chronic Nov- [facility] Inc, [facility] [place] lymphoid, in 0-200 ROB. 57 remissionSinusitis, 6 [facility] Hernán acute NOS [address] [place] [address], [place], [address], [facility], tel: [phone] tel: [phone] - [facility] Primary Hypothyroidism, Apr-0 [facility] Inc, [facility] [place] postsurgicalHyperli 3-200 ROB. pidemia, 6 [facility] Hernán mixedAsthma, [address] [place] [address], intrinsic w/o [place], asthmaticusMigraine [place], [facility], , classical w/o [place], tel: intractable [phone]. [phone] migraine tel: [phone] 0001 - [facility] Primary Panic disorder w/o b- [facility], [facility] [place] agroaphobia 6-200 ROB. 57 6 [facility] Hernán [address] [place] [address], [place], [address], [facility], tel: [phone] tel: [phone] - [facility] Primary Apr-0 [facility], [facility] [place] 7-200 LASHONDA. 57 5 54 [facility], [place], [place], [facility] [place] [address]. tel: tel: [phone] Family History Family Member Diagnosis Age At Onset Family history of Depression Father Cancer, pancreatic (Cause Of ) Sister Hypertension Father Sister Hyperlipidemia Family history of Diabetes mellitus Brother Cancer, prostate Mother Sister GERD Sister Migraines Mother heart attack (Cause Of ) Immunizations Vaccine Date Status Comments flu (split) (3 yrs or older) administered Source: New Immunization 0.5 mL IM with preservatives Record Tdap administered Source: New Immunization Record flu (split) (3 yrs or older) administered Source: New Immunization 0.5 mL IM with preservatives Record Influenza virus vaccine administered Note: Abstracted -2004 ; Source: New Immunization Record pneumo (3 yrs or older) (PPV) administered Note: Abstracted -08/2004 ; Source: New Immunization Record Payers Payer name Insurance type Covered democrat ID Authorization(s) Sonal Ramos [id number] Medicare Mc [id number] Social History Type Description Quantity Date Captured Comments Alcohol Use Details Unknown Caffeine Use Details Unknown Tobacco Use Status Unknown Smoking Status Unknown Vital Signs Date / Height Weight BMI Pulse Blood Temperature Respiratory Body Head BMI Time: Rate Pressure Rate Surface Circumference percentile Area Unknown Chief Complaint And Reason For Visit No information Reason For Referral Reason For Referral Unknown Plan Of Care Date Type Action Status Referral Ordered: ordered Pathology (tissue specimen) Referral Ordered: ordered Nuclear Scan Myocardial Perfusion Rest and Stress (must specify Treadmilll /nelson treadmill Appointment date/timeframe: 09/28/2017 Referral Ordered: ordered Referrals: Cardiology. Location: [facility] Cardiology Appointment date/timeframe: 1 Week Referral Referred To: ordered DENIS MAYFIELD MD [address] [facility] [address] [place], [address] [phone] Ordered: Referrals: Hematology/Oncology. DENIS MAYFIELD MD. Follow-up and treat Appointment date/timeframe: 09/15/2017 Referral Ordered: ordered Mammogram, Screening, Unilateral, 2 Views Referral Ordered: ordered MRA, head, w/o contrast Appointment date/timeframe: 01/11/2017 Referral Ordered: ordered U/S Vascular Carotid Artery Duplex bilateral Appointment date/timeframe: 12/31/2016 Referral Ordered: ordered Mammogram, Screening, Unilateral, 2 Views Right breast Referral Ordered: ordered Mammogram, Screening, Bilateral, 2 Views Each Appointment date/timeframe: 06/27/2015 Referral Referred To: ordered [address], [place], [address] [phone] Ordered: VAZQUEZ RANDOLPH. Ophthalmology. Appointment date/timeframe: 10/10/2013 Referral Ordered: ordered Xray Foot complete (Must choose side) Bilateral fore foot Referral Ordered: ordered Hearing Test Complete Appointment date/timeframe: 05/14/2013 Referral Referred To: ordered RANDALL BAILEY S [address] [place], [address] [phone] Ordered: RANDALL BAILEY. Plastic Surgery - Facial. Consult and treat. Appointment date/timeframe: 08/29/2012 Referral Ordered: ordered Screening Mammogram, Bilateral, 2 Views Each Referral Referred To: ordered ADOLFO WINKLER [address] [place], [address] [phone] Ordered: ADOLFO WINKLER. Ophthalmology. Consult and treat. Appointment date/timeframe: 02/13/2009 Appointment ACE SALMON Type Problem Goal Intervention Status Start Date Unknown History Of Present Illness Encounter Date Complaint History Of Present Illness No information Functional Status Encounter Date Functional Assessment Cognitive Assessment Unknown Medications Administered Medication Instructions Dosage Effective Dates (start - stop) Status Comments Drug Treatment Unknown Instructions Date Instruction Additional Information Blood pressure well controlled. Related to Essential (primary) Maintain low sodium diet including hypertension minimizing canned or prepared meals, adding salt to food, and eating at restaurants, especially fast food restaurants. Please remain abstinent from tobacco. Related to Cigarette nicotine dependence without complication Continue statin. Related to Mixed hyperlipidemia Wll recheck liver enzymes Related to Elevated liver enzymes Will recheck thyroid funcrtion Related to Acquired hypothyroidism Drink plenty of fluids and start the Related to Acute non- recurrent augmentin maxillary sinusitis Risks and benefits of new medication Related to Acute maxillary discussed. Start the augmentin. sinusitis, recurrence not specified continue the advair and vetolin. take antibiotic as indicated with food Related to Abscess to prevent upset stomachsupplement diet with yogurt or acidophilus warm moist compress 10-15 minutes 3 times per day for the next week. keep area clean and generally dry. Wash with plain soap and water. If worsening swelling, discharge from wound, or a red streak extending up, then return for recheck.Followup with your primary doctor within 5 days for recheck. Thank you for choosing the [facility] Walk In. We hope that you will be feeling better soon.Any condition can change and some diseases may worsen despite proper treatment. Other problems may begin with vague or unusual symptoms and only over time will the problem become more clear, making it possible to arrive at the correct diagnosis. Your visit today is not a substitute for, or an effort to provide complete medical care. In most cases, you should let your primary care doctor check you again. Tell your doctor about any new or lasting problems. If you do not have a primary care provider, you have been given a list today of local providers who are accepting new patients. All x-rays are interpreted by a radiologist, usually within 48 hours. If there is any important difference between the radiologist's interpretation and what you were told today by the provider, you will be notified. If you had cultures done today, results will be available in 72 hours, depending on specimen. Appropriately treated with Related to Lyme disease doxycycline,. Arrangements were made for her to go Related to Elevated liver enzymes to [facility] for testing a=nd possibole treatment. Doxycycline 2x/day x 21 daysTake Related to Erythema migrans ( Lyme Centrum Silver and calcium 2 hours disease) before or 4 hours after taking the doxycycline (Take doxy around lunch time and before bed*)Start antibiotic as belowtake otc probiotics. be sure to over up and use sunscreen when outdoors due to potential sun sensitivity from doxycycline. In the future please wear long sleeves and pants and use repellant containing DEET. Check for ticks after being outdoors.Get lots of rest. Maintain good clear fluid intake to stay well hydrated. Please follow-up with your primary care provider within 2 weeks for recheck. Risks and benefits of new medication discussed. Start cephalexin, on three times Related to [place] infected daily. use a donut cusion around the corn Rapid strep negativeHot tea with Related to Acute pharyngitis, honeyGargle with warm salt unspecified waterChloraseptic sprayTry using Mucinex to clear some of the mucus out as well. Keflex 3x/day x7 daysWarm soaks daily. Related to Toe infection Wash with plain soap and water. If worsening swelling, discharge from wound, or a fever, then return for further evaluationKeep area covered with dressing, change dressing daily. Followup with your primary doctor within 7 days for recheck. Maintain adequate restKeep area clean Related to Acute conjunctivitis of Do not rub, itch or irritate areawash both eyes, unspecified acute hands frequentlyFollow up if symptoms conjunctivitis type worsen/persistIf changes in vision noted, please see eye doctor immediately Maintain adequate restDrink plenty of Related to Sinus congestion fluids May use Tylenol/Motrin for body aches, fever or pain/discomfortSalt water gurgles and lozenges may reduce throat irritation/drynessWarm moist air from steam in the shower or a vaporizer can help soothe oral and nasal passagesTake medication as prescribedFollow up if symptoms persist or worsenIf severe shortness of breath or trouble breathing arise, please go to the ER Risks and benefits of new medication discussed. Patient verbalized understanding Use the ventolin inhlaler four times Related to Moderate persistent each day. Drink plenty if fluids . asthmatic bronchitis with acute Stay warm./ exacerbation Start augmentin. Related to Bitten by cat, initial encounter Start the azithromycin , use an Related to Acute bronchitis, expectorant, use the ventolin every unspecified organism four hours as needed. Avoid rubbing the bump. Call if it Related to Lymphadenitis grows in size, becomes more painful, or you develope other symptoms Like fever or chills. Complaining of palpitations with near Related to Palpitations syncopal episode. She was diagnosed with TIA. Echo and Holter unremarkable. I will schedule her for implantable loop recorder 62-year-old complaining of chest pain Related to Chest pain, unspecified in the left upper side and left type shoulder with tingling and numbness. A mild to moderate intensity sometimes pressure heavy sensation like quality without radiation nonpleuritic nonreproducible associated with palpitations. She had an echocardiogram done which was normal. She was diagnosed with TIA and was started on atorvastatin and Plavix she comes in today occasionally she gets palpitations lightheadedness fatigue weakness low energy and left shoulder pain sometimes at rest sometimes with activity sharp sometimes pressure heavy sensation in the epigastric area no relationship with activity. I will schedule her for exercise Cardiolite stress test History of hyperlipidemia on Related to Mixed hyperlipidemia atorvastatin. Continue same Oscar ask Ddr. Mayfield to see her Related to Chronic lymphocytic within the next week. leukemia of B-cell type in remission I seth first like to have Dr. Mayfield Related to Lymph nodes enlarged follow up with her efore we do further evaluation Will refer to cardiology . Related to Palpitations Will continue derrick plavix. Will follow Related to TIA (transient ischemic up with Dr. Mustafa. will follow up attack) with [facility] issues below. EKG with NSR, confirmed by Dr. Stewart, Related to Chest pain, unspecified Due to patients symptoms, gender, i type feel that patient needs to have further evaluation done in the ER. Patient is agreeable to this and will go by Ambulance. COBRA paperwork is completed. Patient with allergy to Aspirin causes hives and swollen tongue so unable to give this for prophalysis Continues to follow with Dr. Mayfield. Related to Chronic lymphocytic leukemia of B-cell type in remission Continue derrick levothyroxine. Will have Related to Postprocedural labs chexked today hypothyroidism Continue the atorvastatin Related to Mixed hyperlipidemia Continue the doxycycline. Call if new Related to Acute left- sided low symptoms develope back pain without sciatica Will retest for Lyme and also for Related to Tick bite, subsequent babesiosis. encounter Stopr the current eyedrop Related to Acute conjunctivitis of (trimethoprim ) and start the right eye, unspecified acute ciprofloxacin eye drop. conjunctivitis type May use hydroxyzine but be careful Related to Hives about possible sedation. Try to increase exercise. May use noxema on the areas that itch.. Have the blood tests done. Take three more days of dexamethasone, Related to Acute bronchitis, five more days of amoxicillin unspecified clavulanate. Call if it continues to worsen. Continue with the extension exercises. Related to Sciatica associated with Start doing more core strengthening disorder of lumbosacral spine, left exercises, to strengthen the abdomen and suppor the back. Use the cyclobenzaprine and oxycodone Related to Sciatica associated with as needed only. Continue with the disorder of lumbar spine, left Dalia exercises. avoid heavy lifting. follow upin two weeks. Call if symptoms worsen. Start the dexamethasone, and use the Related to Sciatica associated with percocet and cyclcobenzaprine as disorder of lumbar spine, left needed. Look up Dalia exercises on line for us to discuss later. Start the azithromycin.Drink plenty of Related to Acute maxillary fluids .use an expectorant. sinusitis, recurrence not specified Augmentin 875/125 mg 1 tablet twice Related to Acute maxillary daily for 10 days, take with food. sinusitis, recurrence not specified Eat 1 cup of yogurt daily. Mucinex 600 mg 1 tablet twice daily. Flonase 50 mcg 2 sprays in each nostril once daily, instructed on proper technique. Increase rest and fluids. May use Tylenol or Ibuprofen as needed for discomfort or fever. Follow up in 2 weeks if not improved or sooner if needed. Start azithromycin. Drink plenty of Related to Bronchitis fluids, rest. Will recheck lipid profile today. Related to Mixed Hyperlipidemia Continue atorvastatin. Continue current dose of thyroid and Related to Hypothyroidism follow up on labs. Continue fluoxetine. Related to Depression Complete valtrex. 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 Report on effectiveness by phone. Start valacyclovir. 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 Use the Qvar twice a day untill there Related to Asthma, intrinsic w/o is no cough or wheeze. Continue to use status asthmaticus the albuterol (proventil nor proair) as needed up to every four hours. Call if the sputum becomes colored. Rember to rinse out the mouth after using Qvar. Also, take the prednisone over the next two days to speed the improvement.
--- OUTSIDE RECORDS SUMMARY | 2019-04-08 19:06 | XMS REPORT | Continuity of Care Document ---
:1955 Author Organization 0001 - S [facility] Address [address] [place] [address] Phone Care Team Providers Name Role Phone ROB HUFFMAN MD Unavailable Unavailable Allergies, Adverse Reactions, Alerts Substance Reaction Status chlorpheniramine Active ibuprofen Active PSEUDOEPHEDRINE HCL Active NAPROXEN SODIUM Active meloxicam Active aspirin Unknown Active WARNIN allergy(ies) could not be collected because the type is not supported. Please contact [facility] for further details. Medications Medication Instructions [...] upper quadrant pain Erythema migrans (Lyme disease) Rowena infected Acute pharyngitis, unspecified Toe infection Acute [...] disorder w/o agroaphobia Acute Infection, up respirat, clay thrower sites, Asymptomatic acute NOS Therapeutic Drug Monitoring [...] Providers Description For Visit Copied on Encounter 2019 - S Primary b- [facility] [employer], [facility] [place] [address], [place], [address], [facility], tel: [phone] tel: [phone] 2019 - [facility] Essential (primary) b- Proactive Comfort, [facility]. 33-57 hyperlipidemiaTIA 0 30 Hernán (transient ischemic [address], attack)Cigarette [facility] nicotine dependence [place], [place], without 250, [address], [place] complicationHistory [place] tel: of [place], [place], [id number] recorderType 2 [address]. diabetes mellitus tel: without [phone] complicationsPrsnl hx of TIA (TIA), and cereb infrc w/o resid deficits 0001 - [facility] Primary SKIFF S Inc, [facility] ROB. 33-57 [place] 0 [facility] PC Hernán [address] [place] [address], [place], [place], [address], [place], tel: [phone]. [phone] tel: [phone] 0001 - [facility] Primary [facility], [facility] ROB. 33-[address] [place] [address], [place], [address], [place], tel: [phone] tel: [phone] 2019 - [facility] Medical READLING S Inc, Oncology DENIS. 33[address], [place], [place], [place], 100, [address], [place] tel: [place], [place], [phone]. tel: [phone] 0001 - [facility] Primary [facility] ROB. 33-57 [place] 0 [facility] PC Hernán [address] [place] [address], [place], [place], [place], [address], [place], tel: [phone]. [phone] tel: [phone] 0001 - [facility] Primary Acute non-recurrent [facility] Inc, [facility] maxillary ROB. 33-57 Jameson sinusitisElevated 9 [facility] PC Hernán liver 119 [facility], enzymesAcquired [facility] hypothyroidismMixed [place], dyslipidemiaScreeni [place], [address], [place] ng for viral [place], tel: disease [phone]. [phone] tel: [phone] 0001 - [facility] Primary Dec-0 SKIFF [facility] Inc, [facility] 6 ROB. 33-[address] [place] [address], [place], [address], [place], tel: [phone]. [phone] tel: [phone] 0001 - [facility] Primary Nov-2 SKIFF [facility] Inc, [facility] 0 ROB. 33-57 [place] [address], [place], [address], [place], tel: [phone]. [phone] tel: [phone] 0001 - [facility] Primary Nov-1 SKIFF [facility] Inc, [facility] ROB. 33-57 [place] [address], [place], [address], [place], tel: [phone]. [phone] tel: [phone] 0001 - [facility] Primary Nov-0 SKIFF [facility] Inc, [facility] ROB. 33-[address] [place] [address], [place], [address], [place], tel: [phone]. [phone] tel: [phone] 0001 - [facility] Primary Acute maxillary Oct-2 SKIFF [facility] Inc, [facility] sinusitis, ROB. 33-57 [place] recurrence not [address], [place], [address], [place], tel: [phone]. [phone] tel: [phone] 0001 - [facility] Primary Oct-2 SKIFF [facility] Inc, [facility] ROB. 33-57 [place] [address], [place], [address], [place], tel: [phone]. [phone] tel: [phone] 0001 - [facility] Primary Oct-0 SKIFF [facility] Inc, [facility] ROB. 33-[address] [place] [address], [place], [address], [place], tel:+ [phone]. [phone] tel: [phone] 0001 - S Walk-In Abscess Sep-2 ACLLE S Inc, Center 6 RUPERTO. 57 Sameer 9 [address] [facility], [place], [address]. [address], [place] tel:+ tel: [phone] 0001 - S Primary Elevated liver Sep-0 SKIGetaround S [facility], [facility] enzymesLyme disease ROB. 33 [place] [address], [place], [address], [place], tel: [phone]. [phone] tel: [phone] 0001 - S Walk-In Dark urineRight Sep- CARSofGenie S [facility], Center upper quadrant BEATA. Sameer painErythema 9 [address] migrans (Lyme [address], disease) [place], [place], [place], [address], [place], tel:+ [phone]. [phone] tel: [phone] 0001 - S Primary Rowena infected Jul- Evolva S [facility], [facility] ROB. [address], [place], [address], [place], tel:+ [phone]. [phone] tel: [phone] 0001 - S Walk-In Acute pharyngitis, CARVER [employer] Inc, Center unspecifiedToe BEATA. 3357 [place] infection 9 4417 [facility], [place], [place], [place], [address], [place], tel:+ [phone]. [phone] tel:[phone] 0001 - S Walk-In Acute STEF HO. S Inc, Center conjunctivitis of [facility] 33-57 Sameer both eyes, 9 Sameer Hernán unspecified acute [facility], conjunctivitis [facility] typeSinus [place], [place], [place], [place], [address], [place] [address]. tel: tel: [phone] 0001 - [facility] Primary Mar- SKIFF [facility] Inc, [facility] ROB. [place] 9 [facility] PC Hernán [address] [place] [address], [place], [address], [place], tel: [phone]. [phone] tel: [phone] 0001 - [facility] Primary Feb-3 SKIFF [facility] Inc, [facility] ROB. 3357 [place] 9 [facility] PC Hernán [address] [place] [address], [place], [place], [place], [address], [place], tel: [phone]. [phone] tel: [phone] 0001 - [facility] Primary Moderate persistent Feb- SKIFF [facility] Inc, [facility] asthmatic ROB. [place] bronchitis with 9 [facility] PC Hernán acute [address] [place] [address] bite of left hand, [place], [place], initial encounter [place], [address], [place] ^Bitten by cat, [place], tel: initial encounter [phone]. [phone] tel: [phone] 0001 - [facility] Primary Bryan-0 SKIFF [facility] Inc, [facility] ROB. [place] 9 [facility] PC Hernán [address] [place] [address], [place], [address], [place], tel: [phone]. [phone] tel: [phone] 0001 - [facility] Primary Acute bronchitis, SKIFF [facility] Inc, [facility] unspecified ROB. 3357 [place] organism 8 [facility] PC Hernán [address] [place] [address], [place], [place], [address], [place], tel: [phone]. [phone] tel: [phone] 0001 - [facility] Neuro TIA (transient MUSTAFA [facility] Inc, Inter Surg ischemic attack) CARMEN. 30 [address] [facility], Street, [facility] 400, [place], [place] [address], [place], [place], tel: [phone]. [phone] tel: [phone] 0001 - S Primary Lymphadenitis Sep- SKIFF S Inc, [facility] ROB. [place] 8 S PC Hernán [address] [facility] [address], [place], [place], [address], [facility], tel: [phone]. [phone] tel: [phone] 0001 - [facility] WS Chest pain, Sep-0 AHMED S Inc, Cardiology unspecified BOUCHRA. typeMixed 8 S [address] hyperlipidemiaPalpi [facility], tationsPrsnl hx of [facility] TIA (TIA), and [place], [place], cereb infrc w/o 250, [address], [place] [facility] tel: [place], [place], [phone]. tel: [phone] 0001 - S Primary Lymph nodes Sep-0 [facility] [employer] Inc, [facility] enlargedTIA ROB. 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 . [place] 8 [facility], [place], [address], [place] tel: [phone] 0001 - S Primary Chest pain, Aug- RISING [facility] Inc, Care [place] unspecified type SYLVAIN. 8 [address] [facility], Street, [place], [address]. [address], [place] tel: tel: [phone] 0001 - S Primary Vascular bruit Dec- SKIFF S Inc, [facility] ROB. 33 [place] 7 [facility] PC Hernán [address] [place] [address], [place], [place], [address], [place], tel: [phone]. [phone] tel: [phone] 0001 - S Primary Mixed [facility] Inc, [facility] hyperlipidemiaPostp ROB. 33 [place] rocedural 7 [facility] PC Hernán hypothyroidismUnspe 119 [facility], cified [facility] sensorineural [place], [place], hearing lossChronic [place], [address], [place] lymphocytic [place], tel: leukemia of B-cell [phone]. [phone] type in tel: remissionBruit [phone] 0001 - S Primary Mixed SKIFF [facility] Inc, [facility] hyperlipidemiaHypot ROB. 33 [place] hyroidism, 7 [facility] PC Hernán unspecified [address] [place] [address], [place], [place], [place], [address], [place], tel: [phone]. [phone] tel: [phone] 0001 - S Primary Tick bite, [facility] Inc, [facility] subsequent ROB. 33 [place] encounterAching 7 [facility] PC Hernán headacheNeck [address] [place] [address], painAcute [facility] left-sided low back [place], [place], pain without [place], [address], [place] sciatica [place], tel: [phone]. [phone] tel: [phone] 0001 - S Primary Acute [facility] Inc, [facility] conjunctivitis of ROB. [place] right eye, 6 [facility] PC Hernán unspecified acute [address] [place] [address], conjunctivitis type [place], [place], [place], [address], [place], tel: [phone]. [phone] tel: [phone] 0001 - Encounter for [facility] Inc, screening mammogram for high-risk 6 Hernán [place], [address], [place] tel: [phone] 0001 - [facility] Primary HivesEncounter for [facility] Inc, [facility] screening mammogram 8-201 ROB. 33-57 [place] for high-risk 6 [facility] DANE Erickson patientPostprocedur 119 [facility], [facility] hypothyroidismChron [place], [place], ic lymphocytic [place], [address], [place] leukemia of B-cell [place], tel: type in remission [phone]. [phone] tel: [phone] 0001 - S Primary Acute bronchitis, Feb- [facility] Inc, [facility] unspecified 4-201 ROB. 33-57 [place] 6 [facility] DANE Erickson [address] [place] [address], [place], [address], [place], tel: [phone]. [phone] tel: [phone] 0001 - S Primary Sciatica associated [facility] Inc, [facility] with disorder of 2-201 ROB. 33-57 [place] lumbosacral spine, 6 [facility] DANE Erickson left [address] [place] [address], [place], [address], [place], tel: [phone]. [phone] tel: [phone] 0001 - S Primary Sciatica associated [facility] Inc, [facility] with disorder of 8-201 ROB. 33-57 [place] lumbar spine, left 6 [facility] DANE Erickson [address] [place] [address], [place], [address], [place], tel: [phone]. [phone] tel: [phone] 0001 - S Primary Sciatica associated Feb- [facility] Inc, [facility] with disorder of 4-201 ROB. 33-57 [place] lumbar spine, left 6 [facility] DANE Erickson [address] [place] [address], [place], [place], [place], [address], [place], tel: [phone]. [phone] tel: [phone] 0001 - S Primary Acute maxillary Dec- [facility] Inc, [facility] sinusitis, 3-201 ROB. 33-57 [place] recurrence not 5 [facility] PC Hernán specified [address] [place] [address], [place], [place], [address], [place], tel: [phone]. [phone] tel: [phone] 0001 - S Primary Acute maxillary Nov- EZRA S Inc, [facility] [place] sinusitis, LAURA. recurrence not 5 [address] [facility] [place], [place] [address], [place], [place], [place], [address], [place], tel: [phone]. [phone] tel: [phone] 0001 - [facility] GI Neop, bng, large MOUNA S Inc, intestineFamily MEGAN. 40 History, Other [address] [facility] [address], Street, Floor [address], [place], [place], [place], [address], [place] [address]. tel: tel: [phone] 0001 - S Primary Bronchitis Carloz- [facility] Inc, [facility] ROB. [place] [address], [place], [address], [place], tel: [phone]. [phone] tel: [phone] 0001 - [facility] Primary HypothyroidismMixed [facility] Inc, [facility] HyperlipidemiaDepre ROB. [place] ssion [address], [place], [address], [facility], tel: [phone]. [phone] tel: [phone] 0001 - S Primary Hypothyroidism, [facility] Inc, [facility] postsurgicalMixed ROB. [place] HyperlipidemiaThera [address] [facility] peutic Drug [address] [place] [address], [place], [address], [place], tel: [phone]. [phone] tel: [phone] 0001 - S Primary Zoster ocular Sep- [facility] Inc, [facility] disease 2 ROB. [place] [address] [place], [place], [address], [place], tel: [phone]. [phone] tel: [phone] 0001 - [facility] Primary Zoster ocular Sep-[address] [facility] [facility] Inc, [facility] disease 3- ROB. [place] [address], [place], [address], [place], tel: [phone]. [phone] tel: [phone] 0001 - [facility] Primary Aug-[address] [place] Inc, [facility] 5 ROB. [place] [address], [place], [place], [place], [address], [place], tel: [phone]. [phone] tel: [phone] 0001 - [facility] Primary Asthma, intrinsic Carloz-0 [facility] Inc, [facility] w/o status 2- ROB. [place] asthmaticusFoot [address] [facility] pain [address] [place] [address], [place], [place], [place], [address], [place], tel: [phone]. [phone] tel: [phone] 0001 - [facility] Primary Acute upper Mar-2 SKIFF Referring S [facility], [facility] respiratory ROB. Provider: 33-57 Jameson infectionBronchitis 4 [facility] ROB Erickson Hearing loss [address] [place] [address], PC 119 [facility], [place], [place], [place], [place] [address], [place], [place], tel: [address]. [place], [phone]. [phone] tel: tel:[phone] 0001 - [facility] Primary Upper Respiratory Nov-2 SCHECTER Referring S [facility], Care [place] Infection, Acute ISAAK. Provider: 33-57 3 4417 ISAAK Erickson [facility], Pkw[address] , [address] [place], [place], [place], [facility], [address], [place], [place], tel: [address]. [place], [phone]. [phone] tel: tel: [phone] 0001 - S Primary Mixed Sep-0 SKIFF S Inc, [facility] HyperlipidemiaThera ROB. [place] peutic Drug 3 S PC Hernán MonitoringVitamin D 119 [place], [place], [place], [address], [place], tel: [phone]. [phone] tel: [phone] 0001 - S Follow-up LYNN S Inc, ENT/Facial examination, after RANDALL. 30 Plastic surgery 3 [facility], [facility] NOSSensorineRUST, [facility] Street, Hearing Loss, NOS 355, [place], [place], [place], [address], [place] [address]. tel: tel: [phone] 0001 - S Neop, bng, LYNN Referring S Inc, ENT/Facial scalp/skin, neck RANDALL. 30 Provider: - Plastic 3 [facility], [facility], [address], 355, [place], [place], [place], [place], [facility], [address], [place] [address]. [place] tel: tel: [place], [place], [phone] [address]. tel:[phone] 0001 - [facility] Primary Sprain/strain, [facility] Inc, [facility] hip/thigh NECNeop, ROB. [place] UB, skin 3 [facility] PC Hernán [address] [place] [address], [place], [address], [place], tel: [phone]. [phone] tel: [phone] 0001 - [facility] Primary Muscle strain of SKIFF Referring S Inc, [facility] gluteal region ROB. Provider: -57 [place] 3 S ROB Hernán [address] [place] [address], [facility], , [address], [place], [place], [facility] [address], [place], [place], tel: [address]. [place], [phone]. [phone] tel: tel:[phone] 0001 - S Primary Mixed Aug-1 SKIFF S Inc, [facility] HyperlipidemiaHypot 3- ROB. 33-57 [place] hyroidism, 2 [facility] PC Hernán postsurgicalMixed [address] [place] [address], HyperlipidemiaHypot [facility], [place], postsurgical [place], [address], [place], tel: [phone]. [phone] tel: [phone] 0001 - [facility] Primary Mixed Apr-2 [facility] Inc, [facility] HyperlipidemiaHypot 5 ROB. 3357 [place] hyroidism, 2 [facility] PC Hernán postsurgicalMixed [address] [place] [address], Hyperlipidemia [place], [place], [place], [address], [place], tel: [phone]. [phone] tel: [phone] 0001 - [facility] Primary Upper Respiratory Feb-2 [facility] Inc, [facility] Infection, ROB. 57 [place] AcuteMixed 2 [facility] PC Hernán HyperlipidemiaHypot [address] [place] [address], [facility], [facility] postsurgicalUpper [place], [place], Respiratory [place], [address], [place] Infection, [place], tel: AcuteMixed [phone]. [phone] HyperlipidemiaHypot tel: hyroidism, [phone] postsurgical 0001 - S Primary Therapeutic Drug Mar-3 [facility] [employer] Inc, [facility] MonitoringBronchiti ROB. 3357 [place] s, Acute 1 [facility] PC Hernán [address] [place] [address], [place], [place], [place], [address], [place], tel: [phone]. [phone] tel: [phone] 0001 - [facility] Primary Bronchitis, Acute Mar- [facility] [employer] Inc, [facility] ROB. 33-57 [place] 1 [facility] PC Hernán [address] [place] [address], [place], [place], [place], [address], [place], tel: [phone]. [phone] tel: [phone] 0001 - [facility] Primary Bronchitis, Acute Nov-2 [facility] Inc, [facility] ROB. [place] 0 [facility] Hernán [address] [place] [address], [place] [address], [facility], tel: [phone]. [phone] tel: [phone] 0001 - [facility] Primary Upper Respiratory Nov- [facility] Referring [facility] [address], [facility] Infection, Acute ROB. Provider: [place] 0 [facility] ROB Erickson [address] [place] [address], [address], [place], [place], [place] [address], [facility], [place], tel: [address]. [place], [phone]. [phone] tel: tel: [phone] 0001 - [facility] Primary Conjunctivitis May- [facility] Referring [facility] [address], [facility] NOSSinusitis, Acute ROB. Provider: [place] 0 [facility] ROB Erickson [address] [place] [address], [address], [place] [address], [facility], [place], tel: [address]. [place], [phone]. [phone] tel: tel: [phone] 0001 - [facility] Primary Sinusitis, Feb- [facility], [facility] AcuteDepression ROB. [place] 0 [facility] Hern[address], [place], [place], [place] [address], [facility], tel: [phone]. [phone] tel: [phone] 0001 - [facility] Primary Disturbance, visual Bryan-0 [facility] Inc, [facility] NECDisturbance, ROB. 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 urge/stressAsthma, [address] [facility] intrinsic w/o [address] [place] [address], [facility] asthmaticusAsthma, [place], [place], intrinsic w/o [place], [address], [place] status [place], tel: asthmaticusDisorder [phone]. [phone] , depressive tel: NECHypothyroidism, [phone] postsurgical 0001 - S Primary Incontinence, Nov-0 SKIFF S Inc, [facility] [place] mixed, urge/stress 4-200 ROB. [address], [place], [place], [place], [address], [facility], tel: [phone]. [phone] tel: [phone] 0001 - S Primary Sinusitis, acute Nov-2 TERESA Referring S Inc, Care [place] maxillary 4-200 ELIZABET. Provider: 54 [facility], [facility], [place], [address] [place] [address], [address]. [facility] [address], tel: [place], [address]. tel: [phone] tel: [phone] 0001 - S Primary Sinusitis, acute June-3 SKIFF Referring S Inc, [facility] NOS 0-200 ROB. Provider: 33 [place] 8 [facility] ROB [address], [address], [place], [place], [facility] [address], [facility], [place], tel: [address]. [place], [phone]. [phone] tel: tel: [phone] 0001 - S Primary Infection, up June-2 SKIFF Referring S Inc, Care [place] respirat, clay thrower 7-200 ROB. Provider: 3357 sites, acute NOS 8 [facility] ROB [address], [facility], [address], [place], [facility] [address], [facility], tel: [address]. [place], [phone]. [phone] tel: tel: [phone] 0001 - [facility] Primary Sciatica Bryan-2 SKIFF S Inc, Care [place] 2-200 ROB. 33 8 [facility] Hernán [address] [place] [address], [place], [address], [facility], tel: [phone]. [phone] tel: [phone] 0001 - [facility] Primary Sinusitis, acute Apr-2 [facility] Referring S Inc, Care [place] NOS 3-200 ROB. Provider: 33 7 [facility] ROB Erickson [address] [place] [address], [address], [facility] [address], [facility], tel: [address]. [place], [phone]. [phone] tel: tel: [phone] 0001 - [facility] Primary Bronchitis, Mar-0 [facility] Inc, [facility] [place] acuteLeukemia, 6-200 ROB. chronic lymphoid, 7 [facility] Hernán in [address] [place] [address], remissionLeukemiaE[facility] chronic lymphoid, [place], [place], in remission [place], [address], [facility], tel: [phone]. [phone] tel: [phone] 0001 - [facility] Primary Dec-2 TERESA Referring S Inc, Care [place] 6-200 ELIZABET. Provider: 6 54 [facility], [facility], [place], [address] [place], [address]. [place], [address], [place]: [place], [address]. tel: [phone] tel: [phone] 0001 - [facility] Primary Nov-0 SKIFF Referring S Inc, Care [place] 9-200 ROB. Provider: 33 6 [facility] ROB [address], [facility], [address], [place], [place], [facility] [address], [place], [place], tel: [address]. [place], [phone]. [phone] tel: tel:[phone] 0001 - [facility] Primary Reflux, esophageal Oct-2 [facility] Inc, Care [place] 4-200 ROB. 33-57 6 S Hernán [address] [place] [address], [place], [place], [place], [address], [place], tel: [phone]. [phone] tel: [phone] 0001 - [facility] Primary Leukemia, chronic Oct-1 [facility] Inc, [facility] [place] lymphoid, in 0-200 ROB. 33-57 remissionSinusitis, 6 [facility] Hernán acute NOS [address] [place] [address], [place], [address], [place], tel: [phone] tel: [phone] 0001 - [facility] Primary Hypothyroidism, Apr-0 [facility], [facility] [place] postsurgicalHyperli 3-200 ROB. 3357 pidemia, 6 [facility] Hernán mixedAsthma, [address] [place] [address], [facility] w/o [place], [place], asthmaticusMigraine [place], [address], [place] , classical w/o [place], tel: intractable [phone] migraine tel: [phone] 0001 - [facility] Primary Panic disorder w/o b- [facility], [facility] [place] agroaphobia 6-200 ROB. 33-57 6 [facility] [address] [place] [address], [place], [address], [place], tel: [phone] tel: [phone] 0001 - [facility] Primary Apr-0 [facility], [facility] [place] 7-200 LASHONDA. 33-57 5 54 [facility], [place], [facility], [place], [place], [address], [place] [address]. tel: tel:[phone] Family History Family Member Diagnosis Age At [...] Record Payers Payer name Insurance type Covered constitution party ID Authorization(s) Sonal Ramos [id number] Medicare Mc [id number] Social History Type Description Quantity Date Captured Comments Unknown Vital Signs Date / Height Weight [...] 09/28/2017 Referral Ordered: ordered Referrals: Cardiology. Location: [facility] Cardiology Appointment date/timeframe: 1 Week Referral Referred To: ordered DENIS MYAFIELD MD [address] [facility] [address] [place], [address] [phone] Ordered: Referrals: Hematology/Oncology. DENIS MAYFIELD MD. Follow-up [...] Referred To: ordered [address], [place], [address] [phone] Ordered: VAZQUEZ RANDOLPH. Ophthalmology. Appointment date/timeframe: 10/10/2013 Referral Ordered: ordered Xray Foot complete (Must choose side) Bilateral fore foot Referral Ordered: ordered Hearing Test Complete Appointment date/timeframe: 05/14/2013 Referral Referred To: ordered RANDALL BAILEY [facility] [address] [place], [address] [phone] Ordered: RANDALL BAILEY. Plastic Surgery - Facial. Consult and treat. Appointment date/timeframe: 08/29/2012 Referral Ordered: ordered Screening Mammogram, Bilateral, 2 Views Each Referral Referred To: ordered ADOLFO WINKLER [address] [place], [address] [phone] Ordered: ADOLFO WINKLER. Ophthalmology. Consult and treat. [...] complication Continue statin. Related to Mixed hyperlipidemia Will recheck thyroid funcrtion Related to Acquired hypothyroidism Wll recheck liver enzymes Related to Elevated liver enzymes Drink plenty of fluids and start the [...] for recheck. Thank you for choosing the [facility] Walk In. We hope that you [...] go Related to Elevated liver enzymes to [facility] for testing a=nd possibole treatment. Doxycycline 2x/day [...] Start cephalexin, on three times Related to Rowena infected daily. use a donut cusion around [...] will schedule her for implantable loop recorder History of hyperlipidemia on Related to Mixed hyperlipidemia atorvastatin. Continue same 62-year-old complaining of chest pain Related to [...] schedule her for exercise Cardiolite stress test Oscar ask Ddr. Mayfield to see her [...] Dr. Mustafa. will follow up attack) with [facility] issues below. EKG with NSR, confirmed [...]
--- OUTSIDE RECORDS SUMMARY | 2019-04-08 19:06 | XMS REPORT | Continuity of Care Document ---
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 [phone] Problems Active Problems Provider Date Chronic lymphoid leukemia, disease Ludin Moncada MD Onset: 12/15/2009 Social History Type Date Description Comments Sex Unknown Tobacco Use Start: Unknown Patient has never smoked Allergies, Adverse Reactions, Alerts Active Allergies Reaction Severity Comments Date NSAIDs Hives Swollen Tongue 05/12/2010 Medications Active Medications SIG Qnty Indications Ordering Provider Date Synthroid 1 po every 3 days 30tabs Unknown 150mcg Tablets Fluoxetine HCL 3 PO Daily Unknown 20mg Capsules Lipitor 1 PO Daily Unknown 10mg Tablets Pantoprazole Sodium 1 po qd 90tabs Unknown 40mg Tablets DR Neurontin 1 PO Daily Unknown 300mg Capsules Zomig 1 PO Daily prn Unknown 2.5mg Tablets Centrum Silver Ultra 1 PO Daily Unknown Womens Tablets Acyclovir 1 by mouth twice Unknown 200mg a day Capsules Qvar as directed Unknown 80mcg/Act Aerosol Calcium 600+D 1 by mouth once a Unknown day [id number] Tablets Synthroid 1 po 2 days on, 1 Unknown 175mcg day off Tablets Plavix 1 by mouth every Unknown 75mg Tablets day Immunizations CPT Code Status Date Vaccine Lot # [id number] Given 12/28/2016 Influenza (Fluzone) 3 years of age and older [id number] Given 11/17/2010 Flu Vaccine [id number] 18785 Given 11/22/2006 Flu Vaccine [id number] 66228 Given 12/01/2004 Flu Vaccine [id number] Vital Signs Date Vital Result Comment 02/20/2019 8:39am Height 65 inches 5'5" Weight 151.00 lb 68.5 BSA (Body Surface Area) 1.76 m2 kgs BP Systolic 119 mmHg BP Diastolic 56 mmHg Body Temperature 97.6 F Heart Rate 67 /min Respiratory Rate 14 /min O2 % BldC Oximetry 98 % BMI (Body Mass Index) 25.1 kg/m2 08/25/2018 8:56am Height 65 inches 5'5" Weight 149.25 lb 67.9 kgs BSA (Body Surface Area) 1.75 m2 BP Systolic 109 mmHg BP Diastolic 65 mmHg Body Temperature 98.3 F oral Heart Rate 75 /min Respiratory Rate 14 /min O2 % BldC Oximetry 98 % BMI (Body Mass Index) 24.8 kg/m2 Results Test Acquired Date Facility Test Result H/L Range Note CBC + Auto Diff 02/20/[address] [facility] WBC 22.1 K/uL High 4- 10.[address] [place] [address] [phone] RBC 4.26 M/uL 4.00-6.30 HGB 12.6 g/dL 12.0-17.0 HCT 39.7 % 37.0-51.0 MCV 93.2 fL 80.0-97.0 MCH 29.6 pg 26.0-32.0 MCHC 31.7 g/dL 31.0-36.0 Platelets 138 K/uL Low 150-400 MPV 10.7 fL High 6.0-10.0 RDW 15.5 % 13.0-16.5 Comp. Metabolic 02/20/[address] [facility] BUN 27 mg/dL High 7- [address] [place] [address] [phone] Creatinine 0.9 mg/dL 0.5-1.5 Calcium 9.5 mg/dL 8.6-10.3 Sodium 138 mmol/L 135-145 Potassium 4.3 mmol/L 3.5-5.0 Chloride 106 mmol/L 98-107 Carbon Dioxide 28 mmol/L 21-30 Glucose (Random) 91 mg/dL 70-105 Total Protein 6.4 g/dL 6.0-8.3 Albumin 4.7 g/dL 3.5-5.0 Ast (Sgot) 18 U/L 10-35 Alk Phosphatase 74 U/L 34-104 Total Bilirubin 0.5 mg/dL 0.3-1.0 Alt (SGPT) 18 U/L 7-52 BUN Crea Ratio 30.0 Ratio High 9-28 eGFR 63 High >60 1 CBC + Auto Diff 08/25/2018 Inhouse [facility] WBC 22.3 K/uL High 4- 10.[address] [place] [address] [phone] RBC 4.51 M/uL 4.00-6.30 HGB 13.1 g/dL 12.0-17.0 HCT 40.1 % 37.0-51.0 MCV 88.9 fL 80.0-97.0 MCH 29.0 pg 26.0-32.0 MCHC 32.7 g/dL 31.0-36.0 Platelets 158 K/uL 150-400 MPV 10.2 fL High 6.0-10.0 RDW 14.4 % 13.0-16.5 Comp. Metabolic 08/25/2018 [facility]house [facility] BUN 32 mg/dL High 7- [address] [place] [address] [phone] Creatinine 1.0 mg/dL 0.5-1.5 Calcium 9.4 mg/dL 8.6-10.3 Sodium 138 mmol/L 135-145 Potassium 4.1 mmol/L 3.5-5.0 Chloride 108 mmol/L High 98-107 Carbon Dioxide 28 mmol/L 21-30 Glucose (Random) 110 mg/dL High 70-105 Total Protein 6.3 g/dL 6.0-8.3 Albumin 4.4 g/dL 3.5-5.0 Ast (Sgot) 17 U/L 10-35 Alk Phosphatase 76 U/L 34-104 Total Bilirubin 0.7 mg/dL 0.3-1.0 Alt (SGPT) 15 U/L 7-52 BUN Crea Ratio 32.0 Ratio High 9-28 eGFR 56 >60 2 1 The units for GFR are mL per minute per 1.73m^2. If the patient is multiply the result by 1.212. 2 The units for GFR are mL per minute per 1.73m^2. If the patient is multiply the result by 1.212. Procedures Description No Information Available Medical Devices Description No Information Available Encounters Description No Information Available Assessments Date Code Description Provider 02/20/2019 C91.10 Chronic lymphocytic leukemia of B-cell type not Ludin Moncada MD having achie 02/20/2019 Z08 Encounter for follow-up examination after Ludin Moncada MD completed treatmen 08/25/2018 C91.10 Chronic lymphocytic leukemia of B-cell type not Ludin Moncada MD having achie 08/25/2018 Z08 Encounter for follow-up examination after Ludin Moncada MD completed treatmen Plan of Treatment Future Appointment(s):08/28/2019 8:00 am - Ludin Moncada MD at [facility] Functional Status Description No Information Available Mental Status Description No Information Available Referrals Description No Information Available
--- OUTSIDE RECORDS SUMMARY | 2019-04-08 19:06 | XMS REPORT | Continuity of Care Document ---
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 [phone] Problems Active Problems Provider Date Chronic lymphoid [...] 1 by mouth once a Unknown day [id number] Tablets Synthroid 1 po 2 days on, 1 Unknown 175mcg day off Tablets Plavix 1 by mouth every Unknown 75mg Tablets day Immunizations CPT Code Status Date Vaccine Lot # [id number] Given 12/28/2016 Influenza (Fluzone) 3 years of age and older [id number] 72466 Given 11/17/2010 Flu Vaccine [id number] 26376 Given 11/22/2006 Flu Vaccine [id number] 05227 Given 12/01/2004 Flu Vaccine [id number] Vital Signs Date Vital Result Comment 02/20/2019 [...] Note CBC + Auto Diff 02/20/[address] [facility] WBC 22.1 K/uL High 4- 10.[address] [place] [address] [phone] RBC 4.26 M/uL 4.00-6.30 HGB 12.6 g/dL 12.0-17.0 HCT 39.7 % 37.0-51.0 MCV 93.2 fL 80.0-97.0 MCH 29.6 pg 26.0-32.0 MCHC 31.7 g/dL 31.0-36.0 Platelets 138 K/uL Low 150-400 MPV 10.7 fL High 6.0-10.0 RDW 15.5 % 13.0-16.5 Comp. Metabolic 02/20/[address] [facility] Sodium 138 mmol/L 135 -[address] [place] [address] [phone] Potassium 4.3 mmol/L 3.5-5.0 Chloride 106 mmol/L 98-107 CBC + Auto Diff 08/25/[address] [facility] WBC 22.3 K/uL High 4- 10.[address] [place] [address] 398[address] [phone] RBC 4.51 M/uL 4.00-6.30 HGB 13.1 g/dL 12.0-17.0 HCT 40.1 % 37.0-51.0 MCV 88.9 fL 80.0-97.0 MCH 29.0 pg 26.0-32.0 MCHC 32.7 g/dL 31.0-36.0 Platelets 158 K/uL 150-400 MPV 10.2 fL High 6.0-10.0 RDW 14.4 % 13.0-16.5 Comp. Metabolic 08/25/2018 Inhouse [facility] BUN 32 mg/dL High 7- 25 [address] [facility], [address] [place] [address] [phone] Creatinine 1.0 mg/dL 0.5-1.5 Calcium 9.4 mg/dL [...] 32.0 Ratio High 9-28 eGFR 56 >60 1 1 The units for GFR are mL [...] 8:00 am - Ludin Moncada MD at [facility] Functional Status Description No Information Available Mental Status Description No Information Available Referrals Description No Information Available
--- OUTSIDE RECORDS SUMMARY | 2019-04-08 19:06 | XMS REPORT | Continuity of Care Document ---
:1955 Author Organization 0001 - [facility] Address [address] [place] [address] Phone Care Team Providers Name Role Phone ROB HUFFMAN MD Unavailable Unavailable Allergies, Adverse Reactions, Alerts Substance Reaction Status chlorpheniramine Active ibuprofen Active PSEUDOEPHEDRINE HCL Active NAPROXEN SODIUM Active meloxicam Active aspirin Unknown Active WARNIN allergy(ies) could not be collected because the type is not supported. [facility] details. Medications Medication [...] days alternating with one day of 150mcg. Synthroid 150 mcg TAKE 1 TABLET BY - No Longer tablet MOUTH DAILY Active ALTERNATING WITH 2 DAYS OF 175MCG Tylenol 325 mg Tab prn - No Longer Active Problems Condition Effective Dates (start - stop) Clinical Status Essential (primary) hypertension Mixed hyperlipidemia TIA (transient ischemic attack) Cigarette nicotine dependence without complication History of loop recorder Type 2 diabetes mellitus without - complications Prsnl hx of TIA (TIA), and cereb infrc - w/o resid deficits Acute non-recurrent maxillary sinusitis Elevated liver enzymes Acquired hypothyroidism Mixed dyslipidemia Screening for viral disease Acute maxillary sinusitis, recurrence not specified Abscess Elevated liver enzymes Lyme disease Dark urine Right upper quadrant pain Erythema migrans (Lyme disease) [place] infected Acute pharyngitis, unspecified Toe infection Acute [...] disorder w/o agroaphobia Acute 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 [address], [place], [address], [facility], tel:[phone] tel: [phone] 0001 - [facility] WS Essential (primary) Mar- ROSEVEAR S Inc, Cardiology hypertensionMixed SRIDEVI. 33[address]57 hyperlipidemiaTIA 0 30 Hernán (transient ischemic Hern[address] Street, attack)Cigarette [facility] nicotine dependence [address] [place], [place], without 250, [address], [place] complicationHistory Arthur tel: of [place], [place], [id number] recorderType 2 91106. diabetes mellitus tel: without [phone] complicationsPrsnl hx of TIA (TIA), and cereb infrc w/o resid deficits 0001 - [facility] Primary [facility] [employer], [facility] ROB. 33-57 [place] 0 S PC Hernán [address] [place] [address], [place], [address], [place], tel: [phone] tel: [phone] 0001 - [facility] Primary [facility], [facility] ROB. 33-57 [place] 0 [facility] PC Hernán [address] [place] [address], [place], [address], [place], tel: [phone]. [phone] tel: [phone] 0001 - [facility] Primary [facility], [facility] ROB. 33-57 [place] [address], [place], [address], [place], tel: [phone] tel: [phone] 0001 - [facility] Primary Acute non-recurrent Jan- [facility], [facility] ROB. 33-57 [place] sinusitisElevated 9 S [facility] liver [address] [place] [address], enzymesAcquired [facility] hypothyroidismMixAustin, [place], dyslipidemiaScreeni [place], [address], [place] ng for viral [place], tel: disease [phone]. [phone] tel: [phone] 2019 - S Primary Dec-0 [facility] [employer], [facility] ROB. 33-57 [place] 9 [facility] PC [address], [place], [address], [place], tel: [phone]. [phone] tel: [phone] 0001 - [facility] Primary Nov-2 SKIFF [facility] Inc, [facility] 0 ROB. [address] [place] [address], [place], [address], [place], tel: [phone]. [phone] tel: [phone] 0001 - [facility] Primary Nov-1 SKIFF [facility] Inc, [facility] ROB. 33[address] [place] [address], [place], [address], [place], tel: [phone]. [phone] tel: [phone] 0001 - [facility] Primary Nov-0 SKIFF [facility] Inc, [facility] ROB. [address] [place] [address], [place], [address], [place], tel: [phone]. [phone] tel: [phone] 0001 - [facility] Primary Acute maxillary Oct-2 SKIFF [facility] Inc, [facility] sinusitis, ROB. [address]357 [place] recurrence not [address], [place], [address], [place], tel: [phone]. [phone] tel: [phone] 0001 - [facility] Primary Oct-2 SKIFF [facility] Inc, [facility] ROB. [address] [place] [address], [place], [address], [place], tel: [phone]. [phone] tel: [phone] 0001 - [facility] Primary Oct-0 SKIFF [facility] Inc, [facility] ROB. [address] [place] [address], [place], [address], [place], tel: [phone]. [phone] tel:+ [phone] 0001 - S Walk-In Abscess Sep-2 CALLE S Inc, Center 6 RUPERTO. 33-57 Sameer [address] [place], [address]. [address], [place] tel:+ tel:+ [phone] 0001 - S Primary Elevated liver Sep-0 SKIFF [facility], [facility] enzymesLyme disease ROB. 33-[address] [place] [address], [place], [address], [place], tel:+ [phone]. [phone] tel: [phone] 0001 - [facility] Walk-In Dark urineRight Sep-0 [employer] S Inc, Center upper quadrant 2 BEATA. 33-57 [place] painErythema 9 [address] [place] migrans (Lyme [facility], disease) [place], [place], [place], [address], [place], tel:+ [phone]. [phone] tel: [phone] 0001 - [facility] Primary [place] infected Carloz- [facility], [facility] ROB. [address], [place], [address], [place], tel:+ [phone]. [phone] tel: [phone] 0001 - [facility] Walk-In Acute pharyngitis, CARVER S Inc, Center unspecifiedToe DUARTE. 3357 [place] infection 9 [address] [place] [facility], [place], [place], [place], [address], [place], tel:+ [phone]. [phone] tel:+ [phone] 0001 - [facility] Walk-In Acute Apr- STEF HO. S Inc, Center conjunctivitis of 4417 33[address]57 [place] both eyes, 9 Sameer Hernán unspecified acute [facility] conjunctivitis [facility] typeSinus [place], [place], [place], [address], [place] [address]. tel: tel: [phone] 0001 - [facility] Primary Feb- SKIFF [facility] Inc, [facility] [place] ROB. [place] 9 [facility] PC Hernán [address] [place] [address], [place], [place], [address], [place], tel: [phone]. [phone] tel: [phone] 0001 - [facility] Primary Feb-3 SKIFF [facility], [facility] [place] ROB. 33 [place] 9 [facility] PC Hernán [address] [place] [address], [place], [place], [address], [place], tel: [phone]. [phone] tel: [phone] 0001 - [facility] Primary Moderate persistent Feb- SKIFF [facility] Inc, [facility] [place] asthmatic ROB. [place] bronchitis with 9 [facility] PC Hernán [address], [facility] bite of left hand, [place], [place], initial encounter [place], [address], [place] ^Bitten by cat, [place], tel: initial encounter [phone]. [phone] tel: [phone] 0001 - [facility] Primary Bryan-0 SKIFF [facility] Inc, [facility] [place] ROB. [place] 9 [facility] PC Hernán [address] [place] [address], [place], [address], [facility], tel: [phone] tel: [phone] 0001 - [facility] Primary Acute bronchitis, SKIFF [facility] Inc, [facility] [place] unspecified ROB. [place] organism 8 [facility] PC Hernán [address] [place] [address], [place], [place], [address], [place], tel: [phone]. [phone] tel: [phone] 0001 - [facility] Neuro TIA (transient Sep- MUSTAFA [facility] Inc, Inter Surg ischemic attack) CARMEN. 30 8 [facility], [place], [address], [place] [address], [place], [place], tel: [phone]. [phone] tel: [phone] 0001 - [facility] Primary Lymphadenitis Sep- [facility] S Inc, [facility] [place] ROB. [place] 8 S PC Hernán [address] [facility], [place], [place], [place], [address], [place], tel: [phone]. [phone] tel: [phone] 2019 - [facility] WS Chest pain, Sep-0 AHMED S Inc, Cardiology unspecified BOUCHRA. typeMixed 8 [facility] [address] [place] hyperlipidemiaPalpi [facility], tationsPrsnl hx of [facility] (TIA), and [place], [place], cereb infrc w/o 250, [address], [place] [facility] tel: [place], [place], [phone]. tel: [phone] 0001 - [facility] Primary Lymph nodes Sep-0 [facility] Inc, [facility] [place] enlargedTIA ROB. 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 [phone] mammogram for tel: breast cancer [phone] 0001 - S Primary Sep-0 [employer] S Inc, [facility] [place] CARE. . [place] 8 [facility], [place], [address], [place] tel: [phone] 0001 - [facility] Primary Chest pain, Aug- RISING S Inc, Care [place] unspecified type SYLVAIN. 8 [address] [facility], [place], [place], [address]. [address], [place] tel: tel: [phone] 0001 - S Primary Vascular bruit Dec- SKIFF S Inc, [facility] [place] ROB. [place] 7 S PC Hernán [address] [facility], [place], [place], [place], [address], [place], tel: [phone]. [phone] tel: [phone] 0001 - S Primary Mixed [facility] [employer], [facility] hyperlipidemiaPostp 1 ROB. 3357 [place] rocedural 7 [facility] PC Hernán hypothyroidismUnspe [address] [place] [address], cified [facility] sensorineural [place], [place], hearing lossChronic [place], [address], [place] lymphocytic [place], tel: leukemia of B-cell [phone]. [phone] type in tel: remissionBruit [phone] 0001 - S Primary Mixed June-3 SKIFF [facility], [facility] hyperlipidemiaHypot 0- ROB. 33-57 [place] hyroidism, 7 [facility] PC Hernán unspecified [address] [place] [address], [place], [place], [address], [place], tel: [phone]. [phone] tel: [phone] 2019 - S Primary Tick bite, [facility] S Inc, [facility] subsequent ROB. 33-57 [place] encounterAching 7 [facility] PC Hernán headacheNeck [address] [place] [address], painAcute [facility] left-sided low back [place], [place], pain without [place], [address], [place] sciatica [place], tel: [phone]. [phone] tel: [phone] 0001 - S Primary Acute [facility]TY CENTERCloverhill EnterprisesS Inc, [facility] conjunctivitis of ROB. 3357 [place] right eye, 6 [facility] PC Hernán unspecified acute [address] [place] [address], conjunctivitis type [place], [place], [place], [address], [place], tel: [phone]. [phone] tel: [phone] 0001 - Encounter for [employer], screening mammogram 0 for high-risk 6 Hernán [place], [address], [place] tel: [phone] 2019 - S Primary HivesEncounter for [facility]TY CENTERCloverhill EnterprisesS Inc, [facility] screening mammogram 8 ROB. 3357 [place] for high-risk 6 [facility] PC Hernán patientPostprocedur 119 [facility], [facility] hypothyroidismChron [place], [place], ic lymphocytic [place], [address], [place] leukemia of B-cell [place], tel: type in remission [phone]. [phone] tel: [phone] 0001 - [facility] Primary Acute bronchitis, Feb-0 SKIFF [facility], [facility] unspecified 4-201 ROB. 33-57 [place] 6 [facility] PC Hernán [address] [place] [address], [place], [address], [place], tel: [phone]. [phone] tel: [phone] 0001 - [facility] Primary Sciatica associated Bryan-2 SKIFF [facility], [facility] with disorder of 2-201 ROB. 33-57 [place] lumbosacral spine, 6 [facility] PC Hernán left [address] [place] [address], [place], [address], [place], tel: [phone]. [phone] tel: [phone] 0001 - [facility] Primary Sciatica associated Bryan-0 SKIFF [facility], [facility] with disorder of 8-201 ROB. 33-57 [place] lumbar spine, left 6 [facility] PC Hernán [address] [place] [address], [place], [address], [place], tel: [phone]. [phone] tel: [phone] 0001 - [facility] Primary Sciatica associated Bryan-0 SKIFF [facility], [facility] with disorder of 4-201 ROB. 33-57 [place] lumbar spine, left 6 [facility] PC Hernán [address] [place] [address], [place], [place], [address], [place], tel: [phone]. [phone] tel: [phone] 0001 - [facility] Primary Acute maxillary Dec-2 SKIFF [facility] Inc, [facility] sinusitis, 3-201 ROB. 33-57 [place] recurrence not 5 [facility] PC Hernán specified [address] [place] [address], [place], [address], [place], tel: [phone]. [phone] tel: [phone] 0001 - [facility] Primary Acute maxillary Oct-0 EZRA [facility] Inc, [facility] [place] sinusitis, LAURA. recurrence not 5 [address] [facility], [place], [place], [place], [place], [address], [place], tel: [phone]. [phone] tel: [phone] 0001 - [facility] GI Neop, bng, large Sep- MOUNA [employer] Inc, intestineFamily MEGAN. 40 History, Other [address] [facility] [address], Street, Floor [address], [place], [place], [place], [address], [place] [address]. tel: tel: [phone] 0001 - [facility] Primary Bronchitis Carloz- [employer], [facility] ROB. [place] [address], [place], [address], [place], tel: [phone]. [phone] tel: [phone] 0001 - [facility] Primary HypothyroidismMixed [employer], [facility] HyperlipidemiaDepre ROB. [place] ssion [address], [place], [address], [place], tel: [phone]. [phone] tel: [phone] 0001 - [facility] Primary Hypothyroidism, [facility] CENTERIncomparable Things, [facility] postsurgicalMixed ROB. [place] HyperlipidemiaThera 5 [facility] peutic Drug [address] [place] [address], [place], [place], [place], [address], [place], tel: [phone]. [phone] tel: [phone] 0001 - [facility] Primary Zoster ocular Sep- [employer], [facility] disease ROB. [place] [address], [place], [address], [place], tel: [phone]. [phone] tel: [phone] 0001 - [facility] Primary Zoster ocular Sep-0 SKIFF S Inc, [facility] [place] disease 3- ROB. 33-57 [place] 4 [facility] Hern[address], [place], [address], [place], tel: [phone]. [phone] tel: [phone] 0001 - [facility] Primary Aug-2 SKIFF S Inc, [facility] 5- ROB. 33-57 [place] 4 S PC Hern[address], [place], [address], [place], tel: [phone]. [phone] tel: [phone] 0001 - [facility] Primary Asthma, intrinsic Carloz-0 [facility] S Inc, [facility] w/o status 2- ROB. 33 [place] asthmaticusFoot 4 [facility] Hernán pain [address] [place] [address], [place], [address], [facility], tel: [phone]. [phone] tel: [phone] 0001 - [facility] Primary Acute upper Mar-2 SKIFF Referring S Inc, [facility] respiratory ROB. Provider: 33 [place] infectionBronchitis 4 [facility] ROB Erickson Hearing loss [address] [place] [address], PC 119 [place], [place], [facility] [address], [facility], [place], tel: [address]. [place], [phone]. [phone] tel: tel: [phone] 0001 - [facility] Primary Upper Respiratory Nov-2 SCHECTER Referring S Inc, [facility] [place] Infection, Acute ISAAK. Provider: 3 4417 ISAAK Erickson [facility], [address], [place], [facility], [address], [facility], [place], tel: [phone]. [place], [address]. [phone] tel: tel: [phone] 0001 - [facility] Primary Mixed Sep-0 SKIFF S Inc, [facility] [place] HyperlipidemiaThera ROB. [place] peutic Drug 3 [facility] Hernán MonitoringVitamin D [address] [place] [address], [place], [address], [place], tel: [phone]. [phone] tel: [phone] 0001 - [facility] Follow-up [facility] Inc, ENT/Facial examination, after RANDALL. [address] [facility] NOSSensorineural , [facility] Street, Hearing Loss, NOS 355, [place], [place], [place], [address], [place] [address]. tel: tel: [phone] 0001 - [facility] Neop, bng, [facility] Referring S Inc, ENT/Facial scalp/skin, neck RANDALL. 30 Provider: -[address] [place] [address], [facility], [address], [facility], [place], [place], [place], [facility], [address], [place] [address]. [place] tel: tel: [place], [place], [phone] [id number]. tel:[phone] 0001 - [facility] Primary Sprain/strain, [facility] Inc, [facility] hip/thigh NECNeop, ROB. [place] UB, skin 3 [facility] Hernán [address] [place] [address], [place], [address], [place], tel: [phone]. [phone] tel: [phone] 0001 - [facility] Primary Muscle strain of [facility] Referring S Inc, [facility] gluteal region ROB. Provider: 33-57 [place] 3 [facility] ROB Hernán [address] [place] [address], [address], [place], [facility] [address], [place], [place], tel: [address]. [place], [address]. [id number] tel: tel: [phone] 0001 - S Primary Mixed Aug- SKIFF [facility] Inc, [facility] HyperlipidemiaHypot 3- ROB. 33-57 [place] hyroidism, 2 [facility] PC Hernán postsurgicalMixed [address] [place] [address], HyperlipidemiaHypot [facility], [place], postsurgical [place], [address], [place], tel: [phone]. [phone] tel: [phone] 0001 - [facility] Primary Mixed Apr-2 SKIFF [facility] Inc, [facility] HyperlipidemiaHypot 5- ROB. 33-57 [place] hyroidism, 2 [facility] PC Hernán postsurgicalMixed [address] [place] [address], Hyperlipidemia [place], [place], [place], [address], [place], tel: [phone]. [phone] tel: [phone] 0001 - S Primary Upper Respiratory Feb- SKIFF [facility] Inc, [facility] Infection, ROB. 33-57 [place] AcuteMixed 2 [facility] Hernán HyperlipidemiaHypot [address] [place] [address], [facility], [facility] postsurgicalUpper [place], [place], Respiratory [place], [address], [place] Infection, [place], tel: AcuteMixed [phone]. [phone] HyperlipidemiaHypot tel: hyroidism, [phone] postsurgical 0001 - S Primary Therapeutic Drug Mar-3 SKIFF [facility] Inc, [facility] MonitoringBronchiti ROB. 33-57 [place] s, Acute [address], [place], [place], [address], [place], tel: [phone]. [phone] tel: [phone] 0001 - [facility] Primary Bronchitis, Acute Apr- SKIFF [facility] Inc, [facility] ROB. 33-57 [place] [address], [place], [place], [place], [address], [place], tel: [phone]. [phone] tel: [phone] 0001 - [facility] Primary Bronchitis, Acute Oct- SKIFF [facility] Inc, [facility] ROB. 33-57 [place] 0 [facility] PC Hernán [address] [place] [address], [place], [address], [facility], tel: [phone]. [phone] tel: [phone] 0001 - [facility] Primary Upper Respiratory Nov- [facility] Referring S Inc, [facility] [place] Infection, Acute ROB. Provider: 3357 [place] 0 S ROB Erickson [address] [place] [address], [address], [place], [place] [address], [facility], [place], tel: [address]. [place], [address]. [id number] tel: tel: [phone] 0001 - [facility] Primary Conjunctivitis May- [facility] Referring [facility], [facility] NOSSinusitis, Acute ROB. Provider: 3357 [place] 0 S ROB Erickson [address] [place] [address], [address], [place] [address], [facility], [place], tel: [address]. [place], [phone]. [id number] tel: tel: [phone] 0001 - [facility] Primary Sinusitis, Fe [facility] Inc, [facility] AcuteDepression ROB. [place] 0 S Hernán [address] [place] [address], [place], [facility], [facility], tel: [phone]. [phone] tel: [phone] 0001 - [facility] Primary Disturbance, visual Rbyan- [facility] Inc, [facility] [place] NECDisturbance, ROB. [place] visual NECDisorder, 0 S Hernán [address], NECLeukemia, [facility] chronic lymphoidPal[place], [place], in [place] [address], remissionFailWaynesburg, [place], tel: postablative [phone]. [phone] ovarian tel: [phone] 0001 - [facility] Primary Incontinence, [facility], [facility] [place] mixed, ROB. urge/stressAsthma, 8 [facility] Hernán intrinsic w/o [address] [place] [address] asthmaticusAsthma, [place], [place], intrinsic w/o [place], [address], [place] status [place], tel: asthmaticusDisorder [phone]. [phone] , depressive tel: NECHypothyroidism, [phone] postsurgical 0001 - [facility] Primary Incontinence, Nov-0 SKIFF S Inc, [facility] [place] mixed, urge/stress 4-200 ROB. 8 S Hernán [address] [place] [address], [place], [place], [place], [address], [place], tel: [phone]. [phone] tel: [phone] 0001 - S Primary Sinusitis, acute Nov-2 TERESA Referring S Inc, [facility] [place] maxillary 4-200 ELIZABET. Provider: 54 [facility], [facility], [place], [address] [place] [address], [address]. [place], [address], [place]: [place], [address]. tel: [phone] tel: [phone] 0001 - S Primary Sinusitis, acute June-3 SKIFF Referring S Inc, [facility] [place] NOS 0-200 ROB. Provider: [place] 8 [facility] ROB Erickson [address] [place] [address], [address], [facility] [address], [facility], tel: [address]. [place], [address]. 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 Provider: sites, acute NOS 8 [facility] ROB Erickson [address] [place] [address], [address], [facility] [address], [facility], tel: [address]. [place], [address]. [phone] tel: tel: [phone] 0001 - [facility] Primary Sciatica Bryan-2 SKIFF S Inc, [facility] [place] 2-200 ROB. 33 8 S PC Hernán [address] [place] [address], , [place], [place], [place], [address], [facility], tel: [phone]. [phone] tel: [phone] 0001 - S Primary Sinusitis, acute Apr-2 SKIFF Referring S Inc, [facility] [place] NOS 3-200 ROB. Provider: 33 7 S ROB Erickson [address] [place] [address], [facility], [address], [place], [facility] [address], [facility], tel: [address]. [place], [address]. [id number] tel: tel: [phone] 0001 - [facility] Primary Bronchitis, Mar-0 SKIFF S Inc, [facility] [place] acuteLeukemia, 6-200 ROB. 33 chronic lymphoid, 7 [facility] Hernán in [address] [place] [address], remissionLeukemia, [facility] chronic lymphoid, [place], [place], in remission [place], [address], [facility], tel: [phone]. [phone] tel: [phone] 0001 - S Primary Dec-2 TERESA Referring S Inc, Care [place] 6-200 ELIZABET. Provider: 33 [phone] [facility], [facility], [place], [address] [place] [address], [address]. [place], [address], tel: [place], [address]. tel: [phone] tel: [phone] 0001 - S Primary Nov-0 [facility], [facility] [place] 9-200 ROB. Provider: 3357 6 S ROB Erickson [address] [place] [address], [facility], , [address], [place], [place], [facility] [address], [facility], tel: [phone]. [place], [phone]. [id number] tel: tel:[phone] 0001 - [facility] Primary Reflux, esophageal Oct-2 [facility], [facility] [place] 4-200 ROB. 33-57 6 S Hernán [address] [place] [address], [place], [address], [facility], tel: [phone] tel: [phone] 0001 - [facility] Primary Leukemia, chronic Oct-1 [facility] Inc, [facility] [place] lymphoid, in 0-200 ROB. 33-57 remissionSinusitis, 6 [facility] Hernán acute NOS [address] [place] [address], [place], [address], [facility], tel: [phone] tel: [phone] 0001 - [facility] Primary Hypothyroidism, Apr-0 [facility], [facility] [place] postsurgicalHyperli 3-200 ROB. 3357 pidemia, 6 [facility] Hernán mixedAsthma, [address] [place] [address], intrinsic w/o [place], [place], asthmaticusMigraine [place], [facility], [place] , classical w/o [place], tel: [facility] [phone]. [phone] migraine tel: [phone] 0001 - [facility] Primary Panic disorder w/o Feb-1 [facility], [facility] [place] agroaphobia 6-200 ROB. 3357 6 S DANE Erickson [address] [place] [address], [place], [address], [facility], tel: [phone] tel: [phone] 0001 - [facility] Primary Apr-0 [facility], [facility] [place] 7-[address] [facility], [place], [place], [place], [place] [place] [address]. tel: tel: [phone] Family History Family Member Diagnosis Age At Onset Family history of Depression Sister Hypertension Father Sister Hyperlipidemia Family history of Diabetes mellitus Brother Cancer, prostate Mother Sister GERD Sister Migraines Mother heart attack (Cause Of ) Father Cancer, pancreatic (Cause Of ) Immunizations Vaccine Date Status [...] Record Payers Payer name Insurance type Covered alliance party ID Authorization(s) Sonal Ramos [id number] Medicare Mc [id number] Social History Type Description Quantity Date Captured [...] 09/28/2017 Referral Ordered: ordered Referrals: Cardiology. Location: [facility] Cardiology Appointment date/timeframe: 1 Week Referral Referred To: ordered DENIS MAYFIELD MD [address] [facility] [address] [place] [address], [phone] Ordered: Referrals: Hematology/Oncology. DENIS MAYFIELD MD. Follow-up [...] Referred To: ordered [address], [place], [address] [phone] Ordered: VAZQUEZ RANDOLPH. Ophthalmology. Appointment date/timeframe: 10/10/2013 Referral Ordered: ordered Xray Foot complete (Must choose side) Bilateral fore foot Referral Ordered: ordered Hearing Test Complete Appointment date/timeframe: 05/14/2013 Referral Referred To: ordered RANDALL BAILEY [facility] [address] [place], [address] [phone] Ordered: RANDALL BAILEY. Plastic Surgery - Facial. Consult and treat. Appointment date/timeframe: 08/29/2012 Referral Ordered: ordered Screening Mammogram, Bilateral, 2 Views Each Referral Referred To: ordered ADOLFO WINKLER [address] [place], [address] [phone] Ordered: ADOLFO WINKLER. Ophthalmology. Consult and treat. [...] for recheck. Thank you for choosing the [facility] Walk In. We hope that [...] go Related to Elevated liver enzymes to [facility] for testing a=nd possibole treatment. [...] Start cephalexin, on three times Related to [place] infected daily. use a donut cusion around [...] Dr. Mustafa. will follow up attack) with the [facility] issues below. EKG with NSR, confirmed by [...] plenty of Related to Bronchitis fluids, rest. Continue fluoxetine. Related to Depression Continue current dose of thyroid and Related to Hypothyroidism follow up on labs. Will recheck lipid profile today. Related to Mixed Hyperlipidemia Continue atorvastatin. Complete valtrex. we will titrate the Related [...]
--- OUTSIDE RECORDS SUMMARY | 2019-04-08 19:06 | XMS REPORT | Continuity of Care Document ---
:1955 Author Organization 0001 - [facility] Address [address] [place] [id number] Phone Care Team Providers Name Role Phone ROB HUFFMAN MD Unavailable Unavailable Allergies, Adverse Reactions, Alerts Substance Reaction Status chlorpheniramine Active ibuprofen Active PSEUDOEPHEDRINE HCL Active NAPROXEN SODIUM Active meloxicam Active aspirin Unknown Active WARNIN allergy(ies) could not be collected because the type is not supported. [facility] for further details. Medications Medication Instructions Dosage Effective Dates Status Comments (start - stop) Synthroid 175 mcg take 1 tablet - Active tablet (175MCG) by oral route, two days alternating with one day of 150mcg. Synthroid 150 mcg TAKE 1 TABLET BY - Active tablet MOUTH DAILY ALTERNATING WITH 2 DAYS OF 175MCG Augmentin XR 1,000 take 2 tablet by 2.00 tablet - Active mg-62.5 mg oral route every tablet,extended 12 hours at the release start of a meal valacyclovir 1 gram take 1 caplet by 1000 MG - Active tablet ORAL route every 8 hours for 10 days Advair Diskus 250 inhale 1 by Oral [...] day spray,suspension in each nostril as needed Plavix 75 mg tablet take 1 tablet by 75 MG - Active ORAL route every day Ventolin HFA 90 inhale 2 puff by [...] route spray,suspension every day in each nostril Tylenol 325 mg Tab prn - Active Centrum Silver Tab Take one tablet by - Active mouth daily Synthroid 175 mcg take 1 tablet - No Longer tablet (175MCG) by oral Active route, two days alternating with one day of 150mcg. Synthroid 150 mcg TAKE 1 TABLET BY - No Longer tablet MOUTH DAILY Active ALTERNATING WITH 2 DAYS OF 175MCG Problems Condition Effective Dates (start - stop) Clinical Status Acute non-recurrent maxillary sinusitis Elevated liver enzymes Acquired hypothyroidism Mixed dyslipidemia Screening for viral disease Acute maxillary sinusitis, recurrence not specified Abscess Elevated liver enzymes Lyme disease Dark urine Right upper quadrant pain Erythema migrans (Lyme disease) [place] infected Acute pharyngitis, unspecified Toe infection Acute [...] disorder w/o agroaphobia Acute Infection, up respirat, 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 [phone] tel: [phone] 2019 - [facility] Primary [facility] ROB. [address] [place] [address], [facility], [facility], tel: [phone]. [phone] tel: [phone] 2019 - [facility] Primary Good [facility] ROB. [address] [place] [address], [place], [address], [facility], tel: [phone]. [phone] tel: [phone] 0001 - S Primary Acute non-recurrent Dec-1 SKIFF [facility], [facility] [place] maxillary 7 ROB. 33-57 [place] sinusitisElevated 9 S PC Dre [address], enzymesAcquired [facility] hypothyroidismMixed [place], [place], dyslipidemiaScreeni [place], [address], [place] ng for viral [place], tel: disease [phone]. [phone] tel: [phone] 0001 - S Primary Dec-0 [facility]IFF [facility], [facility] 6 ROB. 33-57 [place] 9 S PC Dre [address] [place] [address], [place], [address], [place], tel: [phone]. [phone] tel: [phone] 0001 - S Primary Nov-2 [facility], [facility] 0 ROB. 33-57 [place] 9 S PC Dre [address] [place] [address], [place], [address], [place], tel: [phone]. [phone] tel: [phone] 0001 - S Primary Nov-1 [facility], [facility] ROB. 33-57 [place] 9 S PC Dre [address] [place] [address], [place], [address], [place], tel: [phone]. [phone] tel: [phone] 0001 - S Primary Nov-0 SKIFF S Inc, [facility] ROB. 33-57 [place] 9 S PC Dre [address] [place] [address], [place], [address], [place], tel: [phone]. [phone] tel: [phone] 0001 - S Primary Acute maxillary Oct-2 [facility], [facility] sinusitis, ROB. 33-57 [place] recurrence not [address], [place], [place], [address], [place], tel: [phone]. [phone] tel: [phone] 0001 - S Primary Nov-2 SKIShopping MailS Inc, [facility] ROB. [address], [place], [address], [place], tel: [phone]. [phone] tel: [phone] 0001 - S Primary Nov- SKIisango! S Inc, [facility] ROB. [place] [address], [place], [address], [place], tel: [phone]. [phone] tel: [phone] 0001 - S Walk-In Abscess Sep- CALLE S Inc, [place] 6 [facility]. [place] 9 [address] [place], [address]. [address], [place] tel: tel: [phone] 0001 - S Primary Elevated liver Sep-0 SKIShopping Mail[employer] Inc, [facility] enzymesLyme disease ROB. [address], [place], [address], [facility], tel: [phone]. [phone] tel: [phone] 0001 - S Walk-In Dark urineRight Sep- CARVER S Inc, [place] upper quadrant 2- BEATA. Sameer painErythema 9 44[address] [place] migrans (Lyme [address], disease) [place], [place], [place], [address], [place], tel: [phone]. [phone] tel: [phone] 0001 - S Primary [place] infected [facility], [facility] ROB. [place] [address], [place], [address], [place], tel: [phone]. [phone] tel: [phone] 0001 - S Walk-In Acute pharyngitis, [facility]VER [facility], Center unspecifiedToe BEATA. 3357 [place] infection 9 [address] Dre [place], [place], [place], [address], [place], tel:+ [phone]. [phone] tel: [phone] 0001 - [facility] Walk-In Acute Apr- STEF HO. S Inc, Center conjunctivitis of 4417 33-57 [place] both eyes, 9 Sameer Dre unspecified acute [facility] conjunctivitis [facility] typeSinus [place], [place], [place], [place], [address], [place] [address]. tel:+ tel: [phone] 0001 - [facility] Primary Mar- SKIFF [facility], [facility] ROB. 3[address] [place] 9 S PC Dre [address] [place] [address], [place], [address], [place], tel: [phone]. [phone] tel: [phone] 0001 - [facility] Primary Feb-3 [facility], [facility] ROB. 3357 [place] 9 [facility] PC [address], [place], [address], [place], tel: [phone]. [phone] tel: [phone] 0001 - [facility] Primary Moderate persistent Feb-2 [facility], [facility] asthmatic ROB. 33 [place] bronchitis with 9 [facility] PC Dre [address], [facility] bite of left hand, [place], [place], initial encounter [place], [address], [place] ^Bitten by cat, [place], tel: initial encounter [phone]. [phone] tel: [phone] 0001 - [facility] Primary Bryan-0 [facility], [facility] [place] ROB. 3357 [place] 9 [facility] PC Dre [address] [place] [address], [place], [address], [place], tel: [phone]. [phone] tel: [phone] 0001 - [facility] Primary Acute bronchitis, [facility] Inc, [facility] [place] unspecified ROB. [place] organism 8 S [facility] [address] [place], [place], [place], [address], [facility], tel: [phone]. [phone] tel: [phone] 0001 - [facility] Neuro TIA (transient Sep- MUSTAFA S Inc, Inter Surg ischemic attack) CARMEN. 30 8 [facility], [place], [facility], [place], [place], [place] [address], [place], [place], tel: [phone]. [phone] tel: [phone] 0001 - [facility] Primary Lymphadenitis [facility] Inc, [facility] ROB. [place] 8 S PC Dre [address] [place], [place], [place], [address], [facility], tel: [phone]. [phone] tel: [phone] 2019 - [facility] WS Chest pain, Sep- AHMED S Inc, Cardiology unspecified BOUCHRA. typeMixed 8 [facility] 30 Mckenzie hyperlipidemiaPalpi [facility], tationsPrsnl hx of [facility] TIA (TIA), and [place], [place], cereb infrc w/o 250, [address], [place] [facility] tel: [place], [place], [phone]. tel: [phone] 0001 - [facility] Primary Lymph nodes Sep-0 [facility] Inc, [facility] enlargedTIA ROB. 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 . [place] 8 [facility], [place], [address], [place] tel: [phone] 0001 - [facility] Primary Chest pain, Aug- RISING [facility] Inc, Care [place] unspecified type SYLVAIN. 8 [address] [facility], [place], [place], [address]. [address], [place] tel: tel: [phone] 0001 - [facility] Primary Vascular bruit Dec- SKIFF [facility], [facility] ROB. 33 [place] 7 [facility] PC Dre [address] [place] [address], [place], [place], [place], [address], [place], tel: [phone]. [phone] tel: [phone] 0001 - [facility] Primary Mixed Dec- [facility]IFF [facility], [facility] hyperlipidemiaPostp ROB. 33 [place] rocedural 7 [facility] PC Dre hypothyroidismUnspe [address] [place] [address], cified [facility] sensorineural [place], [place], hearing lossChronic [place], [address], [place] lymphocytic [place], tel: leukemia of B-cell [phone]. [phone] type in tel: remissionBruit [phone] 0001 - [facility] Primary Mixed June-3 [facility]IFF [facility], [facility] hyperlipidemiaHypot 0- ROB. 33 [place] hyroidism, 7 [facility] DANE Erickson unspecified [address] [place] [address], [place], [place], [place], [address], [place], tel: [phone]. [phone] tel: [phone] 0001 - [facility] Primary Tick bite, June-0 [facility], [facility] [place] subsequent ROB. 3357 [place] encounterAching 7 [facility] PC Dre headacheNeck [address] [place] [address], painAcute [facility] left-sided low back [place], [place], pain without [place], [address], [place] sciatica [place], tel: [phone]. [phone] tel: [phone] 0001 - [facility] Primary Acute Aug- SKIFF [facility], [facility] conjunctivitis of ROB. 33 [place] right eye, 6 [facility] PC Dre unspecified acute 119 [facility], conjunctivitis type [place], [place], [address], [place], tel: [phone]. [phone] tel: [phone] 0001 - Encounter for [facility], screening mammogram 0-201 33-57 for high-risk 6 [place], [address], [place] tel: [phone] 0001 - [facility] Primary HivesEncounter for [facility] Inc, [facility] screening mammogram 8-201 ROB. 33-57 [place] for high-risk 6 [facility] PC Dre patientPostprocedur 119 [facility], al [facility] hypothyroidismChron [place], [place], ic lymphocytic [place], [address], [place] leukemia of B-cell [place], tel: type in remission [phone]. [phone] tel: [phone] 0001 - [facility] Primary Acute bronchitis, Feb [facility] Inc, [facility] unspecified 4-201 ROB. 33-57 [place] 6 [facility] PC Dre [address] [place] [address], [place], [place], [place], [address], [place], tel: [phone]. [phone] tel: [phone] 0001 - S Primary Sciatica associated [facility] Inc, [facility] with disorder of 2-201 ROB. 33-57 [place] lumbosacral spine, 6 [facility] PC Dre left [address] [place] [address], [place], [address], [place], tel: [phone]. [phone] tel: [phone] 0001 - [facility] Primary Sciatica associated Feb- [facility] Inc, [facility] with disorder of 8-201 ROB. 33-57 [place] lumbar spine, left 6 [facility] PC Dre [address] [place] [address], [place], [place], [address], [place], tel: [phone]. [phone] tel: [phone] 0001 - [facility] Primary Sciatica associated Feb- [facility], [facility] with disorder of 4-201 ROB. 33-57 [place] lumbar spine, left 6 [facility] PC Dre [address] [place] [address], [place], [address], [place], tel: [phone]. [phone] tel: [phone] 0001 - [facility] Primary Acute maxillary Dec-2 SKIFF S Inc, [facility] [place] sinusitis, 3 ROB. 3357 [place] recurrence not 5 [facility] Dre [address], [place], [address], [place], tel: [phone]. [phone] tel: [phone] 0001 - S Primary Acute maxillary Oct-0 EZRA S Inc, [facility] [place] sinusitis, LAURA. recurrence not 5 [address] [facility] Dre [place], [place], [place], [address], [place], tel: [phone]. [phone] tel: [phone] 0001 - [facility] GI Neop, bng, large Sep- MOUNA S Inc, intestineFamily MEGAN. 40 3357 History, Other [address], [place], Floor 3, [place], [place], [place], [address], [place] [address]. tel: tel: [phone] 0001 - S Primary Bronchitis Carloz-0 [facility] Inc, [facility] [place] ROB. 33 [place] [address], [place], [address], [place], tel: [phone]. [phone] tel: [phone] 0001 - S Primary HypothyroidismMixed [facility] Inc, [facility] [place] HyperlipidemiaDepre ROB. 3357 [place] ssion [address], [place], [address], [place], tel: [phone]. [phone] tel: [phone] 0001 - S Primary Hypothyroidism, [facility] Inc, [facility] [place] postsurgicalMixed 9 ORB. 33 [place] HyperlipidemiaThera 5 [facility] Dre peutic Drug [address] [place] [address], [place], [place], [place], [address], [place], tel: [phone]. [phone] tel: [phone] 0001 - [facility] Primary Zoster ocular Sep-1 SKIFF S Inc, [facility] [place] disease 2- ROB. [place] 4 [facility] [address], [place], [address], [place], tel: [phone]. [phone] tel: [phone] 0001 - [facility] Primary Zoster ocular Sep-0 SKIFF S Inc, [facility] disease 3- ROB. 57 [place] [address], [place], [address], [place], tel: [phone]. [phone] tel: [phone] 0001 - [facility] Primary Aug-2 [facility] Inc, [facility] ROB. [place] 4 [facility] [address], [place], [address], [place], tel: [phone]. [phone] tel: [phone] 0001 - [facility] Primary Asthma, intrinsic Carloz-0 SKIFF S Inc, [facility] w/o status 2- ROB. [place] asthmaticusFoot 4 [facility] Dre pain [address] [place] [address], [place], [address], [place], tel: [phone]. [phone] tel: [phone] 0001 - [facility] Primary Acute upper Mar-2 SKIFF Referring [facility] Inc, [facility] respiratory ROB. Provider: 33 [place] infectionBronchitis 4 [facility] ROB Erickson Hearing loss 119 [facility], [facility], , 119 [facility], [place], [place], [place], [place] [address], [place], [place], tel: [address]. [place], [phone]. [phone] tel: tel: [phone] 0001 - S Primary Upper Respiratory SCHECTER Referring S Inc, [facility] [place] Infection, Acute ISAAK. Provider: 3 4417 ISAAK Erickson [facility], [address]kw[address], [address] [place], [place], [place], [facility], [address], [place], [place], tel: [address]. [place], [address]. [id number] tel: tel: [phone] 0001 - S Primary Mixed Sep-0 SKIFF S Inc, [facility] [place] HyperlipidemiaThera ROB. [place] peutic Drug 3 S PC Mckenzie MonitoringVitamin D [address] [place] [address], [place], [address], [place], tel: [phone]. [phone] tel: [phone] 0001 - [facility] Follow-up [facility] Inc, ENT/Facial examination, after RANDALL. 30 Plastic surgery 3 [facility] NOSSensorineMountain [facility] Regional [facility], [facility], Hearing Loss, NOS [facility], [place], [place], [place], [address], [place] [address]. tel: tel: [phone] 0001 - [facility] Neop, bng, [facility] Referring S Inc, ENT/Facial scalp/skin, neck RANDALL. 30 Provider: Plastic 3 [facility], [facility], [address], [place], [place], [place], [place], [facility], [address], [place] [address]. [place] tel: tel: [place], [place], [phone] [address]. tel:[phone] 0001 - S Primary Sprain/strain, SKIFF S Inc, [facility] [place] hip/thigh NECNeop, ROB. [place] UB, skin 3 S PC Dre [address] [place] [address], [place], [address], [place], tel: [phone]. [phone] tel: [phone] 0001 - S Primary Muscle strain of Aug- SKI Referring S Inc, [facility] gluteal region ROB. Provider: [place] 3 S PC ROB Erickson [address] [place] [address] Street, , [address], [place], [place], [place], [place] [address], [place], [place], tel: [phone]. [place], [phone]. [id number] tel: tel:[phone] 0001 - S Primary Mixed Sep- [facility] Inc, [facility] HyperlipidemiaHypot ROB. [place] hyroidism, 2 [facility] DANE Erickson postsurgicalMixed [address] [place] [address], [facility], [place], [place], postsurgical [place], [address], [place], tel: [phone]. [phone] tel: [phone] 0001 - S Primary Mixed May- [facility] Inc, [facility] HyperlipidemiaHypot ROB. [place] hyroidism, 2 [facility] DANE Erickson postsurgicalMixed [address] [place] [address], Hyperlipidemia [place], [place], [place], [address], [place], tel: [phone]. [phone] tel: [phone] 0001 - [facility] Primary Upper Respiratory Feb- [facility] Inc, [facility] Infection, ROB. [place] AcuteMixed 2 S Dre HyperlipidemiaHypot [address] [place] [address], [facility], [facility] postsurgicalUpper [place], [place], Respiratory [place], [address], [place] Infection, [place], tel: AcuteMixed [phone]. [phone] HyperlipidemiaHypot tel: hyroidism, [phone] postsurgical 0001 - [facility] Primary Therapeutic Drug Mar-3 [facility] Inc, [facility] MonitoringBronchiti ROB. [place] s, Acute 1 [facility] DANE Erickson [address] [place] [address], St, [place], [place], [place], [address], [facility], tel: [phone]. [phone] tel: [phone] 0001 - [facility] Primary Bronchitis, Acute Apr- SKIFF S Inc, [facility] [place] ROB. [address] [place] [address], [place], [address], [facility], tel: [phone]. [phone] tel: [phone] 0001 - S Primary Bronchitis, Acute Nov- SKIFF S Inc, [facility] ROB. 33-57 [place] [address], [place], [address], [facility], tel: [phone]. [phone] tel: [phone] 0001 - [facility] Primary Upper Respiratory Nov- [facility] Referring S Inc, [facility] Infection, Acute ROB. Provider: [place] 0 [facility] ROB [address], [address], [facility] [address], [facility], [place], tel: [address]. [place], [address]. [phone] tel: tel: [phone] 0001 - [facility] Primary Conjunctivitis May- [facility] Referring S Inc, [facility] NOSSinusitis, Acute ROB. Provider: [place] 0 [facility] ROB Erickson [address] [place] [address], [address], [facility] [address], [facility], [place], tel: [address]. [place], [phone]. [id number] tel: tel: [phone] 0001 - [facility] Primary Sinusitis, Feb-2 SKIFF S Inc, [facility] AcuteDepression ROB. 33-57 [place] [address], [place], [place], [facility] [address], [facility], tel:[phone]. [phone] tel: [phone] 0001 - S Primary Disturbance, visual Bryan-0 SKIFF S Inc, [facility] [place] NECDisturbance, 6-201 ROB. [place] visual NECDisorder, 0 S PC Dre depressive [address] [place] [address], NECLeukemia, [facility] chronic lymphoid, [place], [place], in [place], [address], [place] remissionFailure, [place], tel: postablative [phone]. [phone] ovarian tel: [phone] 0001 - S Primary Incontinence, Nov-1 SKIFF S Inc, [facility] [place] mixed, 1-200 ROB. urge/stressAsthma, 8 S PC Dre intrinsic w/o [address] [place] [address], status [facility] asthmaticusAsthma, [place], [place], intrinsic w/o [place], [address], [place] status [place], tel: asthmaticusDisorder [phone]. [phone] , depressive tel: NECHypothyroidism, [phone] postsurgical 0001 - S Primary Incontinence, Nov-0 SKIFF S Inc, [facility] [place] mixed, urge/stress 4-200 ROB. [facility] PC Dre [address] [place] [address], [place], [place], [place], [facility], [place], tel: [phone]. [phone] tel: [phone] 0001 - S Primary Sinusitis, acute Nov-2 TERESA Referring S Inc, [facility] [place] maxillary 4-200 ELIZABET. Provider: 54 [facility], [facility], [place], [place], [address] [place], [address]. [place], [address], [place]: [place], [address]. tel: [phone] tel:[phone] 0001 - S Primary Sinusitis, acute June-3 [facility] Referring S Inc, Care [place] NOS 0-200 ROB. Provider: [place] 8 S ROB Erickson [address] [place] [address], [facility], PC [address] [place], [place] [address], [place], [place] [address], [facility], tel: [address]. [place], [address]. 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 Provider: 33 sites, acute NOS 8 [facility] ROB Erickson [address] [place] [address], [address], [place], [place], [place] [address], [facility], tel: [address]. [place], [phone]. [phone] tel: tel: [phone] 0001 - [facility] Primary Sciatica Bryan-2 [facility] Inc, [facility] [place] 2-200 ROB. 33 8 [facility] Dre [address] [place] [address], [place] [address], [facility], tel: [phone]. [phone] tel: [phone] 0001 - [facility] Primary Sinusitis, acute Apr-2 SKIFF Referring S Inc, [facility] [place] NOS 3-200 ROB. Provider: 33 7 [facility] ROB Erickson [address] [place] [address], [address], [place] [address], [facility], tel: [address]. [place], [address]. [id number] tel: tel: [phone] 0001 - [facility] Primary Bronchitis, Mar-0 SKIFF S Inc, [facility] [place] acuteLeukemia, 6-200 ROB. 33 chronic lymphoid, 7 [facility] Dre in [address] [place] [address], remissionLeukemia, [facility] chronic lymphoid, [place], [place], in remission [place] [address], [facility], tel: [phone]. [phone] tel: [phone] 0001 - [facility] Primary Dec-2 TERESA Referring S Inc, [facility] [place] 6-200 ELIZABET. Provider: 33 6 [address] [facility], TERESA, Street, [place], [address] [place], [address]. [place], [address], [place] tel:+ [place], [address]. tel: [phone] tel: [phone] 0001 - [facility] Primary Nov-0 [facility] [place] 9-200 ROB. Provider: 6 [facility] ROB Erickson [address] [place] [address], , [address], [place], [place], [place] [address], [facility], [place], tel: [address]. [place], [address]. [id number] tel: tel: [phone] 0001 - [facility] Primary Reflux, esophageal Nov-2 [facility] [facility], [facility] [place] 4-200 ROB. 6 [facility] Dre [address] [place] [address], [place], [address], [facility], tel: [phone] tel: [phone] - [facility] Primary Leukemia, chronic Nov- [facility], [facility] [place] lymphoid, in 0-200 ROB. remissionSinusitis, 6 [facility] Dre acute NOS [address] [place] [address], [place], [address], [place], tel: [phone] tel: [phone] - [facility] Primary Hypothyroidism, Apr-0 [facility], [facility] [place] postsurgicalHyperli 3-200 ROB. pidemia, 6 [facility] Dre mixedAsthma, [address] [place] [address], intrinsic w/o [place], [place], asthmaticusMigraine [place], [facility], , classical w/o [place], tel: intractable [phone] migraine tel: [phone] - [facility] Primary Panic disorder w/o Mar- [facility], [facility] [place] agroaphobia 6-200 ROB. 6 [facility] Dre [address] [place] [address], [place], [place], [address], [facility], tel: [phone] tel: [phone] [facility] - [facility] Primary Apr-0 [facility]200 LASHONDA. [phone] [facility] [place], [address], [address]. tel: tel: [phone] Family History Family Member Diagnosis Age At [...] Covered alliance party ID Authorization(s) Sonal Ramos [id number] Medicare Mc [id number] Social History Type Description Quantity Date Captured [...] 09/28/2017 Referral Ordered: ordered Referrals: Cardiology. Location: [facility] Cardiology Appointment date/timeframe: 1 Week Referral Referred To: ordered DENIS MAYFIELD MD [address] [facility] [address] [place], [address] [phone] Ordered: Referrals: Hematology/Oncology. DENIS MAYFIELD MD. Follow-up [...] 06/27/2015 Referral Referred To: ordered [address] [place], [address] [phone] Ordered: VAZQUEZ RANDOLPH. Ophthalmology. Appointment date/timeframe: 10/10/2013 Referral Ordered: ordered Xray Foot complete (Must choose side) Bilateral fore foot Referral Ordered: ordered Hearing Test Complete Appointment date/timeframe: 05/14/2013 Referral Referred To: ordered RANDALL BAILEY [facility] [address], [address] [phone] Ordered: RANDALL BAILEY. Plastic Surgery - Facial. Consult and treat. Appointment date/timeframe: 08/29/2012 Referral Ordered: ordered Screening Mammogram, Bilateral, 2 Views Each Referral Referred To: ordered ADOLFO WINKLER [address] [place], [address] [phone] Ordered: ADOLFO WINKLER. Ophthalmology. Consult and treat. Appointment date/timeframe: 02/13/2009 Appointment EDANNA SALMON Type Problem Goal Intervention Status Start Date Unknown History Of Present Illness Encounter Date Complaint History Of Present Illness No information Functional Status Encounter Date Functional Assessment Cognitive Assessment Unknown Medications Administered Medication Instructions Dosage Effective Dates (start - stop) Status Comments Drug Treatment Unknown Instructions Date Instruction Additional Information Wll recheck liver enzymes Related to Elevated [...] for recheck. Thank you for choosing the [facility] Walk In. We hope that you will [...] go Related to Elevated liver enzymes to [facility] for testing a=nd possibole treatment. [...] Start cephalexin, on three times Related to [place] infected daily. use a donut cusion around [...] Dr. Mustafa. will follow up attack) with [facility] issues below. EKG with NSR, confirmed by Dr. Mcfadden, Related to Chest pain, unspecified Due to [...]
--- OUTSIDE RECORDS SUMMARY | 2019-04-08 19:06 | XMS REPORT | Continuity of Care Document ---
:1955 Author Organization 0001 - S [facility] Address [address] [place] [address] Phone Care Team Providers Name Role Phone ROB HUFFMAN MD Unavailable Unavailable Allergies, Adverse Reactions, Alerts Substance Reaction Status chlorpheniramine Active ibuprofen Active PSEUDOEPHEDRINE HCL Active NAPROXEN SODIUM Active meloxicam Active aspirin Unknown Active WARNIN allergy(ies) could not be collected because the type is not supported. [facility] further details. Medications Medication Instructions Dosage Effective Dates Status Comments (start - stop) valacyclovir 1 gram take 1 caplet by 1000 MG - Active tablet ORAL route every 8 hours for 10 days Synthroid 175 mcg take 1 tablet - [...] at the release start of a meal Advair Diskus 250 inhale 1 by Oral [...] one tablet by - Active mouth daily valacyclovir 1 gram take 1 caplet by 1000 MG - No Longer tablet ORAL route every Active 8 hours for 10 days Synthroid 175 mcg take 1 tablet - [...] upper quadrant pain Erythema migrans (Lyme disease) [place] infected Acute pharyngitis, unspecified Toe infection Acute [...] disorder w/o agroaphobia Acute Infection, up respirat, management aide sites, Asymptomatic acute NOS Therapeutic Drug Monitoring [...] Description For Visit Copied on Encounter 2019 [facility] [address] [place] [address], [facility], tel: [phone] tel: [phone] 2019 [facility] Primary [facility] [address] [place] [address] [place] [address], [facility], tel: [phone]. [phone] tel: [phone] 2019 [facility] Primary [facility] [address] [place] [address] [place], [place], [address], [place], tel: [phone]. [phone] tel: [phone] 0001 - [facility] WS Dec-2 AHMED S Inc, Cardiology 3 BOUCHRA. -57 9 S 30 [facility], [place], [place], 250, [address], [facility] tel: [place], [place], [phone]. tel: [phone] 0001 - [facility] Primary Acute non-recurrent Dec- SKIFF S Inc, Care [place] maxillary 7 ROB. [address] [place] sinusitisElevated [address], enzymesAcquired [facility] hypothyroidismMixed [place], [place], dyslipidemiaScreeni [place], [address], [place] ng for viral [place], tel: disease [phone]. [phone] tel: [phone] 0001 - [facility] Primary Dec-0 SKIFF S Inc, [facility] 6 ROB. [place] [address], [place], [place], [address], [place], tel: [phone]. [phone] tel: [phone] 0001 - [facility] Primary Nov-2 [facility], [facility] 0 ROB. [address] [place] [address], [place], [address], [place], tel: [phone]. [phone] tel: [phone] 0001 - [facility] Primary Nov-1 [facility], [facility] ROB. [address] [place] [address], [place], [address], [place], tel: [phone]. [phone] tel: [phone] 2019 - [facility] Primary Nov-0 [facility] Inc, [facility] ROB. [address] [place] [address], [place], [place], [address], [place], tel: [phone]. [phone] tel: [phone] 0001 - S Primary Acute maxillary Oct-2 SKIFF S Inc, [facility] sinusitis, ROB. [place] recurrence not [address], [place], [address], [place], tel: [phone]. [phone] tel: [phone] 0001 - S Primary Oct-2 SKIFF S Inc, [facility] ROB. [place] [address], [place], [address], [facility], tel: [phone]. [phone] tel: [phone] 0001 - S Primary Oct-0 [facility], [facility] ROB. [place] [address], [place], [address], [place], tel: [phone]. [phone] tel: [phone] 0001 - S Walk-In Abscess Aug-2 CALLE S Inc, Center 6 [facility]. Sameer [address] [place], [address]. [address], [place] tel: tel: [phone] 0001 - S Primary Elevated liver Sep-0 SKIFF S Inc, [facility] enzymesLyme disease ROB. [place] [address], [place], [address], [place], tel: [phone]. [phone] tel: [phone] 0001 - S Walk-In Dark urineRight Sep-0 CARVER S Inc, Center upper quadrant 2-201 BEATA. Sameer painErythema 9 4417 Dre migrans (Lyme [address], disease) [place], [place], [place], [address], [place], tel:+ [phone]. [phone] tel: [phone] 0001 - S Primary [place] infected Carloz- SKIFF S Inc, Care [place] ROB. [address] [place] 9 [facility] PC Dre [address] [place] [address], [place], [place], [address], [place], tel: [phone]. [phone] tel: [phone] 0001 - S Walk-In Acute pharyngitis, CARVER S Inc, Center unspecifiedToe BEATA. 3357 [place] infection 9 [address] [place], [place], [place], [address], [place], tel: [phone]. [phone] tel: [phone] 0001 - [facility] Walk-In Acute Apr- STEF HO. S Inc, Center conjunctivitis of [facility] -57 Sameer both eyes, 9 Sameer [place] unspecified acute [facility] conjunctivitis [facility] typeSinus Sameer, [place], [place], [address], [place] [address]. tel: tel: [phone] 0001 - S Primary Mar- SKIFF S Inc, [facility] ROB. [address] [place] 9 [facility] PC Dre [address] [place] [address], [place], [address], [place], tel: [phone]. [phone] tel: [phone] 0001 - S Primary Feb- SKIFF S Inc, [facility] ROB. [address] [place] 9 [facility] PC Dre [address] [place] [address], [place], [place], [address], [place], tel: [phone]. [phone] tel: [phone] 0001 - S Primary Moderate persistent Feb- SKIFF S Inc, [facility] asthmatic ROB. [address] [place] bronchitis with 9 [facility] PC Dre acute [address] [place] [address], [facility] bite of left hand, [place], [place], initial encounter [place], [address], [place] ^Bitten by cat, [place], tel: initial encounter [phone]. [phone] tel: [phone] 0001 - [facility] Primary Bryan- SKIFF S Inc, [facility] [place] . [place] 9 [facility] PC [address], [place], [address], [facility], tel: [phone]. [phone] tel: [phone] 0001 - S Primary Acute bronchitis, SKIFF S Inc, [facility] [place] unspecified ROB. [place] organism [address], [place], [address], [facility], tel: [phone]. [phone] tel: [phone] 0001 - [facility] Neuro TIA (transient MUSTAFA S Inc, Inter Surg ischemic attack) CARMEN. 8 [facility], [address], [place] [address], [place], [place], tel: [phone]. [phone] tel: [phone] 0001 - S Primary Lymphadenitis [facility] Inc, [facility] ROB. [place] 8 [facility] PC [address], [place], [address], [facility], tel: [phone]. [phone] tel: [phone] 0001 - [facility] WS Chest pain, AHMED S Inc, Cardiology unspecified BOUCHRA. typeMixed 8 S 30 [place] hyperlipidemiaPalpi [facility], tationsPrsnl hx of [facility] TIA (TIA), and [place], [place], cereb infrc w/o 250, [address], [facility] tel: [place], [place], [phone]. tel: [phone] 0001 - S Primary Lymph nodes Sep- SKIFF S Inc, [facility] enlargedTIA ROB. 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 [phone] mammogram for tel: breast cancer [phone] 0001 - S Primary Aug-0 SUGAR COATING HAND [facility] Inc, Care [place] CARE. . [place] 8 [place], [address], [place] tel: [phone] 0001 - S Primary Chest pain, Aug- RISING S Inc, Care [place] unspecified type SYLVAIN. 8 [address] [facility], [place], [address]. [address], [place] tel: tel: [phone] 0001 - S Primary Vascular bruit Dec- SKIFF S Inc, [facility] ROB. [place] 7 S PC Dre [address] [place], [place], [place], [address], [facility], tel: [phone]. [phone] tel: [phone] 0001 - S Primary Mixed Dec- SKIFF S Inc, [facility] hyperlipidemiaPostp ROB. [place] rocedural 7 [facility] PC Dre hypothyroidismUnspe 119 [facility], cified [facility] sensorineural [place], [place], hearing lossChronic [place], [address], [place] lymphocytic [place], tel: leukemia of B-cell [phone]. [phone] type in tel: remissionBruit [phone] 0001 - S Primary Mixed June-3 SKIFF S Inc, [facility] hyperlipidemiaHypot ROB. [place] hyroidism, 7 S PC Dre unspecified [address] [place], [place], [place], [address], [place], tel: [phone]. [phone] tel: [phone] 0001 - S Primary Tick bite, June-0 SKIFF S Inc, [facility] [place] subsequent ROB. [place] encounterAching 7 S PC Dre headacheNeck 119 [facility], painAcute [facility] left-sided low back [place], [place], pain without [place], [address], [place] sciatica [place], tel: [phone]. [phone] tel: [phone] 0001 - S Primary Acute Aug- [facility], [facility] conjunctivitis of ROB. [place] right eye, 6 S PC Dre unspecified acute 119 [facility], conjunctivitis type [place], [place], [address], [place], tel: [phone]. [phone] tel: [phone] 0001 - Encounter for S Inc, screening mammogram 0 for high-risk 6 [place], [address], [place] tel: [phone] 0001 - [facility] Primary HivesEncounter for [facility] Inc, [facility] screening mammogram ROB. [place] for high-risk 6 [facility] DANE Erickson patientPostprocedur 119 [facility], al [facility] hypothyroidismChron [place], [place], ic lymphocytic [place], [address], [place] leukemia of B-cell [place], tel: type in remission [phone]. [phone] tel: [phone] 0001 - [facility] Primary Acute bronchitis, Feb- [facility] Inc, [facility] unspecified ROB. [place] 6 [facility] PC Dre [address] [place] [address], [place], [place], [address], [place], tel: [phone]. [phone] tel: [phone] 0001 - S Primary Sciatica associated SKIFF S Inc, [facility] with disorder of ROB. [place] lumbosacral spine, 6 [facility] PC Dre left [address] [place] [address], [place], [place], [address], [place], tel: [phone]. [phone] tel: [phone] 0001 - S Primary Sciatica associated Bryan-0 SKIFF S Inc, [facility] with disorder of 8-201 ROB. [address] [place] lumbar spine, left 6 [address] [place] [address], [place], [place], [place], [address], [place], tel: [phone]. [phone] tel: [phone] 0001 - S Primary Sciatica associated Bryan-0 [facility], [facility] with disorder of 4-201 ROB. 33[address]57 [place] lumbar spine, left 6 [facility] [address] [place] [address], , [place], [place], [place], [address], [place], tel: [phone]. [phone] tel: [phone] 0001 - S Primary Acute maxillary Dec-2 SKIFF [facility] Inc, [facility] sinusitis, 3-201 ROB. 33[address]57 [place] recurrence not [address], [place], [address], [place], tel: [phone]. [phone] tel: [phone] 0001 - S Primary Acute maxillary Oct-0 EZRA S Inc, [facility] sinusitis, 1 LAURA. 3357 recurrence not 5 498 [facility], [place], [place], [place], [address], [place], tel: [phone]. [phone] tel: [phone] 0001 - [facility] Neop, bng, large Aug-3 MOUNA S Inc, intestineFamily 1 MEGAN. 40 33-57 History, Other 5 [facility] [address], Street, Floor 3, [place], [place], [place], [address], [place] [address]. tel: tel: [phone] 0001 - [facility] Primary Bronchitis Carloz-0 SKIFF [facility] Inc, [facility] 9-201 ROB. 33-57 [place] 5 [facility] [address] [place] [address], , [place], [place], [place], [address], [place], tel: [phone]. [phone] tel: [phone] 0001 - S Primary HypothyroidismMixed Bryan-2 [facility], [facility] [place] HyperlipidemiaDepre 8- ROB. [address]57 [place] ssion 5 S [facility] [address] [place] [address], [place], [address], [place], tel:+ [phone]. [phone] tel: [phone] 0001 - S Primary Hypothyroidism, Bryan- [facility] Inc, [facility] postsurgicalMixed 9- ROB. 33[address]57 [place] HyperlipidemiaThera 5 S [facility] peutic Drug [address] [place] [address], [place], [place], [address], [place], tel:[phone]. [phone] tel: [phone] 0001 - S Primary Zoster ocular Sep-1 [facility], [facility] disease 2- ROB. [address] [place] [address], [place], [address], [place], tel:[phone]. [phone] tel: [phone] 0001 - S Primary Zoster ocular Sep-0 [facility] Inc, [facility] disease 3- ROB. 33[address]57 [place] [address], [place], [address], [place], tel: [phone]. [phone] tel: [phone] 0001 - S Primary Aug-2 [facility] [employer]S Inc, [facility] 5- ROB. 33[address]57 [place] [address], [place], [address], [place], tel:[phone]. [phone] tel: [phone] 0001 - S Primary Asthma, intrinsic Carloz-0 [facility] [employer] Inc, [facility] w/o status 2-201 ROB. 33[address]57 [place] asthmaticusFoot [address], [place], [address], [place], tel:[phone]. [phone] tel:[phone] 0001 - [facility] Primary Acute upper Mar-2 SKIFF Referring [facility] Inc, Care [place] respiratory ROB. Provider: 33-57 [place] infectionBronchitis 4 [facility] DANE RIVAS Dre Hearing loss 119 [facility], [facility], St, PC 119 [facility], [place], [place], [facility] [address], [place], [place], tel: [address]. [place], [phone]. [id number] tel: tel: [phone] 0001 - [facility] Primary Upper Respiratory Nov- SCHECTER Referring [facility], Care [place] Infection, Acute ISAAK. Provider: 57 3 4417 ISAAK Erickson [facility], [facility], [address] [place] [address], [place], [facility], [address], [place], [place], tel: [address]. [place], [phone]. [phone] tel: tel: [phone] [address] [place] [address] Primary Mixed Sep-0 SKIFF S Inc, Care [place] HyperlipidemiaThera 3 ROB. - James[place] peutic Drug 3 [facility] DANE [place]lejoon MonitoringVitamin D 119 [place], [place], [place], [address], [place], tel: [phone]. [phone] tel: [phone] [address] [place] [address] Follow-up Aug- [facility] Inc, ENT/Facial examination, after RANDALL. 30 Plastic surgery 3 [facility] Surgery NOSSensorineural [facility], Hearing Loss, NOS 355, [place], [place], [place], [address], [place] [address]. tel: tel: [phone] [address] [place] [address] Neop, bng, Aug- LYNN Referring S Inc, ENT/Facial scalp/skin, neck - RANDALL. 30 Provider: 33-57 Plastic 3 Dre [facility], [facility], [address], 355, [place], [place], [place], [place], [facility], [address], [place] [address] tel: tel: [place], [place], [phone] [address]. tel:[phone] 0001 - S Primary Sprain/strain, SKIFF S Inc, [facility] hip/thigh NECNeop, ROB. [place] UB, skin 3 S PC Dre [address] [place] [address], [place], [address], [place], tel: [phone]. [phone] tel: [phone] 0001 - S Primary Muscle strain of [facility] Referring [facility] Inc, [facility] gluteal region ROB. Provider: [place] 3 S PC ROB Erickson [address] [place] [address], [address], [place], [place], [facility] [address], [facility], [place], tel: [phone]. [place], [phone]. [phone] tel: tel: [phone] 0001 - S Primary Mixed Aug- SKIFF [facility] Inc, [facility] HyperlipidemiaHypot ROB. [place] hyroidism, 2 [facility] PC Dre postsurgicalMixed [address] [place] [address], HyperlipidemiaHyCarteret Health Care [facility], [place], [place], postsurgical [place], [address], [place], tel: [phone]. [phone] tel: [phone] 0001 - S Primary Mixed Apr- [facility] Inc, [facility] HyperlipidemiaHypot ROB. [place] hyroidism, 2 [facility] PC Dre postsurgicalMixed [address] [place] [address], Hyperlipidemia [place], [place], [address], [place], tel: [phone]. [phone] tel: [phone] 0001 - S Primary Upper Respiratory Feb- SKIFF S Inc, [facility] [place] Infection, ROB. [place] AcuteMixed 2 S PC Dre HyperlipidemiaHypot [address] [place] [address] hyroidformerly [facility] postsurgicalUpper [place], [place], Respiratory [place], [address], [place] Infection, [place], tel: AcuteMixed [phone]. [phone] HyperlipidemiaHypot tel: hyroidism, [phone] postsurgical 0001 - [facility] Primary Therapeutic Drug Mar-3 SKIFF S Inc, Care [place] MonitoringBronchiti - ROB. 33-57 [place] s, Acute 1 S PC [address], [place], [address], [place], tel: [phone]. [phone] tel: [phone] 0001 - S Primary Bronchitis, Acute Apr-1 SKIFF S Inc, [facility] ROB. 33-57 [place] [address], [place], [address], [place], tel: [phone]. [phone] tel: [phone] 0001 - S Primary Bronchitis, Acute Nov-2 [facility] Inc, [facility] ROB. 33-[address] [place] [address], [place], [address], [place], tel: [phone]. [phone] tel: [phone] 0001 - S Primary Upper Respiratory Nov- SKIFF Referring S Inc, [facility] Infection, Acute ROB. Provider: 33-57 [place] 0 [facility] ROB [place], [address], [facility] [address], [place], [place], tel: [address]. [place], [phone]. [phone] tel: tel:[phone] 0001 - S Primary Conjunctivitis Apr-2 SKIFF Referring S Inc, [facility] NOSSinusitis, Acute ROB. Provider: 33-57 [place] 0 S ROB [address], [address], [place], [place] [address], [place], [place], tel:[phone] [address]. [place], [phone]. [id number] tel: tel:[phone] 0001 - [facility] Primary Sinusitis, Fe- [facility] Inc, Care [place] AcuteDepression - ROB. 33 [place] 0 [facility] PC Dre [address] [place] [address], [place], [place], [place], [address], [facility], tel: [phone]. [phone] tel: [phone] 0001 - [facility] Primary Disturbance, visual Bryan-0 [facility] Inc, [facility] [place] NECDisturbance, ROB. 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 [phone] ovarian tel: [phone] 0001 - [facility] Primary Incontinence, [facility] Inc, [place] mixed, 1- ROB. urge/stressAsthma, 8 [facility] PC Dre intrinsic w/o [address] [place] [address], status [facility] asthmaticusAsthma, [place], [place], intrinsic w/o [place], [address], [place] status [place], tel: asthmaticusDisorder [phone]. [phone] , depressive tel: NECHypothyroidism, [phone] postsurgical 0001 - S Primary Incontinence, Nov- [facility] Inc, Care [place] mixed, urge/stress 4-200 ROB. 8 [facility] PC Dre [address] [place] [address], [place], [place], [address], [place], tel: [phone]. [phone] tel: [phone] 0001 - S Primary Sinusitis, acute [facility] Inc, [facility] [place] maxillary 4-200 ELIZABET. Provider: 8 54 [facility], [facility], Jesse, [address] [place] [address], [address]. [place], [address], tel:+ [place], [address]. tel: [phone] tel: [phone] 0001 - [facility] Primary Sinusitis, acute May-3 SKIFF Referring S [facility], Care [place] NOS 0-200 ROB. Provider: [address] 8 [facility] ROB Erickson [address] [place] [address], [address], [place], [place], [place] [address], [facility], tel: [address]. [place], [address]. [id number] tel: tel: [phone] 0001 - [facility] Primary Infection, up May-2 SKIFF Referring S Inc, [facility] [place] respirat, management aide 7-200 ROB. Provider: 3357 sites, acute NOS 8 [facility] ROB Erickson [address] [place] [address], [address], [place] [address], [facility], tel: [address]. [place], [address]. [id number] tel: tel: [phone] 0001 - [facility] Primary Sciatica Bryan-2 SKIFF S Inc, Care [place] 2-200 ROB. 8 [facility] Dre [address] [place] [address], [place], [place], [place] [address], [facility], tel: [phone]. [phone] tel: [phone] 0001 - [facility] Primary Sinusitis, acute Apr-2 SKIFF Referring S Inc, Care [place] NOS 3-200 ROB. Provider: 33 7 [facility] ROB Erickson [address] [place] [address], [address], [facility] [address], [facility], tel: [address]. [place], [address]. [id number] tel: tel: [phone] 0001 - [facility] Primary Bronchitis, Mar-0 SKIFF S Inc, Care [place] acuteLeukemia, 6-200 ROB. 33-57 chronic lymphoid, 7 S Dre in [address] [place] [address], remissionLeukemia, [facility] chronic lymphoid, [place], [place], in remission [place] [address], [facility], tel: [phone]. [phone] tel: [phone] 0001 - S Primary Dec-2 TERESA Referring S Inc, Care [place] 6-200 ELIZABET. Provider: 33-57 6 54 [facility] , [facility], Street, [place], [address] [place], [address]. [place], [address], [place] tel:+ [place], [address]. tel: [phone] tel: [phone] 0001 - S Primary Nov-0 SKIFF Referring S Inc, Care [place] 9-200 ROB. Provider: 33-57 6 [facility] ROB Erickson [address] [place] [address], [address], [place] [address], [facility], [place], tel: [address]. [place], [address]. [phone] tel: tel: [phone] 0001 - [facility] Primary Reflux, esophageal Oct-2 [facility] Inc, Care [place] 4-200 ROB. 33-57 6 S DANE Erickson [address] [place] [address], [place], [address], [facility], tel: [phone]. [phone] tel: [phone] 0001 - S Primary Leukemia, chronic Oct-1 [facility] Inc, Care [place] lymphoid, in 0-200 ROB. 33-57 remissionSinusitis, 6 [facility] Dre acute NOS [address] [place] [address], [place], [address], [facility], tel: [phone]. [phone] tel: [phone] 0001 - [facility] Primary Hypothyroidism, Apr-0 [facility] Inc, Care [place] postsurgicalHyperli 3-200 ROB. 33-57 pidemia, 6 [facility] Dre mixedAsthma, 119 [facility], intrinsic w/o , [place] status [place], [place], asthmaticusMigraine [place], [address], [place] , classical w/o [place], tel: intractable [phone]. [phone] migraine tel: [phone] 0001 - [facility] Primary Panic disorder w/o Mar- SKIFF S Inc, Care [place] agroaphobia 6-200 ROB. 3357 6 [facility] PC Dre 119 [facility], , [place], [place], [place], [address], [place], tel: [phone]. [phone] tel: [phone] 2019 - [facility] Primary Apr-0 MCFADDEN S Inc, Care [place] 7-200 LASHONDA. 3357 5 54 [facility], [place], [place], [address], [place] [address]. tel: tel: [phone] Family History Family Member Diagnosis Age At [...] Record Payers Payer name Insurance type Covered libertarian ID Authorization(s) Sonal Ramos [id number] Social History Type Description Quantity Date Captured [...] 09/28/2017 Referral Ordered: ordered Referrals: Cardiology. Location: [facility] Cardiology Appointment date/timeframe: 1 Week Referral Referred To: ordered DENIS MAYFIELD MD [address] [facility] [address] [place], [address] [phone] Ordered: Referrals: Hematology/Oncology. DENIS MAYFIELD MD. Follow-up [...] 06/27/2015 Referral Referred To: ordered VAZQUEZ RANDOLPH [address] [place] [address], [id number] [phone] Ordered: VAZQUEZ RANDOLPH. Ophthalmology. Appointment date/timeframe: 10/10/2013 Referral Ordered: ordered Xray Foot complete (Must choose side) Bilateral fore foot Referral Ordered: ordered Hearing Test Complete Appointment date/timeframe: 05/14/2013 Referral Referred To: ordered RANDALL BAILEY [facility] [address] [place] [address], [address] [phone] Ordered: RANDALL BAILEY. Plastic Surgery - Facial. Consult and treat. Appointment date/timeframe: 08/29/2012 Referral Ordered: ordered Screening Mammogram, Bilateral, 2 Views Each Referral Referred To: ordered ADOLFO WINKLER [address] [place], [address] [phone] Ordered: ADOLFO WINKLER. Ophthalmology. Consult and treat. Appointment date/timeframe: 02/13/2009 Appointment DEANNA SALMON Type Problem Goal Intervention Status Start [...] for recheck. Thank you for choosing the [facility] Walk In. We hope that you [...] go Related to Elevated liver enzymes to [facility] for testing a=nd possibole treatment. [...] Start cephalexin, on three times Related to [place] infected daily. use a donut cusion around [...] cardiology . Related to Palpitations Will continue [facility] plavix. Will follow Related to TIA (transient ischemic up with Dr. Mustafa. will follow up attack) with [facility] issues below. EKG with NSR, [...] for prophalysis Continues to follow with Dr. Readling. Related to Chronic lymphocytic leukemia of B-cell [...] of Related to Bronchitis fluids, rest. Continue current dose of thyroid and Related to Hypothyroidism follow up on labs. Continue fluoxetine. Related to Depression Will recheck lipid profile today. Related to [...]
--- OUTSIDE RECORDS SUMMARY | 2019-04-08 19:06 | XMS REPORT | Continuity of Care Document ---
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 [phone] Problems Active Problems Provider Date Chronic lymphoid [...] 1 by mouth once a Unknown day [id number] Tablets Synthroid 1 po 2 days on, 1 Unknown 175mcg day off Tablets Plavix 1 by mouth every Unknown 75mg Tablets day Immunizations CPT Code Status Date Vaccine Lot # [id number] Given 12/28/2016 Influenza (Fluzone) 3 years of age and older [id number] Given 11/17/2010 Flu Vaccine [id number] Given 11/22/2006 Flu Vaccine [id number] Given 12/01/2004 Flu Vaccine [id number] Vital Signs Date Vital Result Comment 02/20/2019 [...] Note CBC + Auto Diff 02/20/[address] [facility] WBC 22.1 K/uL High 4- 10.[address] [place] [phone] RBC 4.26 M/uL 4.00-6.30 HGB 12.6 g/dL 12.0-17.0 HCT 39.7 % 37.0-51.0 MCV 93.2 fL 80.0-97.0 MCH 29.6 pg 26.0-32.0 MCHC 31.7 g/dL 31.0-36.0 Platelets 138 K/uL Low 150-400 MPV 10.7 fL High 6.0-10.0 RDW 15.5 % 13.0-16.5 Comp. Metabolic 02/20/[address] [facility] BUN 27 mg/dL High 7- [address] [place] [phone] Creatinine 0.9 mg/dL 0.5-1.5 Calcium 9.5 mg/dL [...] 7-52 BUN Crea Ratio 30.0 Ratio High 9- eGFR 63 High >60 1 CBC + Auto Diff 08/25/2018 [facility]house [facility] WBC 22.3 K/uL High 4- 10.[address] [place] [phone] RBC 4.51 M/uL 4.00-6.30 HGB 13.1 g/dL 12.0-17.0 HCT 40.1 % 37.0-51.0 MCV 88.9 fL 80.0-97.0 MCH 29.0 pg 26.0-32.0 MCHC 32.7 g/dL 31.0-36.0 Platelets 158 K/uL 150-400 MPV 10.2 fL High 6.0-10.0 RDW 14.4 % 13.0-16.5 Comp. Metabolic 08/25/[address] [facility] BUN 32 mg/dL High 7- [address] [place] [phone] Creatinine 1.0 mg/dL 0.5-1.5 Calcium 9.4 mg/dL [...] 7-52 BUN Crea Ratio 32.0 Ratio High 11-04 eGFR 56 >60 2 1 The units [...] follow-up examination after Ludin Moncada MD completed treatdavid Plan of Treatment Future Appointment(s):08/28/2019 8:00 am - Ludin Moncada MD at [facility] Functional Status Description No Information Available Mental Status Description No Information Available Referrals Description No Information Available
--- OUTSIDE RECORDS SUMMARY | 2019-04-08 19:06 | XMS REPORT | Continuity of Care Document ---
:1955 Author Organization 0001 - S [facility] Address [address] [place] [address] Phone Care Team Providers Name Role Phone CARDIOLOGY, UNASSIGNED Unavailable Unavailable Allergies, Adverse Reactions, Alerts Substance Reaction Status chlorpheniramine Active ibuprofen Active PSEUDOEPHEDRINE HCL Active NAPROXEN SODIUM Active meloxicam Active aspirin Unknown Active WARNIN allergy(ies) could not be collected because the type is not supported. [facility] for further details. Medications Medication Instructions Dosage Effective Dates Status Comments (start - stop) Augmentin XR 1,000 take 2 tablet by 2.00 tablet - Active mg-62.5 mg oral route every 12 tablet,extended hours at the start release of a meal valacyclovir 1 gram take 1 caplet by 1000 MG - Active tablet ORAL route every 8 hours for 10 days Advair Diskus 250 inhale 1 by Oral 1 - Active mcg-50 mcg/dose route 2 times every powder for day inhalation gabapentin 600 mg take 1 [...] Flonase Allergy spray 1 - 2 spray by 50-100 MCG - Active Relief 50 intranasal route mcg/actuation nasal every day in each spray,suspension nostril as needed Plavix 75 mg tablet take 1 tablet by 75 MG - Active ORAL route every day Ventolin HFA 90 inhale 2 puff by 2 puff - Active mcg/actuation Inhalation route aerosol inhaler every 4 - 6 hours as needed Synthroid 175 mcg take 1 tablet - Active tablet (175MCG) by oral route, two days alternating with one day of 150mcg. Synthroid 150 mcg TAKE 1 TABLET BY - Active tablet MOUTH DAILY ALTERNATING WITH 2 DAYS OF 175MCG EpiPen 0.3 mg/0.3 mL Take as directed - Active injection, auto-injector Synthroid 175 mcg take 1 [...] one tablet by - Active mouth daily Problems Condition Effective Dates (start - stop) Clinical Status Acute non-recurrent maxillary sinusitis Elevated liver enzymes Acquired hypothyroidism Mixed dyslipidemia Screening for viral disease Acute maxillary sinusitis, recurrence not specified Abscess Elevated liver enzymes Lyme disease Dark urine Right upper quadrant pain Erythema migrans (Lyme disease) [place] infected Acute pharyngitis, unspecified Toe infection Acute [...] disorder w/o agroaphobia 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 [address] [place] [address], [address], tel:[phone] 2019 - [facility] Primary Acute Jan- [facility] Leftronic, [facility] non-recurrent ROB. [facility] [place] maxillary 9 PC 119 [facility] sinusitisElefirst[facility] [place], [place], [place] enzymesAcquired [address]. [place], hypothyroidismMix tel:[phone], ed 925606 tel:[phone] dyslipidemiaScree [phone] shari for viral disease 2019 - [facility] Primary Dec-0 [facility], [facility] ROB. [facility] [address] 9 PC 119 [place], [place], [place] [address]. [place], tel:[phone], [place] 798190 tel:[phone] 0001 - S Primary Nov-2 [facility] Leftronic, [facility] 0 ROB. [facility] [address] [place] [address] 9 PC 119 [place], [place], [place] [address]. [place], tel:[phone], 416880 tel:[phone] 0001 - [facility] Primary Nov-1 [facility], [facility] [place] ROB. [address] 9 PC 119 [place], [place], [place] [address]. [place], tel:[phone], [place] 703465 tel:[phone] 0001 - [facility] Primary Nov-0 [facility], [facility] [place] ROB. [facility] [address] 9 PC 119 [place], [place], [place] [address]. [place], tel:[phone], [place] 193801 tel:[phone] 0001 - [facility] Primary Acute maxillary Oct-2 [facility]IFF [facility], [facility] [place] sinusitis, ROB. [facility] recurrence not 9 PC 119 [place], [place], [place] [address]. [place], tel:[phone], [place] 753126 tel:[phone] 0001 - [facility] Primary Oct-2 [facility], [facility] [place] ROB. [address] 9 PC 119 [place], [place], [place] [address]. [place], tel:[phone], [place] 868090 tel:[phone] 0001 - [facility] Primary Oct-0 [facility]IFF [facility], [facility] ROB. [address] 9 PC 119 [place], [place], [place] [address]. [place], tel:[phone], [place] 220889 tel:[phone] 0001 - [facility] Walk-In Abscess Aug-2 CALLE [facility], Center 6 RUPERTO. [facility] Sameer 9 [address] [facility], [facility], [address]. [place], tel:[phone], [place] 893732 tel:[phone] 0001 - [facility] Primary Elevated liver Aug-0 [facility]IFF [facility], Care [facility] ROB. [facility] 33[address] Valley disease 9 PC 119 [place], [place], [place] [address]. [place], tel:[phone], [place] 695833 tel:[phone] 0001 - S Walk-In Dark urineRight Aug-0 CARVER S Inc, Center upper quadrant BEATA. 33-57 Sameer painErythema 9 4417 Sameer Hernán migrans (Lyme [facility], disease) [place], [place], [place], [address]. [address], [place] tel:[phone] tel:[phone] 0001 - S Primary [place] infected Jul- SKIFF S Inc, [facility] ROB. [facility] [address] 9 PC 119 [place], [place], [place] [address]. [place], tel:[phone], [place] 535406 tel:[phone] 0001 - S Walk-In Acute June- CARVER S Inc, Center pharyngitis, [place]. 33-57 Sameer unspecifiedToe 9 4417 Sameer Hernán infection [place], [place], [place], [address]. [address], [place] tel:[phone] tel:[phone] 0001 - S Walk-In Acute Apr- STEF HO. S Inc, Center conjunctivitis of 4417 Sameer 33-57 Sameer both eyes, 9 [facility] unspecified acute [facility], conjunctivitis [place], [place], [place] typeSinus [address]. [place], congestion tel:[phone], [place] 442345 tel:[phone] 0001 - S Primary Mar- SKIFF S Inc, [facility] ROB. [facility] [address] 9 PC 119 [place], [place], [place] [address]. [place], tel:[phone], [place] 806534 tel:[phone] 0001 - S Primary Feb-3 [facility], [facility] [place] ROB. [facility] [address] 9 PC 119 [place], [place], [place] [address]. [place], tel:[phone], [place] 008710 tel:[phone] 0001 - [facility] Primary Moderate Feb- SKIFF [facility], [facility] [place] persistent ROB. [facility] [address] asthmatic 9 PC 119 [facility] bronchitis with [facility], acute [place], [place], [place] exacerbationCat [address]. [place], bite of left tel:[phone], [place] hand, initial 732803 tel:+60 encounter ^Bitten [id number] by cat, initial encounter 0001 - [facility] Primary Feb-0 [facility], [facility] [place] ROB. [facility] [address] 9 PC 119 [place], [place], [place] [address]. [place], tel:[phone], [place] 685922 tel:[phone] 0001 - S Primary Acute bronchitis, SKIFF [facility], [facility] [place] unspecified ROB. [facility] [address] organism 8 PC 119 [place], [place] [address]. [place], tel:[phone], [place] 342093 tel:[phone] 0001 - S Neuro TIA (transient Sep- MUSTAFA [facility], Inter Surg ischemic attack) CARMEN. 8 [facility], Street, [address], [place], [place], [place], [address], [place] [address]. tel:[phone] tel:[phone] - [facility] Primary Lymphadenitis Sep- [facility], [facility] [place] ROB. [facility] [address] 8 [address] 119 [place], [place], [place] [address]. [place], tel:[phone], [place] 927791 tel:[phone] 0001 - [facility] Chest pain, Sep-0 AHMED [facility] Inc, Cardiology unspecified BOUCHRA. [facility] typeMixed 8 30 [facility] hyperlipidemiaPal [place], Street, pitationsPrsnl hx [address], [place] of TIA (TIA), and [place], [place], cereb infrc w/[place], [address], [place] resid deficits [address]. tel:+ tel:[phone] - [facility] Primary Lymph nodes SKIFF S Inc, [facility] [place] enlargedTIA ROB. [facility] [place] (transient 8 PC 119 [facility] ischemic St, [facility], attack)Palpitatio [place], [place], [place] nsChronic [address]. [place], lymphocytic tel:[phone], [place] leukemia of 103827 tel:+60 B-cell type in [id number] remissionEncounte r for screening mammogram for breast cancer 0001 - [facility] Primary RESIDENTIAL ASSISTANT S Inc, [facility] [place] CARE. . Valley 8 [facility], [place], [address], [place] tel:+ [phone] 0001 - [facility] Primary Chest pain, Aug- RISING S Inc, Care [place] unspecified type SYLVAIN. [address] [place], [place], Street, [address]. [place] tel:[phone] [place], [place], 377229 [address], [place] tel:+ [phone] 0001 - [facility] Primary Vascular bruit Dec- [facility] Inc, [place] ROB. [facility] [place] 7 PC 119 [facility], [place], [place], [place] [address]. [place], tel:[phone], [place] 426330 tel:[phone] 0001 - [facility] Primary Mixed Dec- [facility] Inc, [facility] hyperlipidemiaPos ROB. [facility] [place] tprocedural 7 PC 119 [facility] hypothyroidismUns [facility], pecified [place], [place], [place] sensorineural [address]. [place], hearing tel:[phone], [place] lossChronic 966633 tel:[phone] lymphocytic [phone] leukemia of B-cell type in remissionBruit 0001 - [facility] Primary Mixed June-3 [facility] Inc, [facility] [place] hyperlipidemiaHyp 0- ROB. [facility] [place] othyroidism, 7 PC 119 Jose A Erickson unspecified [facility], [place], [place], [place] [address]. [place], [place], tel:[phone], [place] 693656 tel:[phone] 0001 - [facility] Primary Tick bite, [facility] Inc, [facility] [place] subsequent 9 ROB. [facility] 3357 [place] encounterAching 7 PC 119 georgia Erickson headacheNeck [facility], painAcute [place], [place], [place] left-sided low [address]. [place], back pain without tel:[phone], [place] sciatica 960772 tel:[phone] 0001 - [facility] Primary Acute Aug- [facility] Inc, [facility] conjunctivitis of ROB. [facility] [place] right eye, 6 PC 119 Jose A Erickson unspecified acute [facility], conjunctivitis [place], [place], [place] type [address]. [place], tel:[phone], [place] 935416 tel:[phone] 0001 - Encounter for S Inc, screening 0 mammogram for 6 Hernán high-risk patient Street, [place], [address], [place] tel:[phone] 0001 - [facility] Primary HivesEncounter [facility], [facility] for screening ROB. [facility] 3357 [place] mammogram for 6 PC 119 georgia Hernán high-risk [facility], patientPostproced [place], [place], [place] ural [address]. [place], hypothyroidismChr tel:[phone], [place] onic lymphocytic 989701 tel:+60 leukemia of [phone] B-cell type in remission 0001 - [facility] Primary Acute bronchitis, Feb- [facility] Inc, [facility] [place] unspecified 4- ROB. [facility] [address] [place] [address] 6 PC 119 Jose A Erickson [facility], [place], [place], [place] [address]. [place], tel:[phone], [place] 030307 tel:[phone] 0001 - [facility] Primary Sciatica Bryan-2 [facility]IFF [facility], [facility] [place] associated with 2-201 ROB. S 33-57 Valley disorder of 6 PC 119 Jose A Erickson [facility], [facility], [place], [place], [place] [address]. [place], tel:[phone], [place] 235160 tel:[phone] 0001 - [facility] Primary Sciatica Bryan-0 [facility]IFF [facility], [facility] [place] associated with 8-201 ROB. S 33-57 [place] disorder of 6 PC 119 Jose A Erickson lumbar spine, [facility], [place], [place], [place] [address]. [place], tel:[phone], [place] 239210 tel:[phone] 0001 - [facility] Primary Sciatica Bryan-0 SKIFF [facility], [facility] [place] associated with 4-201 ROB. S 33-57 [place] disorder of 6 PC 119 Jose A Erickson lumbar spine, [facility], [place], [place], [place] [address]. [place], tel:[phone], [place] 592592 tel:[phone] 0001 - [facility] Primary Acute maxillary Dec-2 SKIFF [facility], [facility] [place] sinusitis, 3-201 ROB. S 33-57 Valley recurrence not 5 PC 119 Jose A Erickson specified [facility], [place], [place], [place] [address]. [place], tel:[phone], [place] 220780 tel:[phone] 0001 - [facility] Primary Acute maxillary Oct-0 EZRA [facility] Inc, [facility] [place] sinusitis, 1-201 LAURA. recurrence not 5 498 [facility] specified [facility], [place] [address], [place], [place], [address], [place], [address]. tel:+60 tel:[phone] - [facility] GI Neop, bng, large Aug- MOUNA [facility] Inc, intestineFamily 1-201 MEGAN. 40 33-57 History, Other [address] [facility] [address], [address], Disorders 3, [facility], [place], [address]. [address], [place] tel:[phone] tel:[phone] 0001 - S Primary Bronchitis Carloz-0 SKIFF [facility], [facility] [place] ROB. [address] 5 PC 119 [place], [place], [place] [address]. [place], tel:[phone], [place] 339865 tel:[phone] 0001 - S Primary HypothyroidismMix Feb- SKIFF [facility], [facility] [place] ed [address] HyperlipidemiaDep 5 PC 119 [facility] ression [place], [place], [place] [address]. [place], tel:[phone], [place] 420743 tel:[phone] 0001 - S Primary Hypothyroidism, Bryan- SKIFF [facility] Inc, [facility] [place] postsurgicalMixed ROB. [address] HyperlipidemiaThe 5 PC 119 [facility] rapeutic [facility], [place], [place], [place] [address]. [place], tel:[phone], [place] 053853 tel:[phone] 0001 - S Primary Zoster ocular Sep-1 [facility]IFF [facility], [facility] [place] disease 2-[address] 4 PC 119 [place], [place], [place] [address]. [place], tel:[phone], [place] 613020 tel:[phone] 0001 - S Primary Zoster ocular Sep-0 SKIFF [facility], [facility] [place] disease 3-[address] 4 [address] 119 [place], [place], [place] [address]. [place], tel:[phone], [place] 761806 tel:[phone] 0001 - [facility] Primary Aug-2 SKIFF [facility], [place] ROB. [address] 4 PC 119 georgia [facility], [place], [place], [place] [address]. [place], tel:[phone], [place] 452518 tel:[phone] 0001 - [facility] Primary Asthma, intrinsic Carloz-0 SKIFF S Inc, [place] w/o status 2-201 ROB. [facility] [place] asthmaticusFoot 4 PC 119 [facility] Hernán pain [facility], [place], [place], [place] [address]. [place], [place], tel:[phone], [place] 650674 tel:[phone] 0001 - [facility] Primary Acute upper Mar-2 SKIFF Referring S Inc, [facility] [place] respiratory 4- ROB. [facility] Provider: [place] infectionBronchit 4 PC 119 ge[place]ia Erickson isHearing [facility], [place], [place], PC 119 [place] [address]. [facility], [place], [place], tel:[phone] [place] [address], 363579 [place], tel:+60 [facility] [address]. [id number] tel:[phone] 0001 - [facility] Primary Upper Respiratory Nov-2 SCHECTER Referring S Inc, Care [place] Infection, Acute ISAAK. Provider: 3 [facility]7 Sameer ISAAK [address] [facility], [place], [place], , 4417 [place] [address]. [place], tel:[phone] [address] [place] [address], 690203 [place], tel:+160 [facility] [address]. 97440361 tel:[phone] 0001 - [facility] Primary Mixed Sep-0 SKIFF S Inc, [facility] [place] HyperlipidemiaThe 3-201 ROB. [facility] [place] rapeutic Drug 3 PC 119 [facility], deficiency [place], [place], [place] [address]. [place], [place], tel:[phone], [place] 795555 tel:[phone] 0001 - [facility] Follow-up Aug- LYNN S Inc, ENT/Facial examination, 0-201 RANDALL. 30 Plastic after surgery 3 [facility] Surgery NOSSensorineural , [address], Hearing Loss, 355, [place], [place], [place], [address], [place] [address]. tel:+ tel:[phone] - S Neop, bng, LYNN Referring S Inc, ENT/Facial scalp/skin, neck 3 RANDALL. 30 Provider: [facility] 3 [facility], [address] LYNN, [address], 355, [facility] Suite [facility], [place], [place], [place], 355, [address], [place] [address]. [place] tel: tel:+60 [place], [place], [phone]. tel:[phone] 0001 - [facility] Primary Sprain/strain, [facility] Inc, [facility] [place] hip/thigh ROB. [facility] [place] NECNeop, UB, skin 3 PC 119 [place], [place], [place] [address]. [place], tel:[phone], [place] 573701 tel:+ [phone] 0001 - [facility] Primary Muscle strain of [facility] Referring S Inc, [facility] gluteal region ROB. [facility] Provider: [place] 3 PC 119 [place], [place], PC 119 [place] [address]. [facility], [place], [place], tel:[phone] [place] [address], [place] 230755 [place], tel:+60 [facility] [address]. [id number] tel:[phone] 0001 - [facility] Primary Mixed SKIFF S Inc, [facility] HyperlipidemiaHyp ROB. [facility] [place] othyroidism, 2 PC 119 [facility] postsurgicalTexas Health [facility]auf[facility], [place], [place] othyroidism, [address]. [place], postsurgical tel:[phone], [place] 857548 tel:[phone] 0001 - S Primary Mixed Apr-2 [facility] [place] HyperlipidemiaHyp 5-[address] othyroidism, 2 PC 119 [facility] postsurgicalMixed [facility], Hyperlipidemia [place], [place], [place] [address]. [place], tel:[phone], [place] 709592 tel:[phone] 0001 - S Primary Upper Respiratory Feb-2 [facility] [place] Infection, [address] AcuteMixed 2 PC 119 [facility] HyperlipidemiaHyp [facility], othyroidism, [place], [place], [place] postsurgicalUpper [address]. [place], Respiratory tel:[phone], [place] Infection, 173113 tel:[phone] AcuteMixed [phone] HyperlipidemiaHyp othyroidism, postsurgical 0001 - [facility] Primary Therapeutic Drug Mar-3 [facility], [facility] [place] MonitoringBronchi 1- ROB. [address] tis, Acute 1 PC 119 [facility], [place], [place], [place] [address]. [place], tel:[phone], [place] 167064 tel:[phone] 0001 - S Primary Bronchitis, Acute Mar-1 [facility] Inc, [place] 7- ROB. [address] 1 PC 119 [place], [place], [place] [address]. [place], tel:[phone], [place] 998227 tel:[phone] 0001 - S Primary Bronchitis, Acute Oct-2 [facility] Inc, [place] [address] 0 PC 119 [place], [place], [place] [address]. [place], tel:[phone], [place] 116933 tel:[phone] 0001 - S Primary Upper Respiratory Oct-1 SKIFF Referring [facility] Inc, [facility] [place] Infection, Acute 4- ROB. [facility] Provider: [address] [place] [address] 0 PC 119 [facility], [place], [place], PC 119 [place] [address]. [place], [place], tel:[phone] [place] [address], [place] 670222 [place], tel:+60 [place], [address]. [id number] tel:[phone] 0001 - S Primary Conjunctivitis May- [facility] Referring S Inc, [facility] [place] NOSSinusitis, 6201 ROB. [facility] Provider: [address] [place] [address] Acute 0 PC 119 [facility], [place], [place], PC 119 [place] [address]. [place], [place], tel:[phone] [place] [address], [place] 378394 [place], tel:+60 [place], [address]. [id number] tel:[phone] 0001 - [facility] Primary Sinusitis, [facility] Inc, [facility] [place] AcuteDepression 4-[address] 0 PC 119 [facility], [place], [place], [place] [address]. [place], tel:[phone], [place] 839598 tel: [phone] 0001 - [facility] Primary Disturbance, Bryan- [facility], [facility] visual 6- ROB. [address] NECDisturbance, 0 PC 119 [facility], NECDisorder, [place], [place], [place] depressive [address]. [place], NECLeukemia, tel:[phone], [place] chronic lymphoid, 353790 tel:[phone] in [phone] remissionFailure, postablative ovarian 0001 - [facility] Primary Incontinence, [facility] Inc, [facility] [place] mixed, 1-200 ROB. [place] [address] urge/stressAsthma 8 PC 119 [facility] , intrinsic w/o [facility], status [place], [place], [place] asthmaticusAsthma [address]. [place], , intrinsic w/o tel:[phone], [place] status 077287 tel:+60 asthmaticusDisord [id number] er, depressive NECHypothyroidism , postsurgical 0001 - [facility] Primary Incontinence, Nov-0 SKIFF S Inc, [facility] [place] mixed, 4-200 ROB. [facility] urge/stress 8 PC 119 [place], [place], [place] [address]. [place], tel:[phone], 064225 tel:[phone] 0001 - [facility] Primary Sinusitis, acute Oct-2 TERESA Referring S Inc, [facility] [place] maxillary 4-200 ELIZABET. Provider: 8 [facility], [place], [facility], [address]. 54 [facility] tel:+[phone] [place], [place], 358143 [place], [address], [facility], [address]. tel: tel:[phone] 0001 - [facility] Primary Sinusitis, acute June-3 SKIFF Referring S Inc, [facility] [place] NOS 0-200 ROB. [facility] Provider: [place] 8 PC 119 [place], [place], PC 119 [place] [address]. [place], [place], tel:[phone] [place] [address], 256[address] [place], tel:+ [place], [address]. 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 [facility] Provider: [facility], acute NOS 8 PC 119 [place], [place], PC 119 [place] [address]. [place], tel:[phone] [place] [address], 301436 [place], tel:+60 [place], [address]. [id number] tel:[phone] 0001 - [facility] Primary Sciatica Bryan-2 SKIFF S Inc, [facility] [place] 2-200 ROB. [facility] 8 PC 119 [place], [place], [place] [address]. [place], tel:[phone], 417680 tel:[phone] 0001 - [facility] Primary Sinusitis, acute Apr-2 SKIFF Referring S Inc, [facility] [place] NOS 3-200 ROB. [facility] Provider: 33-57 7 PC 119 [facility] [facility], [place], [place], PC [address] [address]. [facility], [place], [place], tel:[phone] [place] [phone], [place] [id number] [place], tel:+60 [place], [phone]. [phone] tel:[phone] 0001 - [facility] Primary Bronchitis, Mar-0 [facility], [facility] [place] acuteLeukemia, 6-200 ROB. [facility] 33-57 chronic lymphoid, 7 PC 119 [facility] in [facility], remissionLeukemia [place], [place], [place] , chronic [address]. [place], [place], lymphoid, in tel:[phone], remission [phone] tel: [phone] 0001 - [facility] Primary Dec-2 TERESA Referring S Inc, [facility] [place] 6-200 ELIZABET. Provider: 33-57 6 [facility], [place], [facility], [address]. 54 [facility] tel:[phone] , [place], [place], [address] [place], [address], [facility], [address]. tel: tel:[phone] 0001 - [facility] Primary Nov-0 [facility], [facility] [place] 9-200 ROB. [facility] Provider: 33-57 6 PC 119 [facility], [place], [place], PC [address] [address]. [facility], [place], [place], tel:[phone] [place] [phone], [phone] [place], tel:+60 [place], [address]. [phone] tel:[phone] 0001 - [facility] Primary Reflux, Oct-2 [facility], [facility] [place] esophageal 4-200 ROB. [facility] 33-57 6 PC 119 [facility], [place], [place], [place] [address]. [place], [place], tel:[phone], [place] [phone] tel:[phone] 0001 - [facility] Primary Leukemia, chronic Oct- [facility] [place] lymphoid, in 0-200 ROB. [facility] 33-57 remissionSinusiti 6 PC 119 georgia Erickson s, acute NOS [facility], [place], [place], [place] [address]. [place], [place], tel:[phone], [place] 830581 tel:[phone] 0001 - S Primary Hypothyroidism, Apr-0 [facility] [place] postsurgicalHyper 3-200 ROB. [facility] 33-57 lipidemia, 6 PC 119 [facility] mixedAsthma, [facility], intrinsic w/o [place], [place], [place] status [address]. [place], [place], asthmaticusMigrai tel:[phone], [place], classical w/o 902147 tel:[phone] [facility] [phone] migraine 0001 - [facility] Primary Panic disorder Feb- [facility], [facility] [place] w/o agroaphobia 6-200 ROB. [facility] 33-57 6 PC 119 [facility], [place], [place], [place] [address]. [place], tel:[phone], [place] 306756 tel:[phone] 0001 - [facility] Primary Apr-0 [facility], Care [place] 7-200 LASHONDA. 33-57 5 [facility], [place], [place] [address]. [place], tel:[phone], [phone] tel:[phone] Family History Family Member Diagnosis Age At [...] Covered constitution party ID Authorization(s) Sonal Ramos [id number] Medicare Mc [id number] Social History Type Description Quantity Date Captured [...] 09/28/2017 Referral Ordered: ordered Referrals: Cardiology. Location: [facility] Cardiology Appointment date/timeframe: 1 Week Referral Referred To: ordered DENIS MAYFIELD MD [address] [facility] [address] [place], [address] [phone] Ordered: Referrals: Hematology/Oncology. DENIS MAYFIELD MD. Follow-up [...] Referral Referred To: ordered [address] [place], [address] [phone] Ordered: VAZQUEZ RANDOLPH. Ophthalmology. Appointment date/timeframe: 10/10/2013 Referral Ordered: ordered Xray Foot complete (Must choose side) Bilateral fore foot Referral Ordered: ordered Hearing Test Complete Appointment date/timeframe: 05/14/2013 Referral Referred To: ordered RANDALL BAILEY [facility] [address] [place], [address] [phone] Ordered: RANDALL BAILEY. Plastic Surgery - Facial. Consult and treat. Appointment date/timeframe: 08/29/2012 Referral Ordered: ordered Screening Mammogram, Bilateral, 2 Views Each Referral Referred To: ordered ADOLFO WINKLER [address] [place], [address] [phone] Ordered: ADOLFO WINKLER. Ophthalmology. Consult and treat. Appointment date/timeframe: 02/13/2009 Appointment DEANNA SALMON Date Type Problem Goal Intervention Status Start Date [...] for recheck. Thank you for choosing the [facility] Walk In. We hope [...] go Related to Elevated liver enzymes to [facility] for testing a=nd possibole treatment. Doxycycline [...] Start cephalexin, on three times Related to [place] infected daily. use a donut cusion around [...] Dr. Mustafa. will follow up attack) with [facility] issues below. EKG with NSR, confirmed [...]
[2019-04-08 19:10] VITALS: BP 130/49
--- NOTE | 2019-04-08 19:29 | UC ---
Throat Pain/Nasal Abel HPI - HPI Summary HPI Summary: 63-year-old woman comes in with upper respiratory tract infection symptoms for one week. She has rhinorrhea cough chest congestion. Her sputum and rhinorrhea or yellow. She had been having chills. She does have a history of asthmas been using her albuterol which does help with the symptoms. Mild sore throat. - History of Current Complaint Chief Complaint: UCGeneralIllness Stated Complaint: COUGH, SINUS ISSUE Time Seen by Provider: 04/08/19 19:06 Hx Last Menstrual Period: post Pain Intensity: 2 - Allergies/Home Medications Allergies/Adverse Reactions: Allergies Allergy/AdvReac Type Severity Reaction Status Date / Time NSAIDS (Non-Steroidal Allergy Swelling Verified 11/27/17 12:53 Anti-Inflamma Of Face,Lips,& Throat Home Medications: Home Medications Atorvastatin* [Lipitor 10 MG*] 10 mg PO BEDTIME 05/15/13 [History Confirmed 02/26] Gabapentin CAP(*) [Neurontin 300 CAP(*)] 300 mg PO BEDTIME 05/15/13 [History Confirmed 04/08/19] Multivit-Min/FA/Lycopen/Lutein [Centrum Silver Tablet] 1 tab PO DAILY 05/15/13 [ History Confirmed 04/08/19] Albuterol HFA INHALER* [Ventolin HFA Inhaler*] 1 - 2 puff INH Q4H PRN #1 mdi 06/22 [Rx Confirmed 04/08/19] Pantoprazole TAB * [Protonix TAB*] 40 mg PO DAILY 01/12/16 [History Confirmed ] EPINEPHrine AMP 1 MG/ML* 0.3 mg SUBCUT ONCE 11/10/16 [History Confirmed 04/08/19 ] ZOLMitriptan [Zomig] 2.5 mg PO DAILY PRN 11/10/16 [History Confirmed 04/08/19] Acyclovir* [Zovirax 200 MG CAP*] 200 mg PO DAILY 10/09/17 [History Confirmed 02/26] Calcium/Vitamin D TAB 250/125* [Oscal D TAB 250/125*] 500 mg PO DAILY 10/09/17 [ History Confirmed 04/08/19] FLUoxetine CAP* [Prozac CAP*] 60 mg PO DAILY 10/09/17 [History Confirmed ] Levothyroxine TAB* [Synthroid 150 MCG TAB*] 150 mcg PO DAILY 10/09/17 [History Confirmed 04/08/19] Levothyroxine TAB* [Synthroid TAB*] 175 mcg PO DAILY 10/09/17 [History Confirmed 04/08/19] Fluticasone-Salmeterol 250-50* [Advair Diskus 250-50*] 1 puff INH BID #1 diskus 11/27/17 [Rx Confirmed 04/08/19] DOXYcycline CAP(*) [DOXYcycline 100MG CAP(*)] 100 mg PO BID #18 cap 04/08/19 [Rx ] PMH/Surg Hx/FS Hx/Imm Hx Previously Healthy: Yes - CLL,LYME DX Endocrine History: Hypothyroidism Respiratory History: Asthma Other History Of: Negative For: Hepatitis B, Hepatitis C - Surgical History Surgical History: Yes Surgery Procedure, Year, and Place: tonsilectomy. thyroidectomy. hysterectomy. bladder lift with mesh. nasal reconstruction. mastectomy. left breast mastectomy - Family History Known Family History: Positive: Hypertension, Diabetes - Social History Alcohol Use: Rare Substance Use Type: None Smoking Status (MU): Never Smoked Tobacco Have You Smoked in the Last Year: No - Immunization History Most Recent Influenza Vaccination: none Review of Systems All Other Systems Reviewed And Are Negative: Yes Constitutional: Positive: Other - SEE HPI Skin: Positive: Negative Eyes: Positive: Negative ENT: Positive: Sore Throat, Nasal Discharge Respiratory: Positive: Cough, Other - SEE HPI Cardiovascular: Positive: Negative Gastrointestinal: Positive: Negative Motor: Positive: Negative Neurovascular: Positive: Negative Musculoskeletal: Positive: Negative Neurological/Mental Status: Positive: Negative Psychological: Positive: Negative Is Patient Immunocompromised?: No Physical Exam Triage Information Reviewed: Yes Appearance: No Pain Distress, Well-Nourished, Ill-Appearing - MILD Vital Signs: Initial Vital Signs Temp 99.3 F 04/08/19 19:04 Pulse 77 04/08/19 19:04 Resp 16 04/08/19 19:04 BP 130/49 04/08/19 19:04 Pulse Ox 98 04/08/19 19:04 Vital Signs Reviewed: Yes Eye Exam: Normal Eyes: Positive: Conjunctiva Clear ENT: Positive: Pharyngeal erythema, Nasal congestion, Nasal drainage, TMs normal Neck: Positive: Supple Respiratory: Positive: No respiratory distress, Rhonchi Cardiovascular: Positive: RRR Musculoskeletal: Positive: Strength Intact, ROM Intact Neurological: Positive: Alert, Muscle Tone Normal Psychological: Positive: Normal Response To Family, Age Appropriate Behavior Skin Exam: Normal Throat Pain/Nasal Course/Dx - Course Course Of Treatment: DISCUSSED VIRAL VERSES BACTERIAL INFECTIONS AND THE ROLE OF ANTIBIOTICS. PATIENT PREFERS TO BE ON ANTIBIOTICS AT THIS TIME. - Differential Dx/Diagnosis Provider Diagnosis: Bronchitis with bronchospasm Discharge ED - Sign-Out/Discharge Documenting (check all that apply): Patient Departure All imaging exams completed and their final reports reviewed: No Studies - Discharge Plan Condition: Stable Disposition: HOME Prescriptions: DOXYcycline CAP(*) [DOXYcycline 100MG CAP(*)] 100 mg PO BID #18 cap Patient Education Materials: Acute Bronchitis (ED), Bronchospasm (ED) Referrals: Sobia PECK,Destin Lainez [Primary Care Provider] - Additional Instructions: FOLLOW UP WITH YOUR DOCTOR IF NOT COMPLETELY IMPROVED. GET REEVALUATED SOONER IF NOT IMPROVED OR WORSE OR ANY QUESTIONS OR CONCERNS. - Billing Disposition and Condition Condition: STABLE Disposition: Home
[2019-04-08] MEDS ORDERED: DOXYcycline CAP(*) 100 MG PO ONE ×2 (19:31→19:32)
[2019-04-08 19:36] LABS: Influenza A Molecular Negative (Negative); Influenza B Molecular Negative (Negative)
== END 2019-04-08 19:40 | disposition home or self-care (01) ==
LOC: UCEAST 18:58
DX: J45.909 Unspecified asthma, uncomplicated (principal); E03.9 Hypothyroidism, unspecified; Z79.890 Hormone replacement therapy; Z85.6 Personal history of leukemia; Z79.51 Long term (current) use of inhaled steroids; Z88.6 Allergy status to analgesic agent
CPT/HCPCS: 87651; 99212; A9270-GY; G0463